=== PATIENT | female | born 1980 | race Caucasian/White ===

== ENCOUNTER → 2020-01-27 11:22 | Outpatient (BNVA) | payer OTHER, SELFPAY | PROVIDERS: PCP Internal Medicine; Visit Provider Physician Assistant | DX: Z98.84 Bariatric surgery status (principal); Z68.26 Body mass index [BMI] 26.0-26.9, adult; Z71.3 Dietary counseling and surveillance | CPT/HCPCS: 99214 ==

== ENCOUNTER 2020-03-07 07:58 | Emergency (ER) | payer OTHER, SELFPAY ==
[2020-03-07 08:08] VITALS: BP 120/71; PULSE 63; RESP 16; TEMP 36.9; O2SAT 99; BMI 30.2
--- NOTE | 2020-03-07 08:12 | ED.ASTHMA ---
HPI - Asthma General Chief Complaint: Asthma Stated Complaint: Asthma Time Seen by Provider: 03/07/20 08:12 Source: patient Mode of arrival: ambulatory Limitations: no limitations History of Present Illness HPI Narrative: 4 days of slight wheezing and cough complaint: asthma attack Onset (ago): day(s) Severity: mild Context: ran out of meds and medication non-compliance Associated symptoms: dry cough Asthma History: history of prior ED visit Related Data Current Asthma Therapy: none Home Medications Medication Instructions Recorded Confirmed albuterol (refill) 90 mcg INHALATION 01/27/20 01/27/20 mcg/actuation aerosol inhaler albuterol sulfate 2.5 mg INHALATION Q4-6H PRN 01/27/20 01/27/20 dicyclomine 20 mg tablet 20 mg PO BID 01/27/20 01/27/20 docusate sodium 100 mg capsule 100 mg PO DAILY 01/27/20 01/27/20 fluticasone propionate 110 1 puff INHALATION BID 01/27/20 01/27/20 mcg/actuation HFA aerosol inhaler loratadine 10 mg tablet 10 mg PO DAILY 01/27/20 01/27/20 quetiapine 25 mg tablet 25 mg PO DAILY 01/27/20 01/27/20 tramadol 50 mg tablet 50 mg PO BID PRN 01/27/20 01/27/20 zolpidem 10 mg tablet 10 mg PO BEDTIME PRN 01/27/20 01/27/20 Previous Rx's Medication Instructions Recorded docusate sodium 100 mg capsule 100 mg PO DAILY #30 cap 01/27/20 docusate sodium 100 mg capsule 100 mg PO DAILY #30 cap 01/27/20 albuterol sulfate 2 puff INHALATION QID #18 g 03/07/20 prednisone 60 mg PO DAILY #12 tab 03/07/20 Allergies Allergy/AdvReac Type Severity Reaction Status Date / Time iodine [Iodine] Allergy Severe ANAPHYLAXIS Verified 01/26/20 14:28 norethandrolone Allergy Severe TRIGGERS Verified 01/26/20 14:28 [NORETHANDROLONE] MIGRAINES Penicillins [PENICILLINS] Allergy Severe SWELLING/RA Verified 01/26/20 14:28 SH cyclobenzaprine Allergy Intermediate H/A,PALPITA Verified 01/26/20 14:28 [CYCLOBENZAPRINE] TIONS latex [LATEX] Allergy Intermediate HIVES,ITCHI Verified 01/26/20 14:28 NG Pt state s no known food Allergy Unknown Unknown Uncoded 01/26/20 14:27 Aller Review of Systems Constitutional: Constitutional: Reports no additional constitutional complaints Eyes: Eyes: Reports no additional eye complaints ENT: Denies dizziness Cardiovascular: Cardiovascular: Reports no additional cardiovascular complaints Respiratory: Respiratory: Reports as per HPI Gastrointestinal: Gastrointestinal: Reports no additional gastrointestinal complaints Genitourinary: Genitourinary: Reports no additional female genitourinary complaints Musculoskeletal: Musculoskeletal: Reports no additional musculoskeletal complaints Integumentary/Breasts: Skin/Breast: Denies rash Neurologic: Reports system reviewed and no additional complaints, except as documented, Denies dizziness and Denies Sensory deficit (Neuro) Psychiatric: Psychiatric: Denies anxiety PMFSH Past Medical History Medical History Acute depression Asthma Dysfunctional uterine bleeding GERD (gastroesophageal reflux disease) Hx of migraines Seizures Spina bifida Surgical History History of Lizzy-en-Y gastric bypass History of surgery on arm Family History Family History Father DM (diabetes mellitus) Asthma CVD (cardiovascular disease) Mother HTN (hypertension) DM (diabetes mellitus) Asthma CVD (cardiovascular disease) Brother No problems noted. Brother No problems noted. Sister No problems noted. Sister No problems noted. Social History Social History Alcohol intake: never Smoking Status: Never smoker Advance Directives: No Advance Directives Information Provided: No Physical Exam Vital Signs: Vital Signs: Last Vital Signs Temp 98.4 F 03/07/20 08:08 Pulse 63 03/07/20 08:08 Resp 16 03/07/20 08:08 BP 120/71 03/07/20 08:08 Pulse Ox 99 03/07/20 08:08 Body Mass Index 30.2 Const: General: healthy appearing Nutritional Appearance: average body habitus Orientation/consciousness: oriented to person and patient oriented x3 Limitations: no limitations HENMT: Head: Yes normal to inspection Ears: external ears normal General nose exam: Normal external nose present Mouth: Normal oral and palatal mucosa present and oropharynx normal Throat: Yes posterior oropharynx normal Eyes: General: appearance normal, both eyes and all related structures Neck: Other: supple Neck: Yes normal visual inspection Chest: Chest palpation & inspection: normal inspection of the chest Resp: Other: slight wheeze Cardio: Jugular venous distension: no JVD Rate: regular rate Rhythm: regular rhythm Heart sounds: S1 normal heart sound present and S2 normal heart sound present GI: Inspection: Yes normal to inspection Palpation (GI): Soft to palpation, nontender and No hepatosplenomegaly present Auscultation: normal bowel sounds : General: Yes no CVA tenderness Back/Spine/Pelvis: Back: no CVA tenderness Skin: General skin exam: no rashes or lesions noted Neuro: General: oriented to person and patient oriented x3 Cranial nerves: Yes CN's II-XII intact bilaterally Motor exam (neuro): 5/5 motor strength present throughout Sensory Exam: No Sensory deficit (Neuro) Extrem: General: Yes normal to inspection Psych: Appearance: grossly normal Course Course Course Narrative: Patient with slight asthma will give MDI and dc home MDM - Asthma MDM Narrative Medical decision making narrative: straight forward asthma will dc home Differential Diagnosis Differential diagnosis: Likely Acute exacerbation Discharge Plan Discharge Clinical Impression: Asthma Patient Disposition: Home, Self-Care Prescriptions: New albuterol sulfate 90 mcg/actuation HFA aerosol inhaler 2 puff inhalation QID Qty: 18 RF: 0 prednisone 20 mg tablet 60 mg PO DAILY Qty: 12 RF: 0 No Action Flovent HFA 110 mcg/actuation HFA aerosol inhaler 1 puff inhalation BID RF: 0 albuterol sulfate 2.5 mg /3 mL (0.083 %) solution for nebulization 2.5 mg inhalation Q4-6H PRNRF: 0 albuterol (refill) 90 mcg/actuation aerosol inhalation RF: 0 quetiapine [Seroquel] 25 mg tablet 25 mg PO DAILY RF: 0 loratadine [Allergy Relief (loratadine)] 10 mg tablet 10 mg PO DAILY RF: 0 zolpidem [Ambien] 10 mg tablet 10 mg PO BEDTIME PRNRF: 0 dicyclomine 20 mg tablet 20 mg PO BID RF: 0 tramadol 50 mg tablet 50 mg PO BID PRNRF: 0 docusate sodium [Colace] 100 mg capsule 100 mg PO DAILY RF: 0 docusate sodium [Colace] 100 mg capsule 100 mg PO DAILY Qty: 30 RF: 1 docusate sodium [Colace] 100 mg capsule 100 mg PO DAILY Qty: 30 RF: 1 Referrals: Physician,Unknown [Primary Care Provider] - 2 days
[2020-03-07] MEDS: Albuterol Sulfate 90 MCG 8 GM INHALER 2 PUFF INHALE (08:41)
[2020-03-07] MEDS: predniSONE 20 MG TABLET 60 MG PO (08:41)
== END 2020-03-07 08:44 | disposition home or self-care (01) ==
PROVIDERS: Emergency Provider Emergency Medicine
DX: J45.909 Unspecified asthma, uncomplicated (principal); Z98.84 Bariatric surgery status; Z79.899 Other long term (current) drug therapy
CPT/HCPCS: 99283

== ENCOUNTER → 2020-08-10 08:41 | Outpatient (BNVA) | payer OTHER, SELFPAY | PROVIDERS: Visit Provider Physician Assistant | DX: Z98.84 Bariatric surgery status (principal) | CPT/HCPCS: Q3014 ==

== ENCOUNTER 2020-08-13 09:38 | Outpatient (REF) | payer OTHER, SELFPAY ==
[2020-08-13 10:24] LABS: MANUAL DIFF FLAG NO
[2020-08-13 10:28] LABS: Basophils Absolute Auto 0.1 X10*3/uL (0.0-0.2); Basophils Percent Auto 1.6 % (0-2); Eosinophils Absolute Auto 0.1 X10*3/uL (0.0-0.4); Eosinophils Percent Auto 1.9 % (0-4); Hematocrit 32.7 % (37-47); Hemoglobin 10.1 g/dl (12.0-16.0); Lymphocytes Absolute Auto 1.5 X10*3/uL (1.2-4.9); Lymphocytes Percent Auto 40.7 % (20-40); Mean Corpuscular HGB Conc 30.9 g/dl (31.0-35.0); Mean Corpuscular Hemoglobin 24.3 pg (27.0-33.0); Mean Corpuscular Volume 78.6 fL (80-98); Mean Platelet Volume 10.8 fL (9.4-12.3); Monocytes Absolute Auto 0.5 X10*3/uL (0.1-1.2); Monocytes Percent Auto 13.2 % (2-11); Neutrophils Absolute Auto 1.6 X10*3/uL (2.0-8.3); Neutrophils Percent Auto 42.6 % (45-73); Platelet Count 326 X10*3/uL (160-400); Red Blood Count 4.16 X10*6/uL (4.20-5.50); Red Cell Distribution Width 16.9 % (11.0-16.0); White Blood Count 3.7 X10*3/uL (4.8-10.8)
[2020-08-13 10:49] LABS: Estimated Average Glucose 103 mg/dL; Hemoglobin A1c % 5.2 %
[2020-08-13 10:59] LABS: Alanine Aminotransferase 10 U/L (0-31); Alkaline Phosphatase 64 U/L (39-117); Anion Gap 11 (12-20); Aspartate Amino Transferase 12 U/L (5-31); Bilirubin Total 0.5 mg/dL (0.0-1.0); Blood Urea Nitrogen 13 mg/dL (9-16); C Reactive Protein 0.25 mg/dL (< or = 0.50); Calcium 8.8 mg/dL (8.4-10.2); Carbon Dioxide 25 mmol/L (22-29); Chloride 107 mmol/L (96-108); Cholesterol 177 mg/dL; Estimated Glomerular Filt Rate > 60; Glucose Random 90 mg/dL (60-115); HDL Cholesterol 54 mg/dL; Iron 31 mcg/dL (30-160); LDL Cholesterol Calculated 115 mg/dl; Percent Iron Saturation 8 % (15-50); Sodium 139 mmol/L (135-145); Total Iron Binding Capacity 407 mcg/dL (228-428); Total Protein 6.7 g/dL (6.5-8.0); Triglycerides 40 mg/dL; Unsaturated Iron Binding 376 ug/dL
[2020-08-13 11:32] LABS: Folate 18.7 ng/mL (> or = 4.0); Vitamin B12 415 pg/mL (200-900)
[2020-08-13 11:41] LABS: Ferritin < 1 ng/mL (10-122); TSH reflex Free T4 0.95 uIU/mL (0.32-4.0); Vitamin D 25-OH Total 29.8 ng/mL (>30)
[2020-08-14 08:51] LABS: Insulin Level Total 5.7 uIU/mL
[2020-08-14 19:47] LABS: Calcium (PTHI) 8.8 mg/dL (8.6-10.2); PTHI 92 pg/mL (14-64)
[2020-08-16 02:52] LABS: Zinc 84 mcg/dL (60-130)
[2020-08-16 23:03] LABS: Vitamin A 31 mcg/dL (38-98)
[2020-08-17 11:32] LABS: Vitamin B1 <6 nmol/L (8-30)
== END 2020-08-13 09:39 | disposition home or self-care (01) ==
LOC: HO.LAB 09:38
PROVIDERS: PCP Internal Medicine Geriatric Medicine; Visit Provider Physician Assistant
DX: Z98.84 Bariatric surgery status (principal)
CPT/HCPCS: 36415; 80053; 80061; 82306; 82607; 82728; 82746; 83036; 83525; 83540; 83970; 84425; 84443; 84590; 84630; 85025; 86140

== ENCOUNTER 2020-09-11 09:14 | Outpatient (REF) | payer OTHER, SELFPAY | END 2020-09-11 09:15 | disposition home or self-care (01) | LOC: HO.LAB 09:14 | PROVIDERS: PCP Internal Medicine Geriatric Medicine; Visit Provider Internal Medicine | DX: Z20.822 Contact with and (suspected) exposure to COVID-19 (principal) | CPT/HCPCS: C9803; U0003; U0005 ==

== ENCOUNTER 2021-02-07 07:39 | Outpatient (REF) | payer OTHER, SELFPAY ==
[2021-02-07 15:23] LABS: CT PCR NOT DETECTED (Not Detect.); NG PCR NOT DETECTED (Not Detect.)
[2021-02-08 09:42] LABS: BV Int Neg Control Negative (Negative); BV Int Pos Control Positive (Positive)
[2021-02-12 18:30] LABS: Vitamin A 33 mcg/dL (38-98)
== END 2021-02-07 07:40 | disposition home or self-care (01) ==
LOC: HO.LAB 07:39
PROVIDERS: Advanced Practice Midwife; PCP Internal Medicine Geriatric Medicine; Visit Provider Physician Assistant
DX: Z11.3 Encounter for screening for infections with a predominantly sexual mode of transmission (principal); R10.2 Pelvic and perineal pain; N92.6 Irregular menstruation, unspecified
CPT/HCPCS: 36415; 84590; 87086; 87088; 87186; 87480; 87491; 87510; 87591; 87660; 99212

== ENCOUNTER 2021-02-25 10:17 | Outpatient (REF) | payer OTHER, SELFPAY ==
--- NOTE | ~2021-02-25 | US_ITS ---
EXAMINATION: US PELVIS CLINICAL INFORMATION: N92.6 - Irregular menstruation, unspecified. LMP 02/02/2021. Age 40. Left ovarian origin removed. COMPARISON: Pelvic ultrasound 02/18/2018, CT abdomen and pelvis 09/07/2017. TECHNIQUE: Ultrasound of the pelvis is performed using both transabdominal and transvaginal transducers along with Doppler. Transvaginal imaging is performed due to inadequate visualization transabdominally. FINDINGS: Uterus: The uterus is anteverted and measures 6.7 x 2.8 x 5.4 cm. Volume 53 mL. The double wall endometrial thickness is normal for reproductive age group,13 mm. The uterus is smooth in contour and has normal myometrial echogenicity. No visible fibroid. Adnexa: The right ovary measures 3.6 x 1.6 x 2.3 cm, volume 6.9 mL. There is no right adnexal mass or pelvic ascites. There is normal color flow to the right ovary. No torsion. There has been prior left salpingo-oophorectomy. No recurrent solid mass. There is a circumscribed cystic lesion left pelvis measuring 3.4 x 0.9 x 1.6 cm. There is no internal septation or solid component. There is increased through-transmission of sound. No associated color flow. US/US pelvic and transvaginal IMPRESSION: 1. Uterus: Double wall endometrial thickness 1.3 cm. No fibroid. 2. Normal right ovary. No pelvic ascites. 3. Prior left salpingo-oophorectomy. Benign avascular cystic lesion left pelvis 3.4 x 0.9 x 1.6 cm possibly peritoneal inclusion cyst or paraovarian cyst.
[2021-02-25 11:42] LABS: HCG Quantitative < 2 mIU/mL; Thyroid Stimulating Hormone 0.92 uIU/mL (0.32-4.0)
[2021-02-26 18:07] LABS: DHEA Sulfate 200 mcg/dL (23-266)
[2021-02-26 21:56] LABS: Prolactin 17.8 ng/mL
[2021-03-02 16:22] LABS: Testosterone, Free 3.1 pg/mL (0.1-6.4); Testosterone, Total 37 ng/dL (2-45)
== END 2021-02-25 10:18 | disposition home or self-care (01) ==
LOC: HO.US 10:17
PROVIDERS: PCP Internal Medicine Geriatric Medicine; Visit Provider Advanced Practice Midwife
DX: N92.6 Irregular menstruation, unspecified (principal); R10.2 Pelvic and perineal pain
CPT/HCPCS: 36415; 76830; 76856; 82627; 83498; 84146; 84402; 84403; 84443; 84702

== ENCOUNTER 2021-03-11 12:04 | Outpatient (REF) | payer OTHER, SELFPAY ==
--- NOTE | ~2021-03-11 | XR_ITS ---
EXAMINATION: XR LUMBOSACRAL SPINE CLINICAL INFORMATION: Spondylosis COMPARISON: 12/21/2012 TECHNIQUE: Three views of the lumbosacral spine. FINDINGS: No fracture or subluxation. Vertebral body height and alignment maintained. Disc space narrowing with fusion at L1-L2, this is unchanged. There is also narrowing at the L3-L4 disc space which is similar to prior. Mild facet arthropathy at the lower lumbar spine. The sacroiliac joints are symmetric. The visualized sacrum is intact. XR/XR lumbar spine 2-3V IMPRESSION: Similar appearance to prior with multilevel degenerative changes above.
== END 2021-03-11 12:05 | disposition home or self-care (01) ==
LOC: HO.XRAY 12:04
PROVIDERS: Absent Provider Nurse Practitioner Family; PCP Internal Medicine Geriatric Medicine; Visit Provider Advanced Practice Midwife
DX: R93.89 Abnormal findings on diagnostic imaging of other specified body structures (principal); R10.2 Pelvic and perineal pain; K66.8 Other specified disorders of peritoneum; N92.6 Irregular menstruation, unspecified; Z90.79 Acquired absence of other genital organ(s); M47.816 Spondylosis without myelopathy or radiculopathy, lumbar region; T21.31XA Burn of third degree of chest wall, initial encounter; X10.1XXA Contact with hot food, initial encounter; Y93.9 Activity, unspecified; Y92.9 Unspecified place or not applicable; Y99.8 Other external cause status; Z90.721 Acquired absence of ovaries, unilateral; Z98.84 Bariatric surgery status; Z83.3 Family history of diabetes mellitus; Z82.49 Family history of ischemic heart disease and other diseases of the circulatory system; Z82.5 Family history of asthma and other chronic lower respiratory diseases; Z88.0 Allergy status to penicillin; Z88.8 Allergy status to other drugs, medicaments and biological substances; Z91.040 Latex allergy status; Z71.2 Person consulting for explanation of examination or test findings; Z79.899 Other long term (current) drug therapy
CPT/HCPCS: 72100; 99212; Q3014

== ENCOUNTER 2021-03-18 08:25 | Outpatient (REF) | payer OTHER, SELFPAY | END 2021-03-18 08:26 | disposition home or self-care (01) | LOC: HO.MAMMO 08:25 | PROVIDERS: PCP Internal Medicine Geriatric Medicine; Visit Provider Advanced Practice Midwife | DX: Z13.89 Encounter for screening for other disorder (principal) ==

== ENCOUNTER 2021-06-17 10:30 | Outpatient (REF) | payer OTHER, SELFPAY ==
[2021-06-17 14:41] LABS: CT PCR NOT DETECTED (Not Detect.); NG PCR NOT DETECTED (Not Detect.)
[2021-06-18 14:11] LABS: BV Int Neg Control Negative (Negative); BV Int Pos Control Positive (Positive)
[2021-06-22 09:06] LABS: HPV 16 RNA NOT DETECTED (NOT DETECTED); HPV mRNA E6/E7 rflx Detected (Not Detected)
== END 2021-06-17 10:31 | disposition home or self-care (01) ==
LOC: HO.LAB 10:30
PROVIDERS: PCP Internal Medicine Geriatric Medicine; Visit Provider Obstetrics & Gynecology
DX: Z01.411 Encounter for gynecological examination (general) (routine) with abnormal findings (principal); Z11.51 Encounter for screening for human papillomavirus (HPV); R10.2 Pelvic and perineal pain
CPT/HCPCS: 87480; 87491; 87510; 87591; 87624; 87625; 87660; 88142; 99212

== ENCOUNTER 2021-06-25 07:21 | Outpatient (REF) | payer OTHER, SELFPAY ==
--- NOTE | ~2021-06-25 | MM_ITS ---
EXAMINATION: MM SCREENING DIGITAL BREAST TOMOSYNTHESIS, BILATERAL CLINICAL INFORMATION: Screening. Asymptomatic. The lifetime risk of breast cancer based on the Tyrer-Cuzick Model is 10%. COMPARISON: Mammography: None TECHNIQUE: Digital breast tomosynthesis is performed in both the craniocaudal and mediolateral oblique views along with computer-aided detection (CAD). Synthesized 2D images are generated from the tomosynthesis. FINDINGS: There are scattered areas of fibroglandular density (ACR BI-RADS breast composition Category b). There are no significant masses, abnormal calcifications, or other abnormalities. MM/MM tomosynthesis screening BI IMPRESSION: No mammographic evidence of malignancy. ASSESSMENT: BI-RADS 1: Negative RECOMMENDATION: Routine annual mammography screening. This patient's information was entered into a reminder system with a target due date for their next mammogram.
== END 2021-06-25 07:22 | disposition home or self-care (01) ==
LOC: HO.MAMMO 07:21
PROVIDERS: PCP Internal Medicine Geriatric Medicine; Visit Provider Advanced Practice Midwife
DX: Z12.31 Encounter for screening mammogram for malignant neoplasm of breast (principal)
CPT/HCPCS: 77063; 77067

== ENCOUNTER → 2021-07-01 21:28 | Outpatient (REF) | payer OTHER, SELFPAY | LOC: HO.SL 21:28 | PROVIDERS: Visit Provider Internal Medicine Geriatric Medicine | DX: G47.33 Obstructive sleep apnea (adult) (pediatric) (principal) | CPT/HCPCS: 95810 ==

== ENCOUNTER 2021-07-11 10:28 | Outpatient (REF) | payer OTHER, SELFPAY ==
--- NOTE | ~2021-07-11 | US_ITS ---
EXAMINATION: US PELVIS CLINICAL INFORMATION: Pelvic and perineal pain COMPARISON: 02.25.2021 TECHNIQUE: Ultrasound of the pelvis is performed using both transabdominal and transvaginal transducers along with Doppler. Transvaginal imaging is performed due to inadequate visualization transabdominally. FINDINGS: Uterus: The uterus is anteverted and measures 7.5 x 2.9 x 6.3 cm. Uterus is arcuate in configuration. The double wall endometrial thickness is 10 mm. The uterus is smooth in contour and has normal myometrial echogenicity. No visible fibroid. Adnexa: Left salpingo-oophorectomy. Within the left adnexa, there is a similar-appearing anechoic fluid collection measuring 4.1 x 1.2 x 1.8 cm, previously 3.4 x 0.9 x 1.6 cm. No solid components. Right ovary normal in size and appearance measuring 3.8 x 1.5 x 2.2 cm containing a corpus obtained measuring 1.4 cm Small pelvic free fluid is normal in a female of reproductive age. US/US pelvic and transvaginal IMPRESSION: * Left salpingo-oophorectomy. * Increased size of a benign-appearing simple fluid collection within the left adnexa, possibly peritoneal inclusion cyst or paraovarian cyst.
== END 2021-07-11 10:29 | disposition home or self-care (01) ==
LOC: HO.US 10:28
PROVIDERS: PCP Internal Medicine Geriatric Medicine; Visit Provider Obstetrics & Gynecology
DX: R10.2 Pelvic and perineal pain (principal)
CPT/HCPCS: 76830; 76856

== ENCOUNTER → 2021-07-25 11:28 | Outpatient (BNVA) | payer OTHER, SELFPAY | PROVIDERS: PCP Internal Medicine Geriatric Medicine; Visit Provider Obstetrics & Gynecology | DX: R10.2 Pelvic and perineal pain (principal) | CPT/HCPCS: Q3014 ==

== ENCOUNTER → 2021-08-09 08:34 | Outpatient (BNVA) | payer OTHER, SELFPAY | PROVIDERS: Referring Provider Internal Medicine Geriatric Medicine; Visit Provider Physician Assistant | DX: E66.9 Obesity, unspecified (principal); Z68.32 Body mass index [BMI] 32.0-32.9, adult; Z98.84 Bariatric surgery status | CPT/HCPCS: 99212 ==

== ENCOUNTER 2021-08-19 08:32 | Outpatient (REF) | payer OTHER, SELFPAY ==
--- NOTE | ~2021-08-19 | MR_ITS ---
EXAMINATION: MRI PELVIS WITH AND WITHOUT CONTRAST CLINICAL INFORMATION: Reason for Exam R10.2 - Pelvic and perineal pain COMPARISON: Pelvic ultrasound 07/11/2021, CT abdomen pelvis 09/07/2017 TECHNIQUE: Multiple routine MRI sequences through the pelvis were obtained before and after the uneventful administration of 8 mL of Gadavist gadolinium-based IV contrast. FINDINGS: UTERUS: Anteverted uterus is remarkable for arcuate morphology bordering on possibly partially septate and measures 6.4 x 5.2 x 3.4 cm ([id number] x anterior-posterior x transverse). Endometrium is uniform and measures 1.0 cm in thickness. There is focal thickening of the junctional zone along the posterior uterine fundus to 1.3 cm in thickness, which could be seen in the setting of adenomyosis.. No focal uterine mass seen. CERVIX: Unremarkable. VAGINA: Unremarkable. OVARIES: The right ovary measures 2.8 x 2.3 x 1.4 cm. Right ovary is unremarkable in appearance. The left ovary surgically absent. No adnexal mass. KIDNEYS: Two normally positioned kidneys are seen. No hydronephrosis. BLADDER: Unremarkable. PELVIC FREE FLUID: No free fluid or ascites. LYMPH NODES: No pathologically enlarged lymph nodes. OSSEOUS STRUCTURES: No acute or suspicious osseous abnormalities. MR/MR pelvis wo/w con IMPRESSION: Arcuate bordering on possibly partially septate morphology of the uterus, with focal thickening of the junctional zone to 1.3 cm, which can be seen in the setting of adenomyosis. Status post left oophorectomy. No adnexal mass.
[2021-08-19 09:00] LABS: MANUAL DIFF FLAG NO
[2021-08-19 09:07] LABS: Basophils Percent Auto 0.9 % (0-2); Eosinophils Absolute Auto 0.1 X10*3/uL (0.0-0.4); Eosinophils Percent Auto 1.1 % (0-4); Hematocrit 37.4 % (37.0-47.0); Hemoglobin 12.6 g/dl (12.0-16.0); Imm Gran Abs Auto 0.01 X10*3/uL (0.00-0.03); Imm Gran Pct Auto 0.2 % (0.0-0.4); Lymphocytes Absolute Auto 1.5 X10*3/uL (1.2-4.9); Lymphocytes Percent Auto 35.1 % (20-40); Mean Corpuscular HGB Conc 33.7 g/dl (31.0-35.0); Mean Corpuscular Hemoglobin 29.9 pg (27.0-33.0); Mean Corpuscular Volume 88.8 fL (80.0-98.0); Mean Platelet Volume 10.8 fL (9.4-12.3); Monocytes Absolute Auto 0.5 X10*3/uL (0.1-1.2); Neutrophils Absolute Auto 2.3 x10*3/uL (2.0-8.3); Neutrophils Percent Auto 51.7 % (45-73); Platelet Count 259 X10*3/uL (160-400); Red Blood Count 4.21 X10*6/uL (4.20-5.50); Red Cell Distribution Width 14.2 % (11.0-16.0); White Blood Count 4.4 X10*3/uL (4.8-10.8)
[2021-08-19 09:19] LABS: Estimated Average Glucose 100 mg/dL; Hemoglobin A1c % 5.1 %
[2021-08-19 09:43] LABS: Alanine Aminotransferase 16 U/L (0-31); Albumin Level 3.9 g/dL (3.5-5.0); Alkaline Phosphatase 63 U/L (39-117); Anion Gap 9 (12-20); Aspartate Amino Transferase 17 U/L (5-31); Bilirubin Total 0.4 mg/dL (0.0-1.0); Blood Urea Nitrogen 13 mg/dL (9-16); C Reactive Protein 0.16 mg/dL (< or = 0.50); Calcium 9.1 mg/dL (8.4-10.2); Carbon Dioxide 26 mmol/L (22-29); Chloride 107 mmol/L (96-108); Cholesterol 190 mg/dL; Estimated Glomerular Filt Rate > 60; Glucose Random 94 mg/dL (60-115); HDL Cholesterol 61 mg/dL; Iron 115 mcg/dL (30-160); LDL Cholesterol Calculated 119 mg/dl; Percent Iron Saturation 32 % (15-50); Sodium 138 mmol/L (135-145); Total Iron Binding Capacity 356 mcg/dL (228-428); Total Protein 6.8 g/dL (6.5-8.0); Triglycerides 54 mg/dL; Unsaturated Iron Binding 241 ug/dL
[2021-08-19 09:55] LABS: Ferritin 5 ng/mL (10-250); TSH reflex Free T4 1.08 uIU/mL (0.32-4.0); Vitamin D 25-OH Total 26.7 ng/mL (>30)
[2021-08-19 10:18] LABS: Folate > 20.0 ng/mL (> or = 4.0); Vitamin B12 368 pg/mL (200-900)
[2021-08-19 10:25] LABS: Insulin 6 uU/mL (2-29)
[2021-08-20 18:01] LABS: Calcium (PTHI) 8.8 mg/dL (8.6-10.2); PTHI 88 pg/mL (16-77)
[2021-08-22 14:15] LABS: Zinc 68 mcg/dL (60-130)
[2021-08-24 00:12] LABS: Vitamin A 33 mcg/dL (38-98)
[2021-08-24 13:26] LABS: Vitamin B1 12 nmol/L (8-30)
== END 2021-08-19 08:33 | disposition home or self-care (01) ==
LOC: HO.MRI 08:32
PROVIDERS: Referring Provider Physician Assistant; Visit Provider Obstetrics & Gynecology
DX: R10.2 Pelvic and perineal pain (principal); E66.9 Obesity, unspecified; Z98.84 Bariatric surgery status; Z90.721 Acquired absence of ovaries, unilateral
CPT/HCPCS: 36415; 72197; 80053; 80061; 82306; 82607; 82728; 82746; 83036; 83525; 83540; 83970; 84425; 84443; 84590; 84630; 85025; 86140; A9585

== ENCOUNTER → 2021-08-22 14:56 | Outpatient (BNVA) | payer OTHER, SELFPAY | PROVIDERS: Visit Provider Obstetrics & Gynecology | DX: Q51.810 Arcuate uterus (principal) | CPT/HCPCS: 99212 ==

== ENCOUNTER → 2022-02-12 10:29 | Outpatient (BNVA) | payer OTHER, SELFPAY | PROVIDERS: PCP Internal Medicine Geriatric Medicine; Visit Provider Physician Assistant Surgical | DX: E66.9 Obesity, unspecified (principal); Z68.32 Body mass index [BMI] 32.0-32.9, adult; Z98.84 Bariatric surgery status | CPT/HCPCS: 99212 ==

== ENCOUNTER 2022-03-14 08:56 | Outpatient (REF) | payer OTHER, SELFPAY ==
--- NOTE | ~2022-03-14 | XR_ITS ---
EXAMINATION: XR FOOT, LEFT CLINICAL INFORMATION: Pain. COMPARISON: Radiographs dated 01/08/2012. TECHNIQUE: AP, lateral, and oblique views of the left foot. FINDINGS: Bony alignment and mineralization are normal. No fracture, dislocation or left ankle joint effusion is seen. Boehler's angle is normal. There are small posterior and moderate plantar calcaneal spurs. No abnormal bone erosion or periosteal thickening is seen. A sclerotic bone island is redemonstrated within the first proximal phalanx, unchanged from prior. No soft tissue gas or swelling is seen. Small radiopaque linear foreign bodies are redemonstrated in the medial soft tissues, unchanged from remote prior. XR/XR foot LT 2V IMPRESSION: 1. No fracture, dislocation or left ankle joint effusion is seen. 2. There are left calcaneal spurs.
[2022-03-14 10:12] LABS: Erythrocyte Sedimentation Rate 8 MM/HR (0-20)
[2022-03-14 11:38] LABS: Alanine Aminotransferase 12 U/L (0-31); Aspartate Amino Transferase 12 U/L (5-31); Blood Urea Nitrogen 22 mg/dL (9-16); C Reactive Protein 0.11 mg/dL (< or = 0.50); Estimated Glomerular Filt Rate > 60
== END 2022-03-14 08:57 | disposition home or self-care (01) ==
LOC: HO.LAB 08:56
PROVIDERS: PCP Internal Medicine Geriatric Medicine; Visit Provider Nurse Practitioner Family
DX: M79.672 Pain in left foot (principal); R20.0 Anesthesia of skin; R20.2 Paresthesia of skin; M47.816 Spondylosis without myelopathy or radiculopathy, lumbar region; T30.0 Burn of unspecified body region, unspecified degree
CPT/HCPCS: 36415; 73620; 82565; 84450; 84460; 84520; 85652; 86140; 99212

== ENCOUNTER 2022-07-21 09:58 | Outpatient (REF) | payer OTHER, SELFPAY ==
[2022-07-21 12:29] LABS: Amphetamine Screen Urine Not Detected (Not Detect); Barbiturates, Urine Not Detected (Not Detect); Benzodiazepines Screen Urine Not Detected (Not Detect); Cannabinoid Screen Urine Not Detected (Not Detect); Cocaine Screen Urine Not Detected (Not Detect); Fentanyl, urine Not Detected (Not Detect); Opiate Screen Urine Not Detected (Not Detect); Phencyclidine Screen Urine Not Detected (Not Detect)
== END 2022-07-21 09:59 | disposition home or self-care (01) ==
LOC: HO.LAB 09:58
PROVIDERS: PCP Internal Medicine Geriatric Medicine; Visit Provider Nurse Practitioner Family
DX: Z51.81 Encounter for therapeutic drug level monitoring (principal); Z79.899 Other long term (current) drug therapy
CPT/HCPCS: 80307; 80373

== ENCOUNTER 2022-07-29 11:45 | Emergency (ER) | payer OTHER, SELFPAY ==
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
--- NOTE | ~2022-07-29 | XR_ITS ---
EXAMINATION: XR RIBS, LEFT CLINICAL INFORMATION: Rib pain COMPARISON: None available. TECHNIQUE: 4 views of the left ribs were obtained. FINDINGS: Lungs are clear. No consolidation, pneumothorax, or pleural effusion. The cardiomediastinal silhouette and pulmonary vasculature are normal. There is surgical clips in the left upper abdomen. Skin marker positioned along the lateral aspect of the inferior rib cage. No acute displaced rib fractures seen. No suspicious bony lesion identified. XR/XR ribs LT min 3V w CXR1V IMPRESSION: No acute pulmonary process. No acute displaced rib fractures seen. Etiology of patient's symptoms has not been determined by x-ray.
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
--- NOTE | 2022-07-29 12:15 | ECG_ITS ---
Test Reason : dizzy Blood Pressure : / mmHG Vent. Rate : 058 BPM Atrial Rate : 058 BPM P-R Int : 152 ms QRS Dur : 084 ms QT Int : 400 ms P-R-T Axes : 034 021 023 degrees QTc Int : 392 ms Sinus bradycardia Otherwise normal ECG When compared to the previous EKG of No significant changes seen Referred By: Suad Gudino Electronically Signed By:Vj Castillo
[2022-07-29 12:20] VITALS: BP 121/70; PULSE 64; RESP 16; TEMP 36.2; O2SAT 98; BMI 31.9
[2022-07-29 12:27] LABS: MANUAL DIFF FLAG NO
[2022-07-29 12:28] LABS: Basophils Absolute Auto 0.1 X10*3/uL (0.0-0.2); Basophils Percent Auto 1.5 % (0-2); Eosinophils Absolute Auto 0.1 X10*3/uL (0.0-0.4); Eosinophils Percent Auto 2.5 % (0-4); Hematocrit 40.9 % (37.0-47.0); Hemoglobin 13.3 g/dl (12.0-16.0); Imm Gran Abs Auto 0.01 X10*3/uL (0.00-0.03); Imm Gran Pct Auto 0.3 % (0.0-0.4); Lymphocytes Absolute Auto 1.6 X10*3/uL (1.2-4.9); Lymphocytes Percent Auto 40.9 % (20-40); Mean Corpuscular HGB Conc 32.5 g/dl (31.0-35.0); Mean Corpuscular Hemoglobin 29.8 pg (27.0-33.0); Mean Corpuscular Volume 91.5 fL (80.0-98.0); Mean Platelet Volume 11.3 fL (9.4-12.3); Monocytes Absolute Auto 0.6 X10*3/uL (0.1-1.2); Monocytes Percent Auto 16.2 % (2-11); Neutrophils Absolute Auto 1.5 x10*3/uL (2.0-8.3); Neutrophils Percent Auto 38.6 % (45-73); Platelet Count 284 X10*3/uL (160-400); Red Blood Count 4.47 X10*6/uL (4.20-5.50); Red Cell Distribution Width 14.4 % (11.0-16.0); White Blood Count 3.9 X10*3/uL (4.8-10.8)
[2022-07-29 12:41] LABS: Prothrombin Time 11.4 SEC (10.0-13.1)
[2022-07-29 12:48] LABS: Alanine Aminotransferase 11 U/L (0-31); Albumin Level 4.3 g/dL (3.5-5.0); Alkaline Phosphatase 77 U/L (39-117); Anion Gap 12 (12-20); Aspartate Amino Transferase 14 U/L (5-31); Bilirubin Direct 0.1 mg/dL (0.0-0.5); Bilirubin Total 0.4 mg/dL (0.0-1.0); Blood Urea Nitrogen 12 mg/dL (9-16); Calcium 9.2 mg/dL (8.4-10.2); Carbon Dioxide 27 mmol/L (22-29); Chloride 106 mmol/L (96-108); Creatinine Clr Calc Pharmacy 103.4; Estimated Glomerular Filt Rate > 60; Glucose Random 71 mg/dL (60-115); Lipase 29 U/L (8-78); Potassium 4.6 mmol/L (3.3-5.1); Sodium 140 mmol/L (135-145)
== END 2022-07-29 17:09 | disposition home or self-care (01) ==
PROVIDERS: Physician Assistant; Emergency Provider Student in an Organized Health Care Education/Training Program; PCP Internal Medicine Geriatric Medicine
DX: S06.0X0A Concussion without loss of consciousness, initial encounter (principal); S20.212A Contusion of left front wall of thorax, initial encounter; S39.012A Strain of muscle, fascia and tendon of lower back, initial encounter; V43.52XA Car driver injured in collision with other type car in traffic accident, initial encounter; Y93.89 Activity, other specified; Y92.414 Local residential or business street as the place of occurrence of the external cause; Y99.9 Unspecified external cause status
CPT/HCPCS: 36415; 70450; 71101; 72125; 80048; 80076; 83690; 85025; 85610; 93005; 99284

== ENCOUNTER 2022-10-27 07:43 | Outpatient (AMB) | payer OTHER, SELFPAY ==
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
[2022-10-27 07:59] VITALS: BP 124/78; PULSE 59; TEMP 36.4; O2SAT 95; BMI 34.2
== END 2022-10-27 08:24 | disposition home or self-care (01) ==
PROVIDERS: PCP Internal Medicine Geriatric Medicine; Visit Provider Internal Medicine Rheumatology
DX: M47.812 Spondylosis without myelopathy or radiculopathy, cervical region (principal); Z51.81 Encounter for therapeutic drug level monitoring; M47.816 Spondylosis without myelopathy or radiculopathy, lumbar region
CPT/HCPCS: 99213

== ENCOUNTER → 2022-10-27 07:43 | Outpatient (BNVA) | payer OTHER, SELFPAY | PROVIDERS: PCP Internal Medicine Geriatric Medicine; Visit Provider Internal Medicine Rheumatology ==

== ENCOUNTER 2022-12-18 09:04 | Outpatient (REF) | payer OTHER, SELFPAY ==
[2022-12-24 06:34] LABS: HPV mRNA E6/E7 rflx Detected (Not Detected)
[2022-12-24 06:38] LABS: HPV 16 RNA NOT DETECTED (NOT DETECTED)
== END 2022-12-18 09:05 | disposition home or self-care (01) ==
LOC: HO.LNP 09:04
PROVIDERS: PCP Internal Medicine Geriatric Medicine; Visit Provider Obstetrics & Gynecology
DX: Z01.419 Encounter for gynecological examination (general) (routine) without abnormal findings (principal)
CPT/HCPCS: 87624; 87625; 88142

== ENCOUNTER 2022-12-18 09:04 | Outpatient (AMB) | payer OTHER, SELFPAY ==
--- NOTE | 2022-12-18 09:19 | A.OFFVIS_ITS ---
Intake Vital Signs 12/18/22 09:20 Height 5 ft 1 in Weight 179 lb BMI 33.8 BP 110/62 Intake Visit Reasons: annual Edger Feeder Required: No Information Interpreted: non-clinical & clinical Supervisor Accounts Receivable: Supervisor Accounts Receivable Present (Emma) Allergies iodine [Iodine] Allergy (Severe, Verified 12/18/22 09:24) ANAPHYLAXIS norethandrolone [NORETHANDROLONE] Allergy (Severe, Verified 12/18/22 09:24) TRIGGERS MIGRAINES Penicillins [PENICILLINS] Allergy (Severe, Verified 12/18/22 09:24) SWELLING/RASH cyclobenzaprine [CYCLOBENZAPRINE] Allergy (Intermediate, Verified 12/18/22 09:24) H/A,PALPITATIONS latex [LATEX] Allergy (Intermediate, Verified 12/18/22 09:24) HIVES,ITCHING red dye Allergy (Verified 12/18/22 09:24) rash lactose Adverse Reaction (Verified 12/18/22 09:24) Unknown Pt state s no known food Aller Allergy (Unknown, Uncoded 12/18/22 09:24) Unknown blue dye Allergy (Uncoded 12/18/22 09:24) Rash Is last menstrual period known: Yes Last menstrual period: 12/04/22 Post menopausal: No HPI HPI Comments History of Present Illness Details Presenting for annual exam. No complaints. Last Pap/HPV was negative/HPV E6 [id number] on 06/25 Last Mammogram was BI-RADS 1 on 06/25 [facility] Medical History Dysfunctional uterine bleeding Seizures Spina bifida GERD (gastroesophageal reflux disease) Acute depression Hx of migraines Asthma Surgical History (Updated 12/18/22 @ 09:26 by KYAW Crespo) Hx of unilateral oophorectomy History of Lizzy-en-Y gastric bypass History of surgery on arm Family History (Updated 12/18/22 @ 09:26 by KYAW Crespo) Father DM (diabetes mellitus) Asthma CVD (cardiovascular disease) Mother HTN (hypertension) DM (diabetes mellitus) Asthma CVD (cardiovascular disease) Brother No problems noted. Brother No problems noted. Sister Uterine cancer Sister No problems noted. Social History Alcohol intake: never Patient Tobacco Use Status: Never used Tobacco Sexual orientation: Straight/Heterosexual Gender identity: Female Female Reproductive History Menstrual Age of Menarche: 9 Duration of menses: 6-7 days Date of last menstrual period: 12/04/22 control method: none Total pregnancies: 0 Date of last pap smear: 06/18/21 (+HPV) History of abnormal pap smear: Yes Date of Mammogram: 06/25/21 Review of Systems Const All systems reviewed & are unremarkable except as noted in HPI and below Card Reports as per HPI Resp Reports as per HPI GI Reports as per HPI and Reports no additional complaints Reports as per HPI Physical Exam Vital Signs: Last Vital Signs BP 110/62 12/18/22 09:20 BMI result Body Mass Index 33.8 Const General: cooperative, healthy appearing and comfortable Chest Chest palpation & inspection: normal inspection of the chest and normal palpation of entire chest wall Breast/axilla inspection: normal inspection of the breasts and normal inspection of the axillae Breast/axilla palpation: normal palpation of the breasts, normal palpation of the axillae and no axillary lymphadenopathy Resp Effort & Inspection: normal respiratory effort Auscultation: clear to auscultation bilaterally Percussion: percussion normal Cardio Palpation: normal PMI Rate: regular rate Rhythm: regular rhythm Heart sounds: no murmurs and no rubs Peripheral pulses: Peripheral pulses 2+ throughout GI Inspection: Yes normal to inspection Palpation (GI): Soft to palpation, nontender, no guarding, not rigid and No hepatosplenomegaly present Percussion: Yes normal to percussion Auscultation: normal bowel sounds Rectal Exam - Female: deferred General: Yes bladder normal to palpation External Female Exam: No lesion Speculum Exam - Vagina: normal appearance of the vagina, normal palpation, normal vaginal discharge and not erythematous Speculum Exam - Cervix: normal appearance of the cervix and normal palpation Bimanual exam- vagina & uterus: normal bimanual exam, normal palpation, uterine size normal, bladder normal to palpation, consistency normal and normal palpation Bimanual Exam- Adnexa, other: normal adnexae, no masses and no tenderness Assessment & Plan Assessment & Plan (1) Well woman exam: Code(s): Z01.419 - Encounter for gynecological examination (general) (routine) without abnormal findings Plan: Cotesting done. Per ASCCP guidelines if negative co testing repeat in 3 years, if abnormal Pap or HPV positive will proceed to colposcopy. Mammogram ordered. Counseled the patient about the recommended dietary allowance of 1000 mg of Calcium & 600 IU of vitamin D. The patient was instructed to perform monthly self-breast exams and to schedule an annual exam in a year; All questions answered and the patient verbalized understanding. Instructed the patient to schedule annual exam in a year Orders: Orders MM screening mammo BI Today Z12.31 - Encounter for screening mammogram for malignant neoplasm of breast Pap Smear Today Z01.419 - Encounter for gynecological examination (general) (routine) without abnormal findings Coding Level of Care Code Est Pt Prev Care 40-64y(41992) Diagnoses Well woman exam Z01.419
[2022-12-18 09:20] VITALS: BP 110/62; BMI 33.8
== END 2022-12-18 09:57 | disposition home or self-care (01) ==
PROVIDERS: PCP Internal Medicine Geriatric Medicine; Visit Provider Obstetrics & Gynecology
DX: Z01.419 Encounter for gynecological examination (general) (routine) without abnormal findings (principal)
CPT/HCPCS: 99396

== ENCOUNTER 2023-01-19 11:38 | Outpatient (REF) | payer OTHER, SELFPAY | END 2023-01-19 11:39 | disposition home or self-care (01) | LOC: HO.LNP 11:38 | PROVIDERS: PCP Internal Medicine Geriatric Medicine; Visit Provider Obstetrics & Gynecology | DX: Z32.02 Encounter for pregnancy test, result negative (principal); A63.0 Anogenital (venereal) warts; B97.7 Papillomavirus as the cause of diseases classified elsewhere | CPT/HCPCS: 57454; 81025; 88305 ==

== ENCOUNTER 2023-01-19 11:38 | Outpatient (AMB) | payer OTHER, SELFPAY ==
--- NOTE | 2023-01-19 11:46 | A.OFFVIS_ITS ---
Intake Vital Signs 01/19/23 11:57 Height 5 ft 1 in BP 100/62 Intake Visit Reasons: Colposcopy Elevator Constructor: Elevator Constructor Present (Emma) Allergies iodine [Iodine] Allergy (Severe, Verified 12/18/22 09:24) ANAPHYLAXIS norethandrolone [NORETHANDROLONE] Allergy (Severe, Verified 12/18/22 09:24) TRIGGERS MIGRAINES Penicillins [PENICILLINS] Allergy (Severe, Verified 12/18/22 09:24) SWELLING/RASH cyclobenzaprine [CYCLOBENZAPRINE] Allergy (Intermediate, Verified 12/18/22 09:24) H/A,PALPITATIONS latex [LATEX] Allergy (Intermediate, Verified 12/18/22 09:24) HIVES,ITCHING red dye Allergy (Verified 12/18/22 09:24) rash lactose Adverse Reaction (Verified 12/18/22 09:24) Unknown Pt state s no known food Aller Allergy (Unknown, Uncoded 12/18/22 09:24) Unknown blue dye Allergy (Uncoded 12/18/22 09:24) Rash PFSH Medical History (Updated 01/19/23 @ 12:14 by Aram Hogan MD) Dysfunctional uterine bleeding Seizures Spina bifida GERD (gastroesophageal reflux disease) Acute depression Hx of migraines Asthma Surgical History (Updated 12/18/22 @ 09:26 by KYAW Crespo) Hx of unilateral oophorectomy History of Lizzy-en-Y gastric bypass History of surgery on arm Family History (Updated 12/18/22 @ 09:26 by KYAW Crespo) Father DM (diabetes mellitus) Asthma CVD (cardiovascular disease) Mother HTN (hypertension) DM (diabetes mellitus) Asthma CVD (cardiovascular disease) Brother No problems noted. Brother No problems noted. Sister Uterine cancer Sister No problems noted. Social History Alcohol intake: never Patient Tobacco Use Status: Never used Tobacco Sexual orientation: Straight/Heterosexual Gender identity: Female Female Reproductive History Menstrual Age of Menarche: 9 Physical Exam Vital Signs: Last Vital Signs BP 100/62 01/19/23 11:57 Office Procedures Colposcopy Before the procedure was started discussed with the patient the procedure, alternatives & all the risks associated with the procedure (bleeding, infection, injury to vagina, bladder, vessels, possible need for transfusion with all its risks) then patient signed the consent Pap smear = Pap negative/HPV pause Urine test done in the office was negative Speculum inserted, acetic acid used Colposcopy done Transformation zone seen, acetowhite lesions identified at 4+8+9+11+12+1+3 o?clock, cervical biopsies taken from 4+8+9+11+12+1+3 o?clock, ECC done afterwards. Vaginoscopy of the upper vagina showed no evidence of any aceto-white lesions Monsel solution used for hemostasis. The patient tolerated well . At the end the patient was instructed to call if temp>100.4, abdominal pain, n/v, bleeding; The patient was given the following instructions: nothing per vagina, no intercourse or bath tub use. All questions answered the patient verbalized understanding. Instructed the patient to make an appointment in 2 weeks for follow-up This note was generated with a voice recognition program. Some errors may have been overlooked during the review of this note. Sometimes these errors may affect the content or meaning of a given sentence. [id number] of cervix including upper vagina with biopsy and ECC Procedure code (CPT) selection complete Results AMB Test Urine AMB Test Urine Negative Last Edit by KYAW Sparks on 01/19/23 11:58 Results Reviewed Results Reviewed: Laboratory Last Values [facility]st Clinic Negative 01/19/23 11:57 Assessment & Plan Assessment & Plan Orders: Orders AMB HCG Urine Test Today Z32.02 - Encounter for test, result negative AMB Colposcopy Today B97.7 - Papillomavirus as the cause of diseases classified elsewhere Coding Level of Care Code Procedure Only CPT Codes Colposcopy - CPT: 70649-Hxlcfsyjg of cervix including upper vagina with biopsy and ECC ([id number])
[2023-01-19 11:57] VITALS: BP 100/62
== END 2023-01-19 12:20 | disposition home or self-care (01) ==
LOC: HO.HWS 11:38
PROVIDERS: PCP Internal Medicine Geriatric Medicine; Visit Provider Obstetrics & Gynecology
DX: R87.810 Cervical high risk human papillomavirus (HPV) DNA test positive (principal); Z32.02 Encounter for pregnancy test, result negative
CPT/HCPCS: 57454

== ENCOUNTER 2023-01-27 08:25 | Outpatient (REF) | payer OTHER, SELFPAY | END 2023-01-27 08:26 | disposition home or self-care (01) | LOC: HO.MAMMO 08:25 | PROVIDERS: PCP Internal Medicine Geriatric Medicine; Visit Provider Obstetrics & Gynecology | DX: Z12.31 Encounter for screening mammogram for malignant neoplasm of breast (principal) | CPT/HCPCS: 77063; 77067 ==

== ENCOUNTER → 2023-01-27 08:45 | Outpatient (BNV) | payer OTHER, SELFPAY | PROVIDERS: PCP Internal Medicine Geriatric Medicine; Visit Provider Radiology Diagnostic Radiology | DX: Z12.31 Encounter for screening mammogram for malignant neoplasm of breast (principal) | CPT/HCPCS: 77063; 77067 ==

== ENCOUNTER 2023-02-16 12:24 | Outpatient (AMB) | payer OTHER, SELFPAY ==
--- NOTE | 2023-02-16 12:26 | A.OFFVIS_ITS ---
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 Information Interpreted: non-clinical & clinical Accompanied by: Self / Same As Patient Allergies iodine [Iodine] Allergy (Severe, Verified 02/16/23 12:28) ANAPHYLAXIS norethandrolone [NORETHANDROLONE] Allergy (Severe, Verified 02/16/23 12:28) TRIGGERS MIGRAINES Penicillins [PENICILLINS] Allergy (Severe, Verified 02/16/23 12:28) SWELLING/RASH cyclobenzaprine [CYCLOBENZAPRINE] Allergy (Intermediate, Verified 02/16/23 12:28) H/A,PALPITATIONS latex [LATEX] Allergy (Intermediate, Verified 02/16/23 12:28) HIVES,ITCHING red dye Allergy (Verified 02/16/23 12:28) rash lactose Adverse Reaction (Verified 02/16/23 12:) Unknown Pt state s no known food Aller Allergy (Unknown, Uncoded 02/16/23 12:28) Unknown blue dye Allergy (Uncoded 02/16/23 12:28) Rash Is last menstrual period known: Yes Last menstrual period: 01/23/23 HPI HPI Comments History of Present Illness Details Presenting post colpo for follow-up. The patient is doing well with no complaints. The pathology showed the following: A. Cervix, 1:00 o'clock, biopsy: Acute and chronic cervicitis with reactive epithelial changes; negative for squamous intraepithelial lesion. B. Cervix, 3:00 o'clock, biopsy: Benign endocervical mucosa; no squamous mucosa seen; negative for squamous intraepithelial lesion. C. Cervix, 4:00 o'clock, biopsy: Chronic cervicitis; negative for squamous intraepithelial lesion. D. Cervix, 8:00 o'clock, biopsy: Chronic cervicitis; negative for squamous intraepithelial lesion. E. Cervix, 9:00 o'clock, biopsy: Chronic cervicitis; negative for squamous intraepithelial lesion. F. Cervix, 11 o'clock, biopsy: Acute and chronic cervicitis; negative for squamous intraepithelial lesion. G. Cervix, 12:00 o'clock, biopsy: Chronic cervicitis with moderate chronic inflammation; negative for squamous intraepithelial lesion. H. Endocervix, curettage: Fragments of benign endocervical glands; negative for squamous PFSH Medical History Dysfunctional uterine bleeding Seizures Spina bifida GERD (gastroesophageal reflux disease) Acute depression Hx of migraines Asthma Surgical History Hx of unilateral oophorectomy History of Lizzy-en-Y gastric bypass History of surgery on arm Family History Father DM (diabetes mellitus) Asthma CVD (cardiovascular disease) Mother HTN (hypertension) DM (diabetes mellitus) Asthma CVD (cardiovascular disease) Brother No problems noted. Brother No problems noted. Sister Uterine cancer Sister No problems noted. Social History Alcohol intake: never Patient Tobacco Use Status: Never used Tobacco Sexual orientation: Straight/Heterosexual Gender identity: Female Female Reproductive History Menstrual Age of Menarche: 9 Date of last menstrual period: 01/23/23 Review of Systems Const All systems reviewed & are unremarkable except as noted in HPI and below Reports as per HPI and Reports no additional complaints GI Reports no additional complaints Reports no additional complaints Physical Exam Vital Signs: Last Vital Signs BP 110/66 02/16/23 12:27 BMI result Body Mass Index 33.7 Assessment & Plan Assessment & Plan (1) HPV (human papilloma virus) infection: Code(s): B97.7 - Papillomavirus as the cause of diseases classified elsewhere Plan: Discussed with the patient the pathology results of the colposcopy biopsies & endocervical curettage ( negative). Discussed with the patient the sensitivity specificity, positive and negative predictive value in detecting cervical cancer in addition discussed the regression, persistence and progression rates. Recommended co-testing in 12 months, if cytology and or HPV are abnormal will proceed was colposcopy biopsy and endocervical curettage. Instructions given to the patient to schedule a co test appointment in 1 year. All questions answered the patient verbalized understanding. Coding Level of Care Code Est Pt Level 3 (79998) Diagnoses HPV (human papilloma virus) infection B97.7
[2023-02-16 12:27] VITALS: BP 110/66; BMI 33.7
== END 2023-02-16 12:39 | disposition home or self-care (01) ==
LOC: HO.HWS 12:24
PROVIDERS: PCP Internal Medicine Geriatric Medicine; Visit Provider Obstetrics & Gynecology
DX: R87.810 Cervical high risk human papillomavirus (HPV) DNA test positive (principal)
CPT/HCPCS: 99213

== ENCOUNTER → 2023-02-16 12:24 | Outpatient (BNVA) | payer OTHER, SELFPAY | PROVIDERS: PCP Internal Medicine Geriatric Medicine; Visit Provider Obstetrics & Gynecology | DX: N93.9 Abnormal uterine and vaginal bleeding, unspecified (principal); B97.7 Papillomavirus as the cause of diseases classified elsewhere; Z90.721 Acquired absence of ovaries, unilateral; Z80.49 Family history of malignant neoplasm of other genital organs | CPT/HCPCS: 99212 ==

== ENCOUNTER 2023-02-17 09:04 | Outpatient (REF) | payer OTHER, SELFPAY ==
[2023-02-17 11:50] LABS: Cholesterol 188 mg/dL (<200); HDL Cholesterol 55 mg/dL (>40); LDL Cholesterol Calculated 122 mg/dL (<100); Triglycerides 56 mg/dL (<150)
== END 2023-02-17 09:05 | disposition home or self-care (01) ==
LOC: HO.HHCL 09:04
PROVIDERS: Visit Provider Internal Medicine Geriatric Medicine
DX: Z13.220 Encounter for screening for lipoid disorders (principal)
CPT/HCPCS: 36415; 80061

== ENCOUNTER 2023-07-13 10:36 | Outpatient (AMB) | payer OTHER, SELFPAY ==
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
[2023-07-13 10:45] VITALS: BP 124/62; PULSE 60; O2SAT 99; BMI 36.3
== END 2023-07-13 11:13 | disposition home or self-care (01) ==
PROVIDERS: PCP Internal Medicine Geriatric Medicine; Visit Provider Student in an Organized Health Care Education/Training Program
DX: M47.812 Spondylosis without myelopathy or radiculopathy, cervical region (principal); Z51.81 Encounter for therapeutic drug level monitoring; M47.816 Spondylosis without myelopathy or radiculopathy, lumbar region
CPT/HCPCS: 99213

== ENCOUNTER → 2023-07-13 10:36 | Outpatient (BNVA) | payer OTHER, SELFPAY | PROVIDERS: PCP Internal Medicine Geriatric Medicine; Visit Provider Student in an Organized Health Care Education/Training Program | DX: M47.812 Spondylosis without myelopathy or radiculopathy, cervical region (principal); M47.816 Spondylosis without myelopathy or radiculopathy, lumbar region; Z51.81 Encounter for therapeutic drug level monitoring | CPT/HCPCS: 99212 ==

== ENCOUNTER 2024-02-15 08:43 | Outpatient (AMB) | payer OTHER, SELFPAY ==
--- NOTE | 2024-02-15 08:56 | A.OFFVIS_ITS ---
Vital Signs 02/15/24 08:59 Height 5 ft 1 in Weight 187 lb BMI 35.3 BP 90/60 Intake Visit Reasons: annual/do not reschedule Intake Note: Patient states on day 3 severe cramps and heavy bleeding. Allergies iodine [Iodine] Allergy (Severe, Verified 02/15/24 08:58) ANAPHYLAXIS norethandrolone [NORETHANDROLONE] Allergy (Severe, Verified 02/15/24 08:58) TRIGGERS MIGRAINES Penicillins [PENICILLINS] Allergy (Severe, Verified 02/15/24 08:58) SWELLING/RASH cyclobenzaprine [CYCLOBENZAPRINE] Allergy (Intermediate, Verified 02/15/24 08:58) H/A,PALPITATIONS latex [LATEX] Allergy (Intermediate, Verified 02/15/24 08:58) HIVES,ITCHING red dye Allergy (Verified 02/15/24 08:58) rash lactose Adverse Reaction (Verified 02/15/24 08:58) Unknown Pt state s no known food Aller Allergy (Unknown, Uncoded 07/13/23 10:46) Unknown blue dye Allergy (Uncoded 07/13/23 10:46) Rash Is last menstrual period known: Yes (Currently on day 1 of menstrual) Last menstrual period: 02/15/24 HPI Comments Details: Presenting for annual exam. Complaining of heavy menstrual cycles associated with passage of blood clots and pelvic cramping Last Pap/HPV was negative/HPV E6 E7 positive, colpo/biopsy/ECC was negative Last Mammogram was BI-RADS 1 in 01/26 [facility] Medical History HPV (human papilloma virus) infection Dysfunctional uterine bleeding Seizures Spina bifida GERD (gastroesophageal reflux disease) Acute depression Hx of migraines Asthma Surgical History Hx of unilateral oophorectomy History of Lizzy-en-Y gastric bypass History of surgery on arm Family History Father DM (diabetes mellitus) Asthma CVD (cardiovascular disease) Mother HTN (hypertension) DM (diabetes mellitus) Asthma CVD (cardiovascular disease) Brother No problems noted. Brother No problems noted. Sister Uterine cancer Sister No problems noted. Social History Alcohol intake: never Patient Tobacco Use Status: Never used Tobacco Sexual orientation: Straight/Heterosexual Gender identity: Female Female Reproductive History Menstrual Age of Menarche: 9 Date of last menstrual period: 02/15/24 Review of Systems Const All systems reviewed & are unremarkable except as noted in HPI and below Card Reports as per HPI Resp Reports as per HPI GI Reports as per HPI and Reports no additional complaints Reports as per HPI Physical Exam Const General: cooperative, healthy appearing and comfortable Chest Chest palpation & inspection: normal inspection of the chest and normal palpation of entire chest wall Breast/axilla inspection: normal inspection of the breasts and normal inspection of the axillae Breast/axilla palpation: normal palpation of the breasts, normal palpation of the axillae and no axillary lymphadenopathy Resp Effort & Inspection: normal respiratory effort Auscultation: clear to auscultation bilaterally Percussion: percussion normal Cardio Palpation: normal PMI Rate: regular rate Rhythm: regular rhythm Heart sounds: no murmurs and no rubs Peripheral pulses: Peripheral pulses 2+ throughout GI Inspection: Yes normal to inspection Palpation (GI): Soft to palpation, nontender, no guarding, not rigid and No hepatosplenomegaly present Percussion: Yes normal to percussion Auscultation: normal bowel sounds Rectal Exam - Female: deferred General: Yes bladder normal to palpation External Female Exam: No lesion Speculum Exam - Vagina: normal appearance of the vagina, normal palpation, normal vaginal discharge and not erythematous Speculum Exam - Cervix: normal appearance of the cervix and normal palpation Bimanual exam- vagina & uterus: normal bimanual exam, normal palpation, uterine size normal, bladder normal to palpation, consistency normal and normal palpation Bimanual Exam- Adnexa, other: normal adnexae, no masses and no tenderness Assessment & Plan Assessment & Plan (1) Well woman exam: Code(s): Z01.419 - Encounter for gynecological examination (general) (routine) without abnormal findings Category: Medical Plan: Cotesting done. Screening mammogram ordered Counseled the patient about the recommended dietary allowance of 1000 mg of Calcium & 600 IU of vitamin D. The patient was instructed to perform monthly self-breast exams and to schedule an annual exam in a year; All questions answered and the patient verbalized understanding. Instructed the patient to schedule annual exam in a year (2) Abnormal uterine bleeding (AUB): Code(s): N93.9 - Abnormal uterine and vaginal bleeding, unspecified Category: Medical Plan: Screening mammogram, Co testing done, GC and chlamydia taken CBC, TSH, prolactin, HCG, and pelvic ultrasound ordered. Discussed with the patient the different causes of abnormal bleeding including thyroid disorders, uterine and ovarian pathology, endometrial hyperplasia, carcinoma and other potential causes. Discussed with the patient the work up including CBC (to r/o anemia), TSH, prolactin, pelvic Ultrasound, endometrial biopsy to r/o endometrial pathology. All questions answered and the patient verbalized understanding. Instructed the patient to schedule an appointment for an endometrial biopsy in 2 weeks. Orders: Orders MM tomosynthesis screening BI Today Z12.31 - Encounter for screening mammogram for malignant neoplasm of breast Complete Blood Count no Diff Today N93.9 - Abnormal uterine and vaginal bleeding, unspecified US pelvic and transvaginal Today N93.9 - Abnormal uterine and vaginal bleeding, unspecified HCG Quantitative Today N93.9 - Abnormal uterine and vaginal bleeding, unspecified Prolactin Today N93.9 - Abnormal uterine and vaginal bleeding, unspecified TSH reflex Free T4 Today N93.9 - Abnormal uterine and vaginal bleeding, unspecified Coding Level of Care Code Est Pt Prev Care 40-64y(93109) Diagnoses Well woman exam Z01.419 Abnormal uterine bleeding (AUB) N93.9
[2024-02-15 08:59] VITALS: BP 90/60; BMI 35.3
== END 2024-02-15 09:28 | disposition home or self-care (01) ==
PROVIDERS: PCP Internal Medicine Geriatric Medicine; Visit Provider Obstetrics & Gynecology
DX: Z01.419 Encounter for gynecological examination (general) (routine) without abnormal findings (principal); N93.9 Abnormal uterine and vaginal bleeding, unspecified
CPT/HCPCS: 99396

== ENCOUNTER 2024-02-15 08:43 | Outpatient (REF) | payer OTHER, SELFPAY ==
[2024-02-15 10:58] LABS: Hematocrit 34.5 % (37.0-47.0); Hemoglobin 10.8 g/dl (12.0-16.0); Mean Corpuscular HGB Conc 31.3 g/dl (31.0-35.0); Mean Corpuscular Hemoglobin 26.7 pg (27.0-33.0); Mean Corpuscular Volume 85.2 fL (80.0-98.0); Platelet Count 307 X10*3/uL (160-400); Red Blood Count 4.05 X10*6/uL (4.20-5.50); Red Cell Distribution Width 15.9 % (11.0-16.0); White Blood Count 3.7 X10*3/uL (4.8-10.8)
[2024-02-15 11:08] LABS: HPV 16,18/45 See PAP report
[2024-02-15 12:04] LABS: HCG Quantitative < 2 mIU/mL; TSH reflex Free T4 1.28 uIU/mL (0.32-4.0)
[2024-02-15 17:54] LABS: CT PCR NOT DETECTED (Not Detect.); NG PCR NOT DETECTED (Not Detect.)
[2024-02-16 07:34] LABS: Prolactin 10.7 ng/mL
== END 2024-02-15 08:44 | disposition home or self-care (01) ==
LOC: HO.LNP 08:43
PROVIDERS: PCP Internal Medicine Geriatric Medicine; Visit Provider Obstetrics & Gynecology
DX: Z01.419 Encounter for gynecological examination (general) (routine) without abnormal findings (principal); Z12.31 Encounter for screening mammogram for malignant neoplasm of breast; N93.9 Abnormal uterine and vaginal bleeding, unspecified; B97.7 Papillomavirus as the cause of diseases classified elsewhere
CPT/HCPCS: 84146; 84443; 84702; 85027; 87491; 87591; 87624; 88175; 99396

== ENCOUNTER 2024-02-15 09:33 | Outpatient (REF) | payer OTHER, SELFPAY | END 2024-02-15 09:34 | disposition home or self-care (01) | LOC: HO.LAB 09:33 | PROVIDERS: PCP Internal Medicine Geriatric Medicine; Visit Provider Obstetrics & Gynecology | DX: Z13.89 Encounter for screening for other disorder (principal) ==

== ENCOUNTER 2024-02-22 12:00 | Outpatient (REF) | payer OTHER, SELFPAY | END 2024-02-22 12:01 | disposition home or self-care (01) | LOC: HO.US 12:00 | PROVIDERS: PCP Internal Medicine Geriatric Medicine; Visit Provider Obstetrics & Gynecology | DX: N93.9 Abnormal uterine and vaginal bleeding, unspecified (principal) | CPT/HCPCS: 76830; 76856 ==

== ENCOUNTER 2024-03-07 14:38 | Outpatient (RCR) | payer OTHER, SELFPAY | END 2024-04-07 09:38 | disposition home or self-care (01) | LOC: HO.PT 14:38 | PROVIDERS: PCP Internal Medicine Geriatric Medicine; Visit Provider Internal Medicine Geriatric Medicine | DX: Q05.9 Spina bifida, unspecified (principal); R25.2 Cramp and spasm; Z91.81 History of falling | CPT/HCPCS: 97110; 97162 ==

== ENCOUNTER 2024-04-11 10:43 | Outpatient (REF) | payer OTHER, SELFPAY ==
--- NOTE | ~2024-04-11 | MM_ITS ---
EXAMINATION: MM SCREENING DIGITAL BREAST TOMOSYNTHESIS, BILATERAL CLINICAL INFORMATION: Screening. Asymptomatic. COMPARISON: Mammography: Comparison is made with available priors TECHNIQUE: Digital breast mammography with tomosynthesis is performed in both the craniocaudal and mediolateral oblique views along with computer-aided detection (CAD). FINDINGS: There are scattered areas of fibroglandular density (ACR BI-RADS breast composition Category b). There are no significant masses, abnormal calcifications, or other abnormalities. MM/MM tomosynthesis screening BI IMPRESSION: No mammographic evidence of malignancy. ASSESSMENT: BI-RADS BI-RADS 1 - Negative RECOMMENDATION: Routine annual mammography screening. 1 year F/U This examination should not preclude the clinical evaluation of a suspicious palpable abnormality. This patient's information was entered into a reminder system with a target due date for their next mammogram. Electronically signed by: Haleigh Jacob DO 04/17/2024 05:57 PM PRANAY
--- OUTSIDE RECORDS SUMMARY | 2024-04-11 12:01 | XMS_ITS ---
Author Organization [facility] Address [address] [place] [id number] Care Team Providers Care Cafeteria Supervisor Name Role Phone Name Hayder NOVAK Primary Care Provider Joan Torrez [phone] Curtis Encounters Encounter Location Date Provider Diagnosis [address] [address] 12/02/2022 Joan Grimaldo Plan Of Treatment Next Appt Details Provider Name:Joan grajeda, 12/20/2024 09:00:00 AM, [address] [place], [address], Progress Notes * Cindi VAIL TDOB:[birth year] (43 yo F)Acc No.[id number]:12/02/2022 Progress Note Patient:?Cindi VAIL Provider:?Joan Grimaldo DPM :1980???Age:42 Y???Sex:Female D ate:12/02/2022 Address:[address] [place] [address] [place] [phone] Pcp:Hayder Alvarez MD Subjective: * Chief Complaints: * ???1. Dr Curtis. * Medical History:? Objective: * Vitals:? Assessment: Plan: * Treatment: * Images: * The named appointment provid er may or may not be the originator of this progress note, and it is not deemed complete until electronically signed by the appointment provider. Sign off status: Pending * Provider:?Joan Grimaldo DPM Date:? Generated for Mindy yip/Christiano/Martin on:?04/11/2024 12:01 PM EST
--- OUTSIDE RECORDS SUMMARY | 2024-04-11 12:01 | XMS_ITS ---
Author Organization [facility] Address [address] [place] [address] Care Team Providers Care Anaesthesiologist Name Role Phone Name Hayder NOVAK Primary Care Provider Joan Torrez Unavailable [phone] Allergies Allergen (clinical drug ingredient) Drug/Non Drug Allergy documented on EMR Reaction Allergy Type Onset Date Status cyclobenzaprine Cyclobenzaprine Unknown Drug Allergy Active Iodine Unknown Drug Allergy Active Latex Latex Unknown Allergy Active norethindrone Norethindrone Unknown Drug Allergy Active Penicillin Unknown Drug Allergy Active REASON FOR VISIT PCP - 07/2022, Pt states last pcp visit 07/2021, Painful Toe(s) Medications Medication SIG (Take, Route, Frequency, Duration) Notes Start Date End Date Status Multi Max Unknown Docusate Sodium 100 MG 1 capsule as need ed Orally Once a day for 30 day(s) Unknown Flovent HFA 110 MCG/ACT 2 puffs Inhalati on Twice a day Unknown Iron Combinations - as directed Orally Unknown Loratadine 10 MG 1 tablet Orally Once a day for 30 day(s) Unknown Vitamin D3 25 MCG (1000 UT) 1 capsule Or ally Once a day for 30 day(s) Active Vitron-C Active Zolpidem Tartrate 10 MG 1 tablet at bedt joey as needed Orally Once a day Active AFO-fixed . 1 . Wear daily to le ft foot 08/12/2022 Active Dicyclomine HCl 20 MG 1 tablet Orally Th ree times a day for 30 day(s) Unknown Ventolin HFA Active Vitamin A Active Albuterol Active QUEtiapine Fumarate 25 MG 1 tablet at be dtime Orally Once a day for 30 day(s) Active traMADol HCl 50 MG 1 tablet as needed Orally Once a day Active Social History Tobacco Use: Social History Observation Description Date Details (start date - stop date) Never Smoker NA - NA Tobacco Use/Smoking Question Answer Notes Are you a: nonsmoker Additional Findings: Tobacco Non-User Current no n-smoker Alcohol Screen Question Answer Notes Did you have a drink containing alcohol in the p ast year? No Points 0 Interpretation Negative Tobacco use other than smoking: Question Answer Notes Are you an other tobacco user? No Vital Signs Height 5ft 1in in 12/16/2022 Weight 170 lbs 12/16/2022 BMI 32.12 kg/m2 12/16/2022 Encounters Encounter Location Date Provider Diagnosis [facility] [address] [place] [address] 12/16/2022 Joan Grimaldo Spina bifida, unspecified hydrocephalus presence, unspecified spinal region Q05.9 ; Equinus contracture of left ankle M24.572 ; Hammer toe of left foot M20.42 ; Gait abnormality R26.9 and Contracture, left foot M24.575 Assessments Encounter Date Diagnosis (ICD Code) Assessment Notes Treatment Notes Treatment Clinical Notes Section Notes 12/16/2022 Spina bifida, unspecified hydrocephalus presence, unspecified spinal region (ICD-10 - Q05.9) 12/16/2022 Equinus contracture of left ankle (ICD-10 - M24.572) 12/16/2022 Hammer toe of left foot (ICD-10 - M20.42) 12/16/2022 Gait abnormality (ICD-10 - R26.9) 12/16/2022 Contracture, left foot (ICD-10 - M24.575) Plan Of Treatment Next Appt Details Follow Up: 1 Year, Reason: Provider Name:Joan grajeda, 12/20/2024 09:00:00 AM, [address] [place], [address], Progress Notes * Cindi VAIL TDOB:[birth year] (42 yo F)Acc No.[id number]:12/16/2022 Progress Note Patient:?Cindi Vail T Provider:?Joan Grimaldo DPM :1980???Age:42 Y???Sex:Female D ate:12/16/2022 Address:[address] [place] [address] [address], [id number] Pcp:Hayder Alvarez MD Subjective: * Chief Complaints: * ???PCP - t states la st pcp visit ainful Toe(s) * HPI: ???Toe pain:?Nature:?tenderness, contracture, difficulty walking.?Location:?2-5 Left foot.?Duration:?since .?Onset/Cause:?spina bifida.?Course:?improved , at 50? percent.?Aggrevated by:?shoes, any pressure , standing/walking.?Treatments:?change in shoes, braces as a kid, physical therapy, new AFO.? * ROS:?General/Constitutional:?Nausea?denies, denies.?Vomiting?denies, denies.?Hunger Thirst?denies, denies.?Loss appetite?denies, denies.?Chills?denies, denies.?Fatigue?denies, denies.?Fever?denies, denies.?Night Sweats denies, denies.?Unexplained weight loss?denies, denies.?Unexplained weight gain?denies, denies.?HEENTM:?Dentures?denies, denies.?Dizziness?denies, denies.?Glasses/contacts?admits, admits.?Retinopathy?denies, denies.?Blurred/double vision?denies, denies.?TMJ?denies, denies.?Discharge/drainage?denies, denies.?Implants?denies, denies.?Sore throat?denies, denies.?Dental implants?denies, denies.?Hard of hearing ?denies, denies.?Difficulty chewing/swallowing/speaking?denies, denies.?Nose bleeds?denies, denies.?Sore mouth?denies, denies.?Respiratory:?On Oxygen?denies, denies.?Pneumonia/pleurisy?denies, denies.?Bronchitis?denies, denies.?Emphysema?denies, denies.?Coughing?denies, denies.?Cough blood?denies, denies.?Shortness of breath?admits, admits.?Wheezing?admits, admits.?Cardiovascular:?Pacemaker?denies, denies.?MVP?denies, denies.?WPW?denies, denies.?CHF?denies, denies.?Heart attack?denies, denies.?Septal defect?denies, denies.?Rapid beat?denies, denies.?Chest pain ?denies, denies.?Atrial Fib.?denies, denies.?Murmur/Palpitations?denies, denies.?Gastrointestinal:?Hemorrhoids?denies, denies.?Stomach/Abdominal pain?denies, denies.?Dark blood stool?denies, denies.?Irritable bowel ?denies, denies.?Constipation?denies, denies.?Diarrhea?denies, denies.?Hematology:?Swelling?denies, denies.?Clots?denies, denies.?Varicose Veins?denies, denies.?Bruising?denies, denies.?Bleeding problem?denies, denies.?Genitourinary:?Blood urine?denies, denies.?Frequent/Painfu/urination/bladder control?denies, denies.?Kidney stones?denies, denies.?Infection (UTI)?denies, denies.?Nephropathy?denies, denies.?sex trans dis (STD)?denies, denies.?Prostate?denies, denies.?Musculoskeletal:?Hammertoes?denies, denies.?Bunions?denies, denies.?Back Pain?admits, admits.?Muscle Cramps/ Resting?admits, admits.?Muscle cramps / walking?admits, admits.?Generalized aches and pains?denies, denies.?Weakness?denies, denies.?Integ.:?Florentino?denies, denies.?Scars?denies, denies.?Corns/calluses?denies, denies.?Ingrown nails?denies, denies.?Painful nails?denies, denies.?Open Sores?denies, denies.?Rashes?denies, denies.?Neurologic:?Difficulty sleeping?admits, admits.?Brain disorder?denies, denies.?Numbness?admits, admits.?Balance trouble?admits, admits.?Confusion?denies, denies.?Fainting/blackouts?admits, admits.?Tingling?denies, denies.?Tremors?denies, denies.? * Medical History:? * Surgical History:?gastric by pass arm * Hospitalization/Major Diagno stic Procedure:?Denies Past Hospitalization * Family History:?Mother: aliv e, asthma, hypertension, cardiovascular, foot problems, diagnosed with Unspecified essential hypertension, Other specified conditions influencing health status, Family history of arthritis, Diabetic - NIDDM.?Father: alive, cardiovascular, asthma, foot problems, diagnosed with Family history of arthritis, Diabetic - NIDDM, Unspecified essential hypertension, Other specified conditions influencing health status.? * Social History:?Tobacco Use:?Tobacco Use/Smoking?Are you a:?nonsmoker ?Additional Findings: Tobacco Non-User?Current non-smoker ?Tobacco use other than smoking?Are you an other tobacco user??No ???Drugs/Alcohol:?Drugs?Have you used drugs other than those for medical reasons in the past 12 months??No ?Alcohol Screen?Did you have a drink containing alcohol in the past year??No ?Points?0 ?Interpretation?Negative ???Miscellaneous:?Caffeine: yes, frequency:, 1-2 cups per day. ?no Children. ?Exercise: yes, walking. ?Marital status: . ?Occupation: disabled. * Medications:?TakingAlbuterol QUEtiapine Fumarate 25 MG Tablet 1 tablet at bedtime Orally Once a daytraMADol HCl 50 MG Tablet 1 tablet as needed Orally Once a dayVentolin HFA Vitamin A Vitamin D3 25 MCG (1000 UT) Capsule 1 capsule Orally Once a dayVitron-C Zolpidem Tartrate 10 MG Tablet 1 tablet at bedtime as needed Orally Once a dayAFO-fixed . Ankle-Foot Orthotic 1 . Wear daily to left footTaking Albuterol Taking QUEtiapine Fumarate 25 MG Tablet 1 tablet at bedtime Orally Once a dayTaking traMADol HCl 50 MG Tablet 1 tablet as needed Orally Once a dayTaking Ventolin HFA Taking Vitamin A Taking Vitamin D3 25 MCG (1000 UT) Capsule 1 capsule Orally Once a dayTaking Vitron-C Taking Zolpidem Tartrate 10 MG Tablet 1 tablet at bedtime as needed Orally Once a dayTaking AFO-fixed . Ankle-Foot Orthotic 1 . Wear daily to left footUnknownDicyclomine HCl 20 MG Tablet 1 tablet Orally Three times a dayDocusate Sodium 100 MG Capsule 1 capsule as needed Orally Once a dayFlovent HFA 110 MCG/ACT Aerosol 2 puffs Inhalation Twice a dayIron Combinations - Tablet as directed Orally Loratadine 10 MG Tablet 1 tablet Orally Once a dayMulti Max Medication List reviewed and reconciled with the patientUnknown Dicyclomine HCl 20 MG Tablet 1 tablet Orally Three times a dayUnknown Docusate Sodium 100 MG Capsule 1 capsule as needed Orally Once a dayUnknown Flovent HFA 110 MCG/ACT Aerosol 2 puffs Inhalation Twice a dayUnknown Iron Combinations - Tablet as directed Orally Unknown Loratadine 10 MG Tablet 1 tablet Orally Once a dayUnknown Multi Max Medication List reviewed and reconciled with the patient * Allergies:?CyclobenzaprineIo dineLatexNorethindronePenicillinyes[Allergies Verified] Objective: * Vitals:?Ht: 5ft 1in, Wt:170, BMI:32.12, Shoe size: 7.75, Ht-cm: 154.94 cm, Wt- k.11 kg. * Examination: ???General Examination: ?GENERAL APPEARANCE:?Reveals a pleasant, alert, well-nourished, well- developed, well hydrated individual, who demonstrates proper attention to hygiene/body habitus, and is in no acute distress, Pt serves as own?historian for office visit today.?ORIENTED:?person, place, and time.?Neurological: ?SENSORY:?Neurological exam reveals intact sensorium, pain sensation normal, vibration sensation intact, pinprick sensation is normal in the lower extremities, Pt denies, anesthesia, burning, paresthesia, tingling, B/L.?Vascular: ?DP PULSES:?3/4, B/L.?PT PULSES:?3/4, B/L.?CAPILLARY FILL TIME:?immediate, all digits, B/L.?SKIN TEMPERTURE GRADIENT OF THE LOWER EXTERMITIES:?warm to cool, proximal to distal, B/L.?HAIR GROWTH/TEXTURE/ELASTICITY/TURGOR:?normal, B/L.?PIGMENTATION:?normal, B/L.?EDEMA:?absent, B/L.?Dermatologic: ?SKIN FINDINGS:?Skin exam reveals normal texture, elasticity, and turgor. There are no masses. The interspaces are clear.?Orthopedic: ?MUSCLE STRENGTH:?Decreased with DF , Left.?GAIT ABNORMALITY:?antalgic , unstable.?FOOT MORPHOLOGY:?Decreased Ankle joint dorsiflexion ROM, knee flexed , Decreased Ankle joint dorsiflexion ROM, knee extended , LEFT.?DIGITAL DEFORMITIES:?Digital contracture, PIPJ, 2-5 Left , incompl- reducible with WB, or to push-up test, no over, nor underlapping , MPJ Contracture/Dorsal subluxation , 2-5 Left.?FOOTWEAR:?good condition, exhibit proper fit and accommodation for pedal deformities. AFO was??inspected and noted to be worn, but in good condition giving proper support at the present time.? Assessment: * Assessment: 1.?Equinus contracture of le ft ankle - M24.572 (Primary), Chronic problem, Stable (1=3,2=4)?2.?Spina bifida, unspecified hydrocephalus presence, unspecified spinal region - Q05.9?3.?Hammer toe of left foot - M20.42, Chronic problem, Stable (1=3,2=4)?4.?Gait abnormality - R26.9?5.?Contracture, left foot - M24.575? Plan: * Treatment: * Procedure Codes:? * Preventive Medicine:? ??Counseling:?Discussion:?-14: Office or other outpatient visit for the evaluation and management of an established patient, which required a medically appropriate history and/or examination and MODERATE level of DECISION MAKING for: 1 OR MORE CHRONIC PROBLEM(S) THATS WORSENING, 2 STABLE CHRONIC PROBLEMS, A NEWLY DIAGNOSED PROBLEM WITH UNCERTAIN PROGNOSIS, AN ACUTE COMPLICATED INJURY WITH MULTIPLE TREATMENT OPTIONS, OR AN ACUTE PROBLEM WITH ACCOMPANYING SYSTEMIC SYMPTOMS, THAT POSE(S) A MODERATE RISK OF MORBIDITY. THIS CONDITION MAY ALSO INCLUDE RX DRUG MANAGEMENT, OR A DECISON FOR MINOR SURGERY. The visit on the day of the encounter encompassed interpreting the data and educating the patient as to the nature of their condition, treatment options available according to their individual PMH, meds, allergies, and overall health/living conditions, as well as any potential risks or complications that may occur from a failure to adhere to, and participate in, the recommended course of therapy. The discussion included a complete verbal, and/or written explanation of the examination results, any x-rays taken, the proposed diagnosis, and outline of the treatment plan. A schedule for future care needs was also explained. The patient verbalized an understanding of the instructions at this time and agreed to be an active participant in their treatment. If the patient should think of any questions or concerns after the visit, I have encouraged the patient to call the office.?BioMech.:?I discussed the Pts foot biomechanics with them and how it relates to their problem, recommend AFO brace left foot/leg to help with gait and decrease fall.?Digital Treatment:?I explained to the patient the possible etiologies of Hammertoes, including genetics/foot type/shoegear/activity level/exercise routine and the risks/benefits of all the different treatment options for pain including: No treatment at all, Rest, Ice, New/supportive/wider/deeper Shoegear, Digital Padding/Strapping/Taping/Bracing/Gel protective sleeves, Foot/Ankle AFO Bracing, Stretching exercises, Deep Tissue Massage, Arch support/shoe inserts with splay metatarsal padding, and Custom orthoses. I insisted that any digital devices be removed daily and not worn overnight for safety. The patient is to carefully examine the toes daily for any skin irritation while using any splinting or padding device. The advantages and disadvantages of each option were discussed and the patients questions re: shoegear, padding, custom vs prefabricated inserts, activity level, and consistency in home treatment regimens for optimal success were answered to their verbally confirmed satisfaction.?Podiatric Counseling:?I explained the etiology of the patient's podiatric pathology and the usual treatment plan. The patient was made aware of the adverse risks and sequelae associated with their medical condition(s) and the treatment necessary to avoid those complications..? * Follow Up:?1 Year * Images: * Sign off status: Completed true * Provider:?Joan Grimaldo DPM Date:?03/2023 Generated for Mindy yip/Christiano/Martin on:?04/11/2024 12:00 PM EST History and Physical Notes * HPI (History of Present Illness) Category Sub-Category Detail Notes Category Not es Toe pain Nature: tenderness, contracture, dif ficulty walking Location: 2-5 Left foot Duration: since Onset/Cause: spina bifida Course: improved , at 50 per cent Aggravated by: shoes, any pressure , standing/walking Treatments: change in shoes, bra lopez as a kid, physical therapy, new AFO Examination Category Sub-Category Detail Notes Category Not es Neurological SENSORY: Neurological exa m reveals intact sensorium, pain sensation normal, vibration sensation intact, pinprick sensation is normal in the lower extremities, Pt denies, anesthesia, burning, paresthesia, tingling, B/L Dermatologic SKIN FINDINGS: Skin exam reveal s normal texture, elasticity, and turgor. There are no masses. The interspaces are clear Orthopedic GAIT ABNORMALITY: antalgic , unstable FOOT MORPHOLOGY: Decreased Ankle join t dorsiflexion ROM, knee flexed , Decreased Ankle joint dorsiflexion ROM, knee extended , LEFT FOOTWEAR: good condition, exhi bit proper fit and accommodation for pedal deformities. AFO was inspected and noted to be worn, but in good condition giving proper support at the present time DIGITAL DEFORMITIES: Digital contracture , PIPJ, 2-5 Left , incompl-reducible with WB, or to push-up test, no over, nor underlapping , MPJ Contracture/Dorsal subluxation , 2-5 Left MUSCLE STRENGTH: Decreased with DF , Left General Examination GENERAL APPEARANCE: Reveals a pleasant, alert, well- nourished, well-developed, well hydrated individual, who demonstrates proper attention to hygiene/body habitus, and is in no acute distress, Pt serves as own historian for office visit today ORIENTED: person, place, and t joey Vascular DP PULSES (B): 3/4, B/L PT PULSES (B): 3/4, B/L CAPILLARY FILL TIME: immediate, all digi ts, B/L TEMPERTURE GRADIENT (C): warm to cool, p roximal to distal, B/L TROPHIC CONDITION-TEXTURE/ELASTICITY/TURGOR/HAIR GROWTH (B): normal, B/L EDEMA (C): absent, B/L PIGMENTATION: normal, B/L
--- OUTSIDE RECORDS SUMMARY | 2024-04-11 12:01 | XMS_ITS | Patient Health Record ---
[facility] Address [address] [place] [address] Care Team Providers Care Supply Assistant Name Role Phone Name Hayder NOVAK Primary Care Provider Joan Torrez Unavailable [phone] Allergies Allergen (clinical drug ingredient) Drug/Non Drug Allergy documented on EMR Reaction Allergy Type Onset Date Status cyclobenzaprine Cyclobenzaprine Unknown Drug Allergy Active Iodine Unknown Drug Allergy Active Latex Latex Unknown Allergy Active norethindrone Norethindrone Unknown Drug Allergy Active Penicillin Unknown Drug Allergy Active Reason For Referral No Information Medications Medication SIG (Take, Route, Frequency, Duration) Notes Start Date End Date Status Albuterol Active QUEtiapine Fumarate 25 MG 1 tablet at be dtime Orally Once a day for 30 day(s) Active traMADol HCl 50 MG 1 tablet as needed Orally Once a day Active Ventolin HFA Active Vitamin A Active Vitamin D3 25 MCG (1000 UT) 1 capsule Orally Once a day for 30 day(s) Active Vitron-C Active Zolpidem Tartrate 10 MG 1 tablet at bedt joey as needed Orally Once a day Active AFO-fixed . 1 . Wear daily to le ft foot 08/12/2022 Active Dicyclomine HCl 20 MG 1 tablet Orally Th ree times a day for 30 day(s) Not-Taking Docusate Sodium 100 MG 1 capsule as need ed Orally Once a day for 30 day(s) Not-Taking Flovent HFA 110 MCG/ACT 2 puffs Inhalati on Twice a day Unknown Iron Combinations - as directed Orally Not-Taking Loratadine 10 MG 1 tablet Orally Once a day for 30 day(s) Unknown Multi Max Unknown Social History Tobacco Use: Social History Observation [...] Are you an other tobacco user? No Problems Problem Type SNOMED Code ICD Code Onset Dates Problem Status W/U Status Risk Notes Problem [id number] Contracture, lef t foot (M24.575) Active confirmed Problem 944080988 Hammer toe of right foot (M20.41) Active confirmed Problem 382705334 Hammer toe of left foot (M20.42) Active confirmed Problem 45920429 Gait abnormality (R26.9) Active confirmed Problem 635690429 Equinus contracture of left ankle (M24.572) Active confirmed Problem 80385023 Spina bifida, unspecified hydrocephalus presence, unspecified spinal region (Q05.9) Active confirmed Vital Signs Height 5ft1in in 12/15/2023 Weight 175 lbs 12/15/2023 BMI 33.06 kg/m2 12/15/2023 Encounters Encounter Location Date Provider Diagnosis [facility] [address] [place] [address] 12/15/2023 Joan Grimaldo Equinus contracture of left ankle M24.572 ; Contracture, left foot M24.575 ; Spina bifida, unspecified hydrocephalus presence, unspecified spinal region Q05.9 ; Hammer toe of left foot M20.42 and Gait abnormality R26.9 Assessments Encounter Date Diagnosis (ICD Code) Assessment Notes Treatment Notes Treatment Clinical Notes Section Notes 12/15/2023 Contracture, left foot (ICD-10 - M24.575) 12/15/2023 Equinus contracture of left ankle (ICD-10 - M24.572) 12/15/2023 Spina bifida, unspecified hydrocephalus presence, unspecified spinal region (ICD-10 - Q05.9) 12/15/2023 Hammer toe of left foot (ICD-10 - M20.42) 12/15/2023 Gait abnormality (ICD-10 - R26.9) Plan Of Treatment Pending Test Test Name Order Date X ray : Foot, left 3V 08/12/2022 X ray : Foot, right 3V 08/12/2022 Next Appt Details Provider Name:Joan Johann grajeda, 12/20/2024 09:00:00 AM, [address] [place], [address], Insurance Providers Payer Name Payer Address Payer Phone Subscriber Number Group Number Insured Name Patient Relationship to Insured Coverage Start Date Coverage End Date [facility] [employer] Claims [address] [place] [id number] Cindi Murdock Self - patient is the insured Medical (General) History Medical History History ICD Code Anxiety Arthritis asthma Back,Hip,and Knee pain Broken bones covid-19 Macular degeneration Migraines Reflux ( GERD) Seizures Spina bifida uterine bleeding Surgical History Surgery Date(Month/Year) gastric bypass arm
== END 2024-04-11 10:44 | disposition home or self-care (01) ==
LOC: HO.MAMMO 10:43
PROVIDERS: PCP Internal Medicine Geriatric Medicine; Visit Provider Obstetrics & Gynecology
DX: Z12.31 Encounter for screening mammogram for malignant neoplasm of breast (principal)
CPT/HCPCS: 77063; 77067

== ENCOUNTER → 2024-04-11 11:15 | Outpatient (BNV) | payer OTHER, SELFPAY | PROVIDERS: PCP Internal Medicine Geriatric Medicine; Visit Provider Internal Medicine | DX: Z12.31 Encounter for screening mammogram for malignant neoplasm of breast (principal) | CPT/HCPCS: 77063; 77067 ==

== ENCOUNTER 2024-04-18 13:31 | Outpatient (AMB) | payer OTHER, SELFPAY ==
[2024-04-18 13:35] VITALS: BP 112/68; PULSE 62; O2SAT 100; BMI 36.2
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
== END 2024-04-18 13:52 | disposition home or self-care (01) ==
PROVIDERS: PCP Internal Medicine Geriatric Medicine; Visit Provider Student in an Organized Health Care Education/Training Program
DX: M47.812 Spondylosis without myelopathy or radiculopathy, cervical region (principal); M47.816 Spondylosis without myelopathy or radiculopathy, lumbar region
CPT/HCPCS: 99213

== ENCOUNTER → 2024-04-18 13:31 | Outpatient (BNVA) | payer OTHER, SELFPAY | PROVIDERS: PCP Internal Medicine Geriatric Medicine; Visit Provider Student in an Organized Health Care Education/Training Program | DX: M47.812 Spondylosis without myelopathy or radiculopathy, cervical region (principal); M47.816 Spondylosis without myelopathy or radiculopathy, lumbar region | CPT/HCPCS: 99212 ==

== ENCOUNTER 2024-05-27 14:04 | Outpatient (REF) | payer OTHER, SELFPAY ==
--- NOTE | ~2024-05-27 | XR_ITS ---
EXAMINATION: XR THORACIC SPINE CLINICAL INFORMATION: mid back pain on left side COMPARISON: No prior x-ray. Correlated to MRI report dated September 03, 2010. TECHNIQUE: 3 views of the thoracic spine were obtained. FINDINGS: No acute cortical disruption. No gross malalignment. No lytic or blastic lesions. Endplate sclerosis and marginal osteophyte formation in the lower thoracic spine. Vascular clips in the left upper quadrant abdomen. Mild multilevel cervical spondylosis. XR/XR thoracic spine 2V IMPRESSION: Mild multilevel lower thoracic spondylosis. No acute fracture or listhesis. Electronically signed by: Eleazar Deluna MD 05/31/2024 10:00 AM [facility]
--- OUTSIDE RECORDS SUMMARY | 2024-05-27 14:31 | XMS_ITS | Encounter Summary ---
Author Organization [employer] [facility] Address [address] [place] [address] [address] [place] [address] Care Team Providers Care Die Operator Name Role Phone Name, Hayder NOVAK Primary Care Provider [phone] Encounter Details Date Type Department Care Team ([facility] Contact Info) Description 04/29/2022 Orders Only [facility] MED[facility]INE [address] [place] [address] [phone] Rosio Morales LPN Social History Tobacco Use Types Packs/Day Years Used Date Smoking Tobacco: Never Assessed Comments Unknown Sex and Gender Information Value Date Recorded Sex Assigned at Female 02/03/2022 10:18 AM EDT Legal Sex Female 10:18 AM EDT Gender Identity Female 02/03/2022 10:18 AM EDT Sexual Orientation Choose not to disclose 2021 10:18 AM EDT COVID-19 Exposure Response Date Recorded In the last 10 days, have yo u been in contact with someone who was confirmed or suspected to have Coronavirus/COVID-19? No / Unsure 04/11/2022 12:00 PM EST documented as of this encounter Plan of Treatment Upcoming Encounters Date Type Department Care Team (Late st Contact Info) Description 07/19/2024 9:00 AM EDT Office Visit [facility] [address] [place] [address] [phone] Hayder Alvarez MD [address] [place] [address] documented as of this encounter Visit Diagnoses Not on filedocumented in this encounter Care Teams Die Operator Relationship Specialty Start Date End Date Hayder Alvarez MD [address] [place] [address] PCP - General Family Medicine 09/23/19 documented as of this encounter
--- OUTSIDE RECORDS SUMMARY | 2024-05-27 14:31 | XMS_ITS | Encounter Summary ---
Author Organization [employer] Address [address] [facility] 7t [place] [address] Care Team Providers Care Printing Engineer Name Role Phone Name, Hayder NOVAK Primary Care Provider [phone] Reason for Visit * Reason Comments Med Refill Encounter Details Date Type Department Care Team ([facility] st Contact Info) Description 04/03/2023 Refill [facility] [address] [place], [place] [phone] Name, MD Hayder [address] [place] [address] Asthma, unspecified asthma severity, unspecified whether complicated, unspecified whether persistent Social History Tobacco Use Types Packs/Day Years Used Date Smoking Tobacco: Never Smokeless Tobacco: Never Alcohol Use Standard Drinks/Week Comments Never 0 (1 standard drink = 0.6 oz pur e alcohol) Depression Answer Date Recorded Patient Health Questionnaire-9 Score 0 08/26/2022 Housing Stability Answer Date Recorded What is your housing situation today? I have heather dickey 01/19/[address] you li ve. Do you have problems with any of the following? None of the above 01/19/2023 Food Insecurity Answer Date Recorded Within the past 12 months, y ou worried that your food would run out before you got money to buy more: Never True 01/19/2023 Within the past 12 months,th e food you bought just didn't last and you didn't have enough money to get more: Never True Transportation Answer Date Recorded In the past 12 months, has l ack of transportation kept you from medical appts, meetings, work or from getting things needed for daily living? No 01/19/2023 Utilities Answer Date Recorded In the past 12 months, has t he electric, gas, oil or water company threatened to shut off services in your home? No 01/19/2023 Depression Answer Date Recorded Patient Health Questionnaire-2 Score 0 08/26/2022 Comments Unknown Sex and Gender Information Value Date Recorded Sex Assigned at Female 02/03/2022 10:18 AM EDT Legal Sex Female 10:18 AM EDT Gender Identity Female 02/03/2022 10:18 AM EDT Sexual Orientation Choose not to disclose 2021 10:18 AM EDT documented as of this encounter Plan of Treatment Upcoming Encounters Date Type Department Care Team (Late st Contact Info) Description 07/19/2024 9:00 AM EDT Office Visit [facility] [address] [place] [phone] Name, MD Hayder [address] [place] [address] documented as of this encounter Visit Diagnoses Diagnosis Asthma, unspecified asthma severity, unspecified whether complicated, unspecified whether persistent documented in this encounter Additional Health Concerns Assessment Noted Time PHQ-9 Depression Total Score: 0 08/27/19 23 9:25 AM EDT documented as of this encounter Care Teams Printing Engineer Relationship Specialty Start Date End Date NameHayder MD [address] [place] [address] PCP - General Family Medicine 09/23/19 documented as of this encounter
--- OUTSIDE RECORDS SUMMARY | 2024-05-27 14:31 | XMS_ITS | Encounter Summary ---
Author Organization [employer] Address [address] [place] [address] 7[address] [place] [address] Care Team Providers Care Pump Assembler Name Role Phone NameHayder MD Primary Care Provider [phone] Reason for Visit * Reason Onset Date Comments Med Refill Too soon for Ambien Refill 04/29/2022 Refil l Due 05/07/22 Encounter Details Date Type Department Care Team ([facility] Contact Info) Description 04/29/2022 Refill [facility] MEDICINE [address] [place] [id number] Hayder Alvarez MD [address] [place] [address] [phone] Social History Tobacco Use Types Packs/Day Years [...] Encounters Date Type Department Care Team (Late Contact Info) Description 07/19/2024 9:00 AM EDT Office Visit [facility]INE [address] [place] [phone] NameHayder MD [address] [place] [address] documented as of this encounter Visit Diagnoses Not on filedocumented in this encounter Care Teams Pump Assembler Relationship Specialty Start Date End Date Name, MD Hayder [address] [place] [address] PCP - General Family Medicine 09/23/19 documented as of this encounter
--- OUTSIDE RECORDS SUMMARY | 2024-05-27 14:31 | XMS_ITS | Encounter Summary ---
Author Organization [employer] Address [address] [facility] [address]t [place] [address] Care Team Providers Care Obstetrical Anesthesiologist Name Role Phone Name, Hayder NOVAK Primary Care Provider [phone] Reason for Visit * Reason Comments Follow-up Encounter Details Date Type Department Care Team ([facility] st Contact Info) Description 05/04/2024 10:30 AM EST Office Visit [facility]INE [address] [place], [place] [phone] Name, MD Hayder [address] [place] [address] Migraine without aura and without status migrainosus, not intractable (Primary Dx); Chronic neck pain Social History Tobacco Use Types Packs/Day Years Used Date Smoking Tobacco: Never Smokeless Tobacco: Never Tobacco Cessation:Counseling Given: Not Answered Alcohol Use Standard Drinks/Week Comments Never 0 (1 standard drink = 0.6 oz pur e alcohol) Depression Answer Date Recorded Patient Health Questionnaire-9 Score 0 09/22/2023 Patient Health Questionnaire-9 Score 0 09/22/2023 Last PHQ-9: Questionnaire Data Not on file 0 09/22/2023 Housing Stability Answer Date Recorded What is your housing situation today? I have heather dickey 09/22/[address] you li ve. Do you have problems with any of the following? None of the above 09/22/2023 Food Insecurity Answer Date Recorded Within the past 12 months, y ou worried that your food would run out before you got money to buy more: Never True 09/22/2023 Within the past 12 months,th e food you bought just didn't last and you didn't have enough money to get more: Never True Transportation Answer Date Recorded In the past 12 months, has l ack of transportation kept you from medical appts, meetings, work or from getting things needed for daily living? No 09/22/2023 Utilities Answer Date Recorded In the past 12 months, has t he electric, gas, oil or water company threatened to shut off services in your home? No 09/22/2023 Depression Answer Date Recorded Patient Health Questionnaire-2 Score 0 09/22/2023 Internet Access Answer Date Recorded Internet Access Q1 No 12/07/2023 Internet Access Q2 I do not want or need it 05/2023 Comments Unknown Sex and Gender Information Value Date Recorded Sex Assigned at Female 02/03/2022 10:18 AM EDT Legal Sex Female 10:18 AM EDT Gender Identity Female 02/03/2022 10:18 AM EDT Sexual Orientation Choose not to disclose 2021 10:18 AM EDT documented as of this encounter Last Filed Vital Signs Vital Sign Reading Time Taken Comments Blood Pressure 114/77 05/04/2024 10:21 AM EST Pulse 67 05/04/2024 10:21 AM EST Temperature 35.7 ??C (96.3 ??F) 05/04/2024 1 0:21 AM EST Respiratory Rate 21 05/04/2024 10:2 1 AM EST Oxygen Saturation 98% 05/04/2024 10: 21 AM EST Inhaled Oxygen Concentration - - Weight 86.1 kg (189 lb 12.8 oz) 025 10:21 AM EST Height 154.9 cm (5' 1 ) 05/04/2024 10:2 1 AM EST Body Mass Index 35.86 05/04/2024 10:21 AM EST documented in this encounter Progress Notes * Hayder Alvarez MD - 05/04/2024 10:30 AM EST Subjective Patient ID: Cindi Murdock is a 43 y.o. female who presents for Follow-up. Patient comes for a follow-up visit. She complains of migraine headaches. She has recurrent migraines for many years. She has headaches daily. She describes sometimes pressure on the occipital area and sometimes paresthesias of 1 side of the head or the other. She has associated nausea, photophobia, phonophobia and visual scotomas. She uses Tylenol with very little improvement. Currently she is not on any medication for migraine prevention. She does not have a headache during her visit. Review of Systems Constitutional: Negative for chills and fever. HENT: Negative for sore throat. Respiratory: Negative for cough, shortness of breath and wheezing. Cardiovascular: Negative for chest pain, palpitations and leg swelling. Gastrointestinal: Negative for abdominal pain. Musculoskeletal: Positive for back pain and neck pain. Neurological: See HPI Visit Vitals BP 114/77 (BP Location: Left arm, Patient Position: Sitting, BP Cuff Size: Large adult) Pulse 67 Temp 96.3 ??F (35.7 ??C) (Temporal) Resp 21 Ht 5' 1 (1.549 m) Wt 189 lb 12.8 oz (86.1 kg) SpO2 98% BMI 35.86 kg/m?? Smoking Status Never BSA 1.92 m?? Objective Physical Exam Constitutional: Appearance: Normal appearance. Cardiovascular: Rate and Rhythm: Normal rate and regular rhythm. Heart sounds: No murmur heard. No gallop. Pulmonary: Effort: Pulmonary effort is normal. No respiratory distress. Breath sounds: Normal breath sounds. No wheezing. Musculoskeletal: Right lower leg: No edema. Left lower leg: No edema. Neurological: Mental Status: She is alert and oriented to person, place, and time. Mental status is at baseline. Cranial Nerves: No cranial nerve deficit. Assessment/Plan Diagnoses and all orders for this visit: Migraine without aura and without status migrainosus, not intractable Comments: I recommended trial of Topamax for migraine prevention. Imitrex at the onset of the headaches. Follow-up in 2 months. Chronic neck pain Comments: I recommended the patient a trial of acupuncture. I will have my [place] provide her with the information for acupuncture at [facility] Other orders - topiramate (Topamax) 25 MG tablet; Take 1 tablet (25 mg) by mouth 2 times daily. - SUMAtriptan (Imitrex) 25 MG tablet; Take 1 tablet (25 mg) by mouth 1 (one) time if needed for migraine for up to 27 doses. May repeat dose once in 2 hours if no relief. Do not exceed 2 doses in 24 hours. documented in this encounter Plan of Treatment Upcoming Encounters Date Type Department Care Team (Late st Contact Info) Description 07/19/2024 9:00 AM EDT Office Visit [facility] [address] [place] [address] Hayder Alvarez MD [address] [place] [address] documented as of this encounter Visit Diagnoses Diagnosis Migraine without aura and without status migrainosus, not intractable- Primary Chronic neck pain Cervicalgia documented in this encounter Additional Health Concerns Assessment Noted Time PHQ-9 Depression Total Score: 0 09/22/19 24 11:47 AM EDT documented as of this encounter Care Teams Obstetrical Anesthesiologist Relationship Specialty Start Date End Date Hayder Alvarez MD [address] [place] [phone] PCP - General Family Medicine 09/23/19 documented as of this encounter
--- OUTSIDE RECORDS SUMMARY | 2024-05-27 14:31 | XMS_ITS | Encounter Summary ---
Author Organization [employer] Address [address] [facility] [address]t [place] [address] Care Team Providers Care Calender Inspector Name Role Phone Name, Hayder NOVAK Primary Care Provider [phone] Reason for Visit * Reason Onset Date Comments Durable Medical Equipment 05/09/2024 Incont pad Encounter Details Date Type Department Care Team (Late st Contact Info) Description 05/09/2024 Telephone [facility] MEDICINE [address] [place] [address] Name, MD Hayder [address] [place] [address] Durable Medical Equipment (Incont pad) Social History Tobacco Use Types Packs/Day Years [...] AM EDT documented as of this encounter Miscellaneous Notes * Telephone Encounter - Maribell Hutson - 05/11/2024 10:35 AM EST Confirmation of order for inserts/liners signed and faxed to [facility] . Confirmation received and sent to scan. If patient calls to check status on above, please advise them to contact [employer] at [phone]. * Telephone Encounter - Maribell Hutson - 05/09/2024 3:27 PM EST Confirmation of order for Disposable underpads/bedpads from [facility] documented in this encounter Plan of Treatment Upcoming Encounters Date Type Department Care Team (Late st Contact Info) Description 07/19/2024 9:00 AM EDT Office Visit [facility] MEDICINE [address] [place] [address] Name, MD Hayder [address] [place] [address] documented as of this encounter Visit Diagnoses Not on filedocumented in this encounter Additional Health Concerns Assessment Noted Time PHQ-9 Depression Total Score: 0 09/22/19 24 11:47 AM EDT documented as of this encounter Care Teams Calender Inspector Relationship Specialty Start Date End Date Name, MD Hayder [address] [place] [address] PCP - General Family Medicine 09/23/19 documented as of this encounter
--- OUTSIDE RECORDS SUMMARY | 2024-05-27 14:31 | XMS_ITS | Encounter Summary ---
Author Organization [employer] Address [address] [place] [address] [address]t [place] [address] Care Team Providers Care Retail Client Solutions Analyst Name Role Phone Name, Hayder NOVAK Primary Care Provider [phone] Encounter Details Date Type Department Care Team (Latest Contact Info) Description 01/23/2021 Abstract [facility] CONVERSIONS Dental, Provider, DDS Social History Tobacco Use Types Packs/Day Years [...] Description 07/19/2024 9:00 AM EDT Office Visit [facility] MEDICINE [address] [place] [address] NameHayder MD [address] [place] [address] documented as of this encounter Visit Diagnoses Not on filedocumented in this encounter Care Teams Retail Client Solutions Analyst Relationship Specialty Start Date End Date Hayder Alvarez MD [address] [place] [address] PCP - General Family Medicine 09/23/19 documented as of this encounter
--- OUTSIDE RECORDS SUMMARY | 2024-05-27 14:31 | XMS_ITS | Encounter Summary ---
Author Organization [employer] Address [address] [place] [address] [address] [place] [address] Care Team Providers Care Keel Press Operator Name Role Phone Name, Hayder NOVAK Primary Care Provider [phone] Encounter Details Date Type Department Care Team (Late st Contact Info) Description 08/22/2022 Abstract [facility] MEDICINE [address] [place] [phone] NameHayder MD [address] [place] [address] Social History Tobacco Use Types Packs/Day Years Used Date Smoking Tobacco: Never Smokeless Tobacco: Never Alcohol Use Standard Drinks/Week Comments Never 0 (1 standard drink = 0.6 oz pur e alcohol) Depression Answer Date Recorded Patient Health Questionnaire-9 Score 0 08/26/2022 Depression Answer Date Recorded Patient Health Questionnaire-2 [...] Description 07/19/2024 9:00 AM EDT Office Visit [facility] MED[facility]INE [address] [place] [phone] NameHayder MD [address] [place] [address] [phone] documented as of this encounter Visit Diagnoses Not on filedocumented in this encounter Care Teams Keel Press Operator Relationship Specialty Start Date End Date Name, MD Hayder [address] [place] [id number] PCP - General Family Medicine 09/23/19 documented as of this encounter
--- OUTSIDE RECORDS SUMMARY | 2024-05-27 14:31 | XMS_ITS | Encounter Summary ---
Author Organization [employer] Address [address] [facility] 7t [place] [address] Care Team Providers Care Ocean Transportation Intermediary Name Role Phone Name, Hayder NOVAK Primary Care Provider [phone] Reason for Visit * Reason Comments Med Refill Encounter Details Date Type Department Care Team ([facility] st Contact Info) Description 08/11/2022 Refill [facility] [address] [place] [address] Name, MD Hayder [address] [place] [address] Anxiety; Insomnia, unspecified type Social History Tobacco Use Types Packs/Day Years Used Date Smoking Tobacco: Never Smokeless Tobacco: Never Alcohol Use Standard Drinks/Week Comments Never 0 (1 standard drink = 0.6 oz pur e alcohol) Comments Unknown Sex and Gender Information Value Date Recorded Sex Assigned at Female 02/03/2022 10:18 AM EDT Legal Sex Female 10:18 AM EDT Gender Identity Female 02/03/2022 10:18 AM EDT Sexual Orientation Choose not to disclose 2021 10:18 AM EDT documented as of this encounter Miscellaneous Notes * Telephone Encounter - Amaya Abebe - 08/22/2022 11:58 AM EDT This pt had a pap done 06/17/21 by Aram Hogan and I am trying to update her care cap but I do not see when Dr. Hogan is requesting to see pt again. Are you able to find that out for me? documented in this encounter Plan of Treatment Upcoming Encounters Date Type Department Care Team (Late st Contact Info) Description 07/19/2024 9:00 AM EDT Office Visit [facility] [address] [place] [address] Name, MD Hayder [address] [place] [address] documented as of this encounter Visit Diagnoses Diagnosis Anxiety Anxiety state, unspecified Insomnia, unspecified type documented in this encounter Care Teams Ocean [employer] Intermediary Relationship Specialty Start Date End Date Name, MD Hayder [address] [place] [address] PCP - General Family Medicine 09/23/19 documented as of this encounter
--- OUTSIDE RECORDS SUMMARY | 2024-05-27 14:31 | XMS_ITS | Encounter Summary ---
Author Organization [employer] Address [address] [place] [address] 7t [place] [address] Care Team Providers Care Medical Radiation Dosimetrist Name Role Phone Name, Hayder NOVAK Primary Care Provider [phone] Encounter Details Date Type Department Care Team (Latest Contact Info) Description 09/10/2018 Abstract [facility] CON[facility] Dental, Provider, DDS Social History [...] Description 07/19/2024 9:00 AM EDT Office Visit [facility] [address] [place] [address] NameHayder MD [address] [place] [address] documented as of this encounter Visit Diagnoses Not on filedocumented in this encounter Care Teams Medical Radiation Dosimetrist Relationship Specialty Start Date End Date Hayder Alvarez MD [address] [place] [address] PCP - General Family Medicine 09/23/19 documented as of this encounter
--- OUTSIDE RECORDS SUMMARY | 2024-05-27 14:31 | XMS_ITS | Encounter Summary ---
Author Organization [employer] Address [address] [facility] 7t [place] [address] Care Team Providers Care Maintenance Shop Welder Name Role Phone Name, Hayder NOVAK Primary Care Provider [phone] Encounter Details Date Type Department Care Team ([facility] Contact Info) Description 08/25/2022 Abstract [facility] [address] [place], [place] [phone] Name, MD Hayder [address] [place] [address] Social History Tobacco Use Types Packs/Day Years [...] suspected to have Coronavirus/COVID-19? No / Unsure 08/26/2022 9:17 AM EDT documented as of this encounter Plan of Treatment Upcoming Encounters Date Type Department Care Team ([facility] Contact Info) Description 07/19/2024 9:00 AM EDT Office Visit [facility] [address] [facility] [place] [address] Name, MD Hayder Sergei [facility] [place] [address] documented as of this encounter Procedures Procedure Name Priority Date/Time Associated Diagnosis Comments PAP/HPV Routine 06/17/2021 12:00 AM EDT documented in this encounter Results * Pap Smear (06/17/2021 12:00 AM EDT) Historical Provider HEALTH MAINTENANCE Final Result documented in this encounter Visit Diagnoses Not on filedocumented in this encounter Care Teams Maintenance Shop Welder Relationship Specialty Start Date End Date Name, MD Hayder Sergei [facility] [place] [address] PCP - General Family Medicine 09/23/19 documented as of this encounter
--- OUTSIDE RECORDS SUMMARY | 2024-05-27 14:31 | XMS_ITS | Clinical Summary ---
Author Organization [employer] Address [address] [place] [address] 7 [place] [address] Care Team Providers Care Health Consultant Name Role Phone Name, Hayder NOVAK Primary Care Provider [phone] Allergies Active Allergy Reactions Criticality Noted Date Comments Blue Dyes (Parenteral) Rash Low 07/29/2022 Cyclobenzaprine High 05/02/2010 Other reaction(s): edema Other reaction(s): H/A,PALPITATIONS, Unknown Iodine Anaphylaxis High 05/02/2010 Other reaction(s): unspecified Other reaction(s): Unknown Lactose 07/29/2022 Other reaction(s): Unknown Latex Rash High 03/14/2022 Other reaction(s): HIVES,ITCHING Other reaction(s): Unknown Norethandrolone Headache High 03/14/2022 Penicillins Unknown High 05/02/2010 Other reaction(s): unspecified Other reaction(s): SWELLING/RASH Red Dye #40 (Allura Red) Rash Low 07/29/2022 Medications calcium carbonate (Os-Kamaljit) 1250 (500 Ca) MG tablet use once a day Activ e fluticasone (Flonase) 50 MCG/ACT nasal spray spray 1 spray by intranasal route every day in each nostril 2 Active Vitron-C 65-125 MG tablet Take 1 tablet by mouth at bedtime. 3 Active traMADol (Ultram) 50 MG tablet Take 50 mg by mouth 2 times daily. 3 Active zolpidem (Ambien) 10 MG tablet Take 1 tablet by mouth at bed time. 2 Active zolpidem (Ambien) 10 MG tablet Take 10 mg by mouth at bedtime. 3 Active zolpidem (Ambien) 10 MG tabletIndication s:Insomnia, unspecified type TAKE 1 TABLET BY MOUTH DAILY AT BEDTIME 30 tablet 2 3 Active QUEtiapine (SEROquel) 25 MG tabletIndication s:Anxiety TAKE 1 TABLET BY MOUTH DAILY AT BEDTIME 30 tablet 2 3 Active baclofen (Lioresal) 10 MG tablet Take 1 tablet (10 mg) by mouth 2 times daily. 60 tablet 11 4 Active albuterol (2.5 MG/3ML) 0.083% nebulizer solution INHALE 1 AMPULE USING A NEBULIZER BY MOUTH EVERY 6 HOURS 90 mL 11 4 Active loratadine (Claritin) 10 MG tablet TAKE 1 TABLET BY MOUTH EVERY DAY 30 tablet 3 4 Active Ventolin HFA 108 (90 Base) MCG/ACT inhalerIndicatio ns:Asthma, unspecified asthma severity, unspecified whether complicated, unspecified whether persistent INHALE 2 PUFFS BY MOUTH EVERY 4 TO 6 HOURS NEEDED 18 g 4 4 Active D3-1000 25 MCG (1000 UT) capsuleIndicatio ns:Vitamin D deficiency TAKE 1 CAPSULE BY MOUTH EVERY MORNING 90 capsule 4 Active topiramate (Topamax) 25 MG tablet Take 1 tablet (25 mg) by mouth 2 times daily. 60 tablet 11 5 05/04/19 26 Active SUMAtriptan (Imitrex) 25 MG tablet Take 1 tablet (25 mg) by mouth 1 (one) time if needed for migraine for up to 27 doses. May repeat dose once in 2 hours if no relief. Do not exceed 2 doses in 24 hours. 9 tablet 2 5 Active Diclofenac Sodium 1 % gel Apply 1 inch topically if needed in the morning and at bedtime (pain). 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 Advised to use heat to affected area Use diclofenac gel twice daily as needed pain + Tylenol and baclofen 20 mg twice daily x 3 days then as needed. If symptoms do not improve, she will return for x-ray and I will follow-up results. Advised to sleep on the right side and put a pillow on the left side so she can turn over that side while sleeping Anemia 08/22/2022 Arcuate uterus 08/22/2022 Concussion 08/22/2022 Chest wall contusion 08/22/2022 Contracture, left foot 08/22/2022 Equinus contracture of left ankle 08/22/2022 Gait abnormality 08/22/2022 Hammer toe 08/22/2022 History of Lizzy-en-Y gastric bypass 08/22/2022 Hx of migraines 08/22/2022 Irregular menses 08/22/2022 Lumbar spondylosis 08/22/2022 Lumbar strain 08/22/2022 Obstructive sleep apnea syndrome 08/22/2022 Pelvic pain in female 08/22/2022 Spina bifida 08/22/2022 Vitamin D deficiency 08/22/2022 Well woman exam 08/22/2022 Dental calculus 07/11/2022 Gingival bleeding 07/11/2022 Malocclusion 07/11/2022 Low back pain 02/09/2012 Migraine 12/12/2011 Asthma 10/29/2011 Obesity 10/29/2011 Depressive disorder 04/06/1959 DUB (dysfunctional uterine bleeding) 04/06/1959 Impaired fasting glucose 04/06/1959 Encounters Date Type Department Care Team Description 05/24/2024 5:20 PM EST Office Visit [facility] [address] [place] [address] Rosemary Tran MD Mid back pain on left side (Primary Dx); Viral upper respiratory tract infection 05/09/2024 Telephone [facility] [address] [place] [address] Hayder Alvarez MD Durable Medical Equipment (Incont pad) 05/04/2024 10:30 AM EST Office Visit [facility] [address] [place] [address] Hayder Alvarez MD Migraine without aura and without status migrainosus, not intractable (Primary Dx); Chronic neck pain 04/21/2024 Telephone [facility] [address] [place] [address] Kaela Sood, JOHNY 04/20/2024 Telephone [facility] [address] [place] [address] Hayder Alvarez MD Med Refill 04/11/2024 Orders Only [facility] External Provider, [facility] 03/10/2024 Telephone [facility] [address] [place] [address] Bailey Pizano [place] [employer] [facility] 03/07/2024 Refill [facility] [address] [place] [address] Celina Vazquez MD Vitamin D deficiency 03/07/2024 Telephone [facility] [address] [place] [address] Bailey Pizano [place] DME wipes from [facility] 02/25/2024 Refill [facility] [address] [place] [address] Hayder Alvarez MD Asthma, unspecified asthma severity, unspecified whether complicated, unspecified whether persistent from Last 3 Months Immunizations Name Administration Dates Next Due Influenza injectable quadriv alent IIV4 with preservative 01/03/2015 Influenza, IIV3, injectable 12/26/2013, 1 Influenza, Split (incl. purified surface antigen ) 02/03/2013,12/12/2011 Pfizer Covid-19 Vaccine 12+ Bivalent 04/11/2022 TD (adult), 2 Lf tetanus tox oid, preservative free, adsorbed 03/11/2021 Tdap 09/13/2009 Social History Tobacco Use Types Packs/Day Years Used Date Smoking Tobacco: Never Passive Smoke Exposure: Never Smokeless Tobacco: Never Tobacco Cessation:Counseling Given: [...] your housing situation today? I have heather sing 09/22/[address] you li [...] not to disclose 2021 10:18 AM EDT Last Filed Vital Signs Vital Sign Reading Time Taken Comments Blood Pressure 120/76 05/24/2024 4:51 PM EST Pulse 63 05/24/2024 4:51 PM EST Temperature 37.1 ??C (98.8 ??F) 05/24/2024 4:51 PM ES T Respiratory Rate 19 05/24/2024 4:51 PM EST Oxygen Saturation 98% 05/24/2024 4:51 PM EST Inhaled Oxygen Concentration - - Weight 86 kg (189 lb 8 oz) 05/24/2024 4:51 PM ES T Height 154.9 cm (5' 1 ) 05/24/2024 4:51 PM EST Body Mass Index 35.81 05/24/2024 4:51 PM EST Plan of Treatment Upcoming Encounters Date Type Department Care Team (Late st Contact Info) Description 07/19/2024 9:00 AM EDT Office Visit [facility] [address] [place] [address] Name, MD Hayder [address] [place] [address] Health Maintenance Due Date Last Done Comments Dental X-Ray: Full Mouth 1980 HIV Screening 1980 Family Planning (PISQ) 11/22/1995 Hepatitis C Screening 1998 Hepatitis B Vaccines (1 of 3 - 19+ 3-dose series) 11/22/1999 Pneumococcal Vaccine: Pediatrics (0 to 5 Years) and At-Risk Patients (6 to 49) Years) (1 of 2 - PCV) 11/22/1999 Dental Oral Exam 01/11/2023 07/11/2022 Dental Prophylaxis 01/11/2023 07/11/2022 Dental X-Ray: Bitewings 07/13/2023 07/11/2022 COVID-19 Vaccine ( season) 2023 04/11/2022, 11/14/2021, 05/24/2021, Additional history exists Influenza Vaccine (#1) 2023 5, 12/26/2013, 02/03/2013, Additional history exists Alcohol/Substance Use Screening 09/21/2024 09/22/2023 Depression Screening 09/21/2024 09/22/2023, 09/22/19 24 SDOH Screening 09/21/2024 09/22/2023 Mammogram 04/11/2025 04/11/2024, 01/05, 01/27/2023 Tobacco Screening 05/24/2025 05/24/2024 Cervical Cancer Screening 02/14/2027 HPV/Cotest 02/14/2027 06/17/2021, 06/04, 06/17/2021 Pap Smear 02/14/2027 02/15/2024, 12/05, 08/22/2022, Additional history exists Lipid Panel 02/18/2028 02/17/2023 Zoster Vaccines (1 of 2) 2030 DTaP/Tdap/Td Vaccines (3 - Td or Tdap) 03/11/2031 03/11/2021, 09/13/2009 RSV Patients and Patients Aged 60 years or older (1 - 1-dose 75+ series) 11/22/2055 HIB Vaccines Aged Out No longer eligi ble based on patient's age to complete this topic HPV Vaccines Aged Out No longer eligi ble based on patient's age to complete this topic Hepatitis A Vaccines Aged Out No long er eligible based on patient's age to complete this topic IPV Vaccines Aged Out No longer eligi ble based on patient's age to complete this topic Meningococcal Vaccine Aged Out No michaelle ana laura eligible based on patient's age to complete this topic RSV under 20 months Aged Out No longe r eligible based on patient's age to complete this topic Rotavirus Vaccines Aged Out No longer eligible based on patient's age to complete this topic Procedures Procedure Name Priority Date/Time Associated Diagnosis Comments BI MAMMOGRAM SCREENING TOMOSYNTHESIS BILATERAL Routine 04/11/2024 10:45 AM EST PAP SMEAR Routine 02/15/2024 9:23 AM EST LIPID PANEL, STANDARD Routine 02/17/2023 9:08 AM EST Screening for cholesterol level PERIODIC ORAL EVALUATION - ESTABLISHED PATIENT Routine 07/11/2022 10:00 AM EDT PROPHYLAXIS - ADULT Routine 07/11/2022 8 :00 AM EDT Dental calculus Gingival bleeding BITEWINGS - 4 RADIOGRAPHIC IMAGES Routine 07/11/2022 8:00 AM EDT Dental calculus Gingival bleeding HM PAP/HPV Routine 06/17/2021 from Last 3 Months or Most Recently Relevant to Health Maintenance Results * BI Mammogram Screening Tomosynthesis Bilateral (04/11/2024 10:45 AM EST) Anatomical Region Laterality Modality Breast Bilateral Mammography 04/11/2024 10:4 5 AM EST Narrative 04/17/2024 6:00 PM EST ? [facility] ? [address] ?[place] [address] ? Mammography Report ? Signed ? Patient: Rajbally,Cindi ?MR#: [id number] ?? [id number] ? : 1980 ?Acct:[id number] ? Age/Sex: 43 / F ?ADM Date: 01/06/25 ? Loc: HO.MAMMO ? Attending Dr: Aram Hogan MD ? Ordering Physician: Aram Hogan MD ?Results: 1Negativ ?? e ? Date of Service: 04/11/24 ?Follow Up: 1 Year From Orig ?? inal Mammogram ? Procedure(s): MM tomosynthesis screening BI ?? Accession Number(s): [id number] ? cc: Hayder Alvarez MD; Aram Hogan MD ? EXAMINATION: ?? MM SCREENING DIGITAL BREAST TOMOSYNTHESIS, BILATERAL ? CLINICAL INFORMATION: ? Screening. Asymptomatic. ? COMPARISON: ?? Mammography: Comparison is made with available priors ? TECHNIQUE: ?? Digital breast mammography with tomosynthesis is performed in both the ?? craniocaudal and mediolateral oblique views along with computer-aided ?? detection (CAD). ? FINDINGS: ?? There are scattered areas of fibroglandular density (ACR BI-RADS breast ?? composition Category b). ? There are no significant masses, abnormal calcifications, or other ?? abnormalities. ? MM/MM tomosynthesis screening BI ?? IMPRESSION: ?? No mammographic evidence of malignancy. ? ASSESSMENT: ? BI-RADS BI-RADS 1 - Negative ? RECOMMENDATION: ?? Routine annual mammography screening. ? 1 year F/U ? This examination should not preclude the clinical evaluation of a ?? suspicious palpable abnormality. ? This patient's information was entered into a reminder system with a ?? target due date for their next mammogram. ? Electronically signed by: ??Haleigh Jacob DO ??04/17/2024 05:57 PM EST ?? RP ? Dictated By: ?Haleigh Jacob DO ? Signed By: ?<Electronically signed by Haleigh Jacob, DO in OV> ? 04/17/241756 ? DD/ 1045 ? TD/TT: 04/11/24 1108 ? Compliance Attorney: ? Procedure Note Donedwardter, Image - 04/17/2024 [facility] [address] [place], [place] [address] Mammography Report Signed Patient: Carleen Murdock#: [id number] : 1980Acct:[id number] Age/Sex: 43 / FADM Date: 04/11/24 Loc: HO.MAMMO Attending Dr: Aram Hogan MD Ordering Physician: Aram Hogan MDResults: 1Negativ e Date of Service: 04/11/24Follow Up: 1 Year From Orig inal Mammogram Procedure(s): MM tomosynthesis screening BI Accession Number(s): [id number] cc: Hayder Alvarez MD; Aram Hogan MD EXAMINATION: MM SCREENING DIGITAL BREAST TOMOSYNTHESIS, BILATERAL CLINICAL INFORMATION: Screening. Asymptomatic. COMPARISON: Mammography: Comparison is made with available priors TECHNIQUE: Digital breast mammography with tomosynthesis is performed in both the craniocaudal and mediolateral oblique views along with computer-aided detection (CAD). FINDINGS: There are scattered areas of fibroglandular density (ACR BI-RADS breast composition Category b). There are no significant masses, abnormal calcifications, or other abnormalities. MM/MM tomosynthesis screening BI IMPRESSION: No mammographic evidence of malignancy. ASSESSMENT: BI-RADS BI-RADS 1 - Negative RECOMMENDATION: Routine annual mammography screening. 1 year F/U This examination should not preclude the clinical evaluation of a suspicious palpable abnormality. This patient's information was entered into a reminder system with a target due date for their next mammogram. Electronically signed by: Haleigh Jacob DO 04/17/2024 05:57 PM EST Dictated By: Haleigh Jacob DO Signed By: <Electronically signed by Haleigh Jacob DO in OV> 04/17/24 1127 DD/ 1045 TD/TT: 04/11/24 1108 Compliance Attorney: [facility] External Provider IMG BI PROCEDURES Edited Result - Final * Pap Smear (02/15/2024 9:23 AM EST) 02/15/2024 9:23 AM EST 02/15/2024 11:00 AM EST [facility] - 02/18/2024 9:42 AM EST ----- ------- Name: Cindi Murdock ?Age/Sex: 43/F ? : 1980 Unit#: [id number] ?? Attend Dr: Aram Hogan MD ?Re02/15/24 ?Status: DEP REF ? Location: HO.LNP ?Disch: ? ----- ------- SPEC : [id number] ?RECD: 02/15/24-1099 ? STATUS: ??SOUT ? REQ NUM: [id number] ? JOHN: 02/15/24 ? SUBM DR: Aram Hogan MD ? ENTERED: ??02/15/24 ?SP TYPE: Pap Smr ?OTHR DR: Hayder Alvarez MD ? ORDERED: ??Pap Smear ? Interpretation ?? Satisfactory for evaluation. ?? Negative for intraepithelial lesion or malignancy. ?? Scant cellularity. ? HPV High Risk: ??Negative ? HPV Genotyping 16: ??Negative ?? HPV Genotyping 18: ??Negative ?Clinical Information LMP: 02/15/2024 Previous PAP test: 12/19/2022, HPV + ? Material Received ?? ThinPrep-Cervical Copies To: ?? NameHayder MD ?? [address] ?? [place] [address] ?? [phone] ?? Aram Hogan MD ?? [facility] ?? [address] [facility] [address] ?? [place] [address] ?? [phone] ----- ------- Signed (signature on file) RICHARD Zelaya (ASCP) 02/18/24 0942 ? ----- ------- ? END OF REPORT ? us Generic External Data Provider LAB CYTOLOGY LALY DAWKINS Final Result [facility] [address] [place] [phone] * (ABNORMAL) Lipid Panel, Standard (02/17/2023 9:08 AM EST) Triglycerides 56 <150 mg/dL [facility] Comment:Desirable Triglyceri de: less than 150 mg/dLBorderline High Triglyceride 150-199 mg/dLHigh Triglyceride: 200-499 mg/dLVery High Triglyceride: greater than or equal to 5OO mg/dL Cholesterol 188 <200 mg/dL [facility] Comment:Desirable Cholestero l: less than 200 mg/dLBorderline High Cholesterol: 200-239 mg/dLHigh Cholesterol: greater than 239 mg/dL LDL Cholesterol Calculated 122(H) <100 mg/dL [facility] Comment:Desirable LDL: less than 100 mg/dLNear Optimal/Above Optimal LDL: 110- 129 mg/dLBorderline High LDL: 130-159 mg/dLHigh LDL: 160-189 mg/dLVery High LDL: greater than or equal to 190 mg/dL HDL Cholesterol 55 >40 mg/dL [facility] Comment:Desirable HDL: great er than 40 mg/dL Note: This HDL assay may give artificially low results in patients with liver disease. Blood Venous blood specimen / Unknown 02/17/2023 9:08 AM EST 02/17/2023 11:32 AM EST Hayder Alvarez MD LAB BLOOD ORDERABLES Final Resul t [facility] [address] [place] [phone] * (ABNORMAL) Pap Smear (06/17/2021) Pap Negative for intraephithelial lesion or malignancy Negative for intraephithelial lesion or malignancy, Other HPV Detected Comment:HPV mRNA E6/E7 rflx 06/17/2021 Aram Hogan MD HEALTH MAINTENANCE Final Result from Last 3 Months or Most Recently Relevant to Health Maintenance Insurance [address] [place] [id number] [facility] Care Teams Health Consultant Relationship Specialty Start Date End Date Name, MD Hayder [address] [place] [address] PCP - General Family Medicine 09/23/19
--- OUTSIDE RECORDS SUMMARY | 2024-05-27 14:31 | XMS_ITS ---
Author Organization [facility] Address [address] [place] [phone] Care Team Providers Care Exercise Physiologist Name Role Phone Name Hayder NOVAK Primary Care Provider Joan Torrez [phone] Curtis Encounters Encounter Location Date Provider Diagnosis [address] [address] 12/02/2022 Joan Grimaldo Plan Of Treatment Next Appt Details Provider Name:Joan grajeda, 12/20/2024 09:00:00 AM, [address] [place], [address], Progress Notes * Cindi VAIL TDOB:[birth year] (43 yo F)Acc No.[id number]:12/02/2022 Progress Note Patient:?Cindi VAIL Provider:?Joan Grimaldo DPM :1980???Age:42 Y???Sex:Female D ate:12/02/2022 Address:[address] [place] [address] [place] [phone] Pcp:Hayder Alvarez MD Subjective: * Chief Complaints: [...] Grimaldo DPM Date:? Generated for Mindy yip/Christiano/Martin on:?05/27/2024 02:30 PM EST
--- OUTSIDE RECORDS SUMMARY | 2024-05-27 14:31 | XMS_ITS | Encounter Summary ---
Author Organization [employer] Address [address] [place] [address] [address] [place] [address] Care Team Providers Care Oracle Obiee Developer Name Role Phone Name, Hayder NOVAK Primary Care Provider [phone] Encounter Details Date Type Department Care Team (Late st Contact Info) Description 01/07/2023 Abstract [facility] [address] [place], [place] [phone] Pauline Walton Social History Tobacco Use Types Packs/Day Years [...] Description 07/19/2024 9:00 AM EDT Office Visit [facility] [address] [place], [place] [phone] Name, MD Hayder [address] [place] [address] documented as of this encounter Visit Diagnoses Not on filedocumented in this encounter Additional Health Concerns Assessment Noted Time PHQ-9 Depression Total Score: 0 08/27/19 23 9:25 AM EDT documented as of this encounter Care Teams Oracle Obiee Developer Relationship Specialty Start Date End Date Name, MD Hayder [address] [place] [address] PCP - General Family Medicine 09/23/19 documented as of this encounter
--- OUTSIDE RECORDS SUMMARY | 2024-05-27 14:31 | XMS_ITS ---
Author Organization [facility] Address [address] [facility] [place] [address] Care Team Providers Care Quoter Name Role Phone Name Hayder NOVAK Primary Care Provider Joan Torrez Unavailable [phone] Allergies Allergen (clinical drug ingredient) Drug/Non Drug Allergy documented on EMR Reaction Allergy Type Onset Date Status cyclobenzaprine Cyclobenzaprine Unknown Drug Allergy Active Iodine Unknown Drug Allergy Active Latex Latex Unknown Allergy Active norethindrone Norethindrone Unknown Drug Allergy Active Penicillin Unknown Drug Allergy Active REASON FOR VISIT Pcp-09/22/23, Painful Toe(s) Medications Medication SIG (Take, Route, Frequency, Duration) Notes Start Date End Date Status Dicyclomine HCl 20 MG 1 tablet Orally [...] a day for 30 day(s) Unknown Vitamin A Active Vitamin D3 25 MCG (1000 UT) 1 capsule Orally Once a day for 30 day(s) Active Vitron-C Active Zolpidem Tartrate 10 MG 1 tablet at bedt joey as needed Orally Once a day Active AFO-fixed . 1 . Wear daily to le ft foot 08/12/2022 Active Albuterol Active QUEtiapine Fumarate 25 MG 1 tablet at be dtime Orally Once a day for 30 day(s) Active traMADol HCl 50 MG 1 tablet as needed Orally Once a day Active Ventolin HFA Active Multi Max Unknown Social History Tobacco Use: Social History Observation Description Date Details (start date - stop date) Never Smoker NA - NA Tobacco Use/Smoking Question Answer Notes Are you a: nonsmoker Additional Findings: Tobacco Non-User Current no n-smoker Tobacco use other than smoking: Question Answer Notes Are you an other tobacco user? No Vital Signs Height 5ft1in in 12/15/2023 Weight 175 lbs 12/15/2023 BMI 33.06 kg/m2 12/15/2023 Encounters Encounter Location Date Provider Diagnosis [facility] [place] [address] [place] [address] 12/15/2023 Joan Grimaldo Equinus contracture of left ankle M24.572 ; Contracture, left foot M24.575 ; Spina bifida, unspecified hydrocephalus presence, unspecified spinal region Q05.9 ; Hammer toe of left foot M20.42 and Gait abnormality R26.9 Assessments Encounter Date Diagnosis (ICD Code) Assessment Notes Treatment Notes Treatment Clinical Notes Section Notes 12/15/2023 Equinus contracture of left ankle (ICD-10 - M24.572) 12/15/2023 Contracture, left foot (ICD-10 - M24.575) 12/15/2023 Spina bifida, unspecified hydrocephalus presence, unspecified spinal region (ICD-10 - Q05.9) 12/15/2023 Hammer toe of left foot (ICD-10 - M20.42) 12/15/2023 Gait abnormality (ICD-10 - R26.9) Plan Of Treatment Next Appt Details Follow Up: 1 Year, Reason: Provider Name:Joan grajeda, 12/20/2024 09:00:00 AM, [address] [place] [address], [phone], Progress Notes * Cindi VAIL TDOB:[birth year] (43 yo F)Acc No.[id number]:12/15/2023 Progress Note Patient:?Cindi Vail T Provider:?Joan Grimaldo DPM :1980???Age:43 Y???Sex:Female D ate:12/15/2023 Address:[address] [place] [address] t [id number] Pcp:Hayder Alvarez MD Subjective: * Chief Complaints: * ???Pcp-09/22/23Painful Toe(s ) * HPI: ???Toe pain:?Nature:?tenderness, contracture, difficulty walking.?Location:?2-5 Left foot.?Duration:?since .?Onset/Cause:?spina bifida.?Course:?progressive.?Aggravated by:?shoes, any pressure , standing/walking.?Treatments:?change in shoes, braces as a kid, physical therapy, AFO.? * ROS:?General/Constitutional:?Nausea?denies, denies, denies.?Vomiting?denies, denies, denies.?Hunger Thirst?denies, denies, denies.?Loss appetite?denies, denies, denies.?Chills?denies, denies, denies.?Fatigue?denies, denies, denies.?Fever?denies, denies, denies.?Night Sweats?denies, denies, denies.?Unexplained weight loss?denies, denies, denies.?Unexplained weight gain?denies, denies, denies.?HEENTM:?Dentures?denies, denies, denies.?Dizziness?denies, denies, denies.?Glasses/contacts?admits, admits, admits.?Retinopathy?denies, denies, denies.?Blurred/double vision?denies, denies, denies.?TMJ?denies, denies, denies.?Discharge/drainage?denies, denies, denies.?Implants?denies, denies, denies.?Sore throat?denies, denies, denies.?Dental implants?denies, denies, denies.?Hard of hearing ?denies, denies, denies.?Difficulty chewing/swallowing/speaking denies, denies, denies.?Nose bleeds?denies, denies, denies.?Sore mouth?denies, denies, denies.?Respiratory:?On Oxygen?denies, denies, denies.?Pneumonia/pleurisy?denies, denies, denies.?Bronchitis?denies, denies, denies.?Emphysema?denies, denies, denies.?Coughing?denies, denies, denies.?Cough blood?denies, denies, denies.?Shortness of breath?admits, admits, admits.?Wheezing?admits, admits, admits.?Cardiovascular:?Pacemaker?denies, denies, denies.?MVP?denies, denies, denies.?WPW?denies, denies, denies.?CHF?denies, denies, denies.?Heart attack?denies, denies, denies.?Septal defect?denies, denies, denies.?Rapid beat denies, denies, denies.?Chest pain ?denies, denies, denies.?Atrial Fib.?denies, denies, denies.?Murmur/Palpitations?denies, denies, denies.?Gastrointestinal:?Hemorrhoids?denies, denies, denies.?Stomach/Abdominal pain?denies, denies, denies.?Dark blood stool?denies, denies, denies.?Irritable bowel ?denies, denies, denies.?Constipation?denies, denies, denies.?Diarrhea?denies, denies, denies.?Hematology:?Swelling?denies, denies, denies.?Clots?denies, denies, denies.?Varicose Veins?denies, denies, denies.?Bruising?denies, denies, denies.?Bleeding problem?denies, denies, denies.?Genitourinary:?Blood urine?denies, denies, denies.?Frequent/Painfu/urination/bladder control?denies, denies, denies.?Kidney stones?denies, denies, denies.?Infection (UTI)?denies, denies, denies.?Nephropathy?denies, denies, denies. sex trans dis (STD)?denies, denies, denies.?Prostate?denies, denies, denies.?Musculoskeletal:?Hammertoes?denies, denies, denies.?Bunions?denies, denies, denies.?Back Pain?admits, admits, admits.?Muscle Cramps/ Resting?admits, admits, admits.?Muscle cramps / walking?admits, admits, admits.?Generalized aches and pains?denies, denies, denies.?Weakness?denies, denies, denies.?Integ.:?Florentino?denies, denies, denies.?Scars?denies, denies, denies.?Corns/calluses?denies, denies, denies.?Ingrown nails?denies, denies, denies.?Painful nails?denies, denies, denies.?Open Sores?denies, denies, denies.?Rashes?denies, denies, denies.?Neurologic:?Difficulty sleeping?admits, admits, admits.?Brain disorder?denies, denies, denies.?Numbness?admits, admits, admits.?Balance trouble?admits, admits, admits.?Confusion?denies, denies, denies.?Fainting/blackouts?admits, admits, admits.?Tingling?denies, denies, denies.?Tremors?denies, denies, denies.? * Medical History:? * Surgical History:?gastric by pass arm * Hospitalization/Major Diagno stic Procedure:?Denies Past Hospitalization * Family History:?Mother: aliv e, asthma, hypertension, cardiovascular, foot problems, diagnosed with Family history of arthritis, Diabetic - NIDDM, Unspecified essential hypertension, Other specified conditions influencing health status.?Father: alive, cardiovascular, asthma, foot problems, diagnosed with Family history of arthritis, Diabetic - NIDDM, Unspecified essential hypertension, Other specified conditions influencing health status.? * Social History:?Tobacco Use:?Tobacco Use/Smoking?Are you a:?nonsmoker ?Additional Findings: Tobacco Non-User?Current non-smoker ?Tobacco use other than smoking?Are you an other tobacco user??No ???Miscellaneous:?Caffeine: yes, frequency:, 1-2 cups per day. [...] Orthotic 1 . Wear daily to left footNot-Taking/PRNDicyclomine HCl 20 MG Tablet 1 tablet Orally Three times a dayDocusate Sodium 100 MG Capsule 1 capsule as needed Orally Once a dayIron Combinations - Tablet as directed Orally Not-Taking/PRN Dicyclomine HCl 20 MG Tablet 1 tablet Orally Three times a dayNot-Taking/PRN Docusate Sodium 100 MG Capsule 1 capsule as needed Orally Once a dayNot-Taking/PRN Iron Combinations - Tablet as directed Orally UnknownFlovent HFA 110 MCG/ACT Aerosol 2 puffs Inhalation Twice a dayLoratadine 10 MG Tablet 1 tablet Orally Once a dayMulti Max Medication List reviewed and reconciled with the patientUnknown Flovent HFA 110 MCG/ACT Aerosol 2 puffs Inhalation Twice a dayUnknown Loratadine 10 MG Tablet 1 tablet Orally Once a dayUnknown Multi Max Medication List reviewed and reconciled with the patient * Allergies:?CyclobenzaprineIo dineLatexNorethindronePenicillinyes[Allergies Verified] Objective: * Vitals:?Ht: 5ft1in, Wt:175, BMI:33.06, Shoe size: 7-7.5, Ht-cm: 154.94 cm, Wt- k.38 kg. * Examination: ???General Examination: ?GENERAL APPEARANCE:?Reveals [...] at the present time.? Assessment: * Assessment: 1.?Contracture, left foot - M24.575 (Primary)?2.?Equinus contracture of left ankle - M24.572, Chronic problem, Stable (1=3,2=4)?3.?Spina bifida, unspecified hydrocephalus presence, unspecified spinal region - Q05.9?4.?Hammer toe of left foot - M20.42, Chronic problem, Stable (1=3,2=4)?5.?Gait abnormality - R26.9? Plan: * Treatment: * Procedure Codes:? * Preventive Medicine:? ??Counseling:?Discussion:?-13: Office or other outpatient visit for the evaluation and management of an established patient, which required a medically appropriate history and/or examination and LOW level of DECISION MAKING for: 1 STABLE ACUTE UNCOMPLICATED PROBLEM, 2 OR MORE MINOR PROBLEMS, OR 1 STABLE CHRONIC PROBLEM, THAT POSE(S) A LOW RISK FOR MORBIDITY/MORTALITY. The visit on the day of the [...] have encouraged the patient to call the office.?Consult:?The patient was counseled on the diagnosis, treatment options, and the need for a, PCP Consult for botox injections to help with contracture left foot.?BioMech.:?I discussed the Pts foot biomechanics with them and how it relates to their problem, Continue AFO brace left foot/leg to help with [...] Sign off status: Completed true * Provider:?Joan Grimaldo, MARGARITAM Date:?01/2024 Generated for Miladyi theodora/Christiano/Martin on:?05/27/2024 02:31 PM EST History and Physical Notes * HPI (History of Present Illness) Category Sub-Category Detail Notes Category Not es Toe pain Nature: tenderness, contracture, dif ficulty walking Location: 2-5 Left foot Duration: since Onset/Cause: spina bifida Course: progressive Aggravated by: shoes, any pressure , standing/walking Treatments: change in shoes, bra lopez as a kid, physical therapy, AFO Examination Category Sub-Category Detail Notes Category [...]
--- OUTSIDE RECORDS SUMMARY | 2024-05-27 14:31 | XMS_ITS | Encounter Summary ---
Author Organization [employer] Address [address] [facility] [address] [place] [address] Care Team Providers Care Packaging Operator Name Role Phone Name, Hayder NOVAK Primary Care Provider [phone] Encounter Details Date Type Department Care Team ([facility] st Contact Info) Description 05/24/2024 5:20 PM EST Office Visit [facility] [address] [place] [address] Rosemary Tran MD [address] [place] [address] Mid back pain on left side (Primary Dx); Viral upper respiratory tract infection Social History Tobacco Use Types Packs/Day Years [...] Mass Index 35.81 05/24/2024 4:51 PM EST documented in this encounter Progress Notes * Rosemary Tran MD - 05/24/2024 5:20 PM EST SUBJECTIVE: Cindi Murdock is a 43 y.o. year old female who presents for Walk In Center/left rib pain . Denies recent illness, injury, or hospitalization. Acute Concerns: Patient complains of left-sided mid back pain for on and off for approximately that increases with patient lays on the left side. She has not had any recent accidents or falls. She has occasional left upper extremity numbness. She has chronic low back pain and numbness for many years reportedly dueto spina bifida Social History Social History Narrative Not on file Patient Active Problem List Diagnosis Dental calculus Gingival bleeding Malocclusion Anemia Arcuate uterus Asthma Concussion Chest wall contusion Contracture, left foot Depressive disorder DUB (dysfunctional uterine bleeding) Equinus contracture of left ankle Gait abnormality Hammer toe History of Lizzy-en-Y gastric bypass Hx of migraines Impaired fasting glucose Irregular menses Low back pain Lumbar spondylosis Lumbar strain Migraine Obesity Obstructive sleep apnea syndrome Pelvic pain in female Spina bifida ([facility]/HCC) Vitamin D deficiency Well woman exam Mid back pain on left side No family history on file. Review of Systems Constitutional: Negative for chills, fatigue and fever. HENT: Negative for congestion, ear pain, nosebleeds, rhinorrhea, sinus pressure, sore throat and trouble swallowing. Eyes: Negative for pain and discharge. Respiratory: Negative for cough, chest tightness and shortness of breath. Cardiovascular: Negative for chest pain, palpitations and leg swelling. Gastrointestinal: Negative for abdominal pain, blood in stool, constipation, diarrhea and nausea. Endocrine: Negative for polydipsia and polyuria. Genitourinary: Negative for dysuria, frequency, genital sores, pelvic pain and vaginal discharge. Musculoskeletal: Positive for back pain. Negative for neck pain. Skin: Negative for rash. Allergic/Immunologic: Negative for environmental allergies. Neurological: Negative for dizziness, seizures, weakness, light-headedness and headaches. Hematological: Negative for adenopathy. Psychiatric/Behavioral: Negative for agitation, behavioral problems, self-injury and suicidal ideas. OBJECTIVE: Vitals: 05/24/24 1651 BP: 120/76 Pulse: 63 Resp: 19 Temp: 98.8 ??F (37.1 ??C) SpO2: 98% Physical Exam HENT: Right Ear: Tympanic membrane and ear canal normal. Left Ear: Tympanic membrane and ear canal normal. Mouth/Throat: Mouth: Mucous membranes are moist. Pharynx: No oropharyngeal exudate or posterior oropharyngeal erythema. Eyes: Pupils: Pupils are equal, round, and reactive to light. Cardiovascular: Rate and Rhythm: Regular rhythm. Pulses: Normal pulses. Heart sounds: Normal heart sounds. No murmur heard. Pulmonary: Breath sounds: Normal breath sounds. Abdominal: General: Bowel sounds are normal. Palpations: Abdomen is soft. Tenderness: There is no abdominal tenderness. Musculoskeletal: Cervical back: Neck supple. Thoracic back: Tenderness present. Decreased range of motion (due to pain). Lumbar back: Tenderness present. Positive right straight leg raise test and positive left straight leg raise test. Skin: General: Skin is warm. Neurological: General: No focal deficit present. Mental Status: She is alert and oriented to person, place, and time. Psychiatric: Mood and Affect: Mood normal. Behavior: Behavior normal. Problem List Items Addressed This Visit Mid back pain on left side - Primary Seems to be related to DJD of [...] side so she can turn over that sidewhile sleeping Relevant Orders XR Thoracic Spine 2 Views Other Visit Diagnoses Viral upper respiratory tract infection Follow Up: Current Outpatient Medications on File Prior to Visit Medication Sig Dispense Refill albuterol (2.5 MG/3ML) 0.083% nebulizer solution INHALE 1 AMPULE USING A NEBULIZER BY MOUTH EVERY 6HOURS 90 mL 11 baclofen (Lioresal) 10 MG tablet Take 1 tablet (10 mg) by mouth 2 times daily. 60 tablet 11 calcium carbonate (Os-Kamaljit) 1250 (500 Ca) MG tablet use once a day D3-1000 25 MCG (1000 UT) capsule TAKE 1 CAPSULE BY MOUTH EVERY MORNING 90 capsule 0 fluticasone (Flonase) 50 MCG/ACT nasal spray spray 1 spray by intranasal route every day in each nostril loratadine (Claritin) 10 MG tablet TAKE 1 TABLET BY MOUTH EVERY DAY 30 tablet 3 QUEtiapine (SEROquel) 25 MG tablet TAKE 1 TABLET BY MOUTH DAILY AT BEDTIME 30 tablet 2 SUMAtriptan (Imitrex) 25 MG tablet Take 1 tablet (25 mg) by mouth 1 (one) time if needed for migraine for up to 27 doses. May repeat dose once in 2 hours if no relief. Do not exceed 2 doses in 24 hours. 9 tablet 2 topiramate (Topamax) 25 MG tablet Take 1 tablet (25 mg) by mouth 2 times daily. 60 tablet 11 traMADol (Ultram) 50 MG tablet Take 50 mg by mouth 2 times daily. Ventolin HFA 108 (90 Base) MCG/ACT inhaler INHALE 2 PUFFS BY MOUTH EVERY 4 TO 6 HOURS NEEDED 18 g 4 Vitron-C 65-125 MG tablet Take 1 tablet by mouth at bedtime. zolpidem (Ambien) 10 MG tablet Take 1 tablet by mouth at bed time. zolpidem (Ambien) 10 MG tablet Take 10 mg by mouth at bedtime. zolpidem (Ambien) 10 MG tablet TAKE 1 TABLET BY MOUTH DAILY AT BEDTIME 30 tablet 2 No current facility-administered medications on file prior to visit. documented in this encounter Miscellaneous Notes * Assessment & Plan Note - Rosemary Tran MD - 05/24/2024 5:48 PM EST Associated Problem(s): Mid back pain on left side Seems to be related to DJD of [...] side so she can turn over that sidewhile sleeping documented in this encounter Plan of Treatment Upcoming Encounters Date Type Department Care Team (Late st Contact Info) Description 07/19/2024 9:00 AM EDT Office Visit [facility] [address] [place] [address] Name, MD Hayder [address] [place] [address] Scheduled Orders Name Type Priority Associated Diagnoses Orde r Schedule XR Thoracic Spine 2 Views Imaging Routine Mid back pain on left side Expected: 05/24/2024, Expires: 05/24/2025 documented as of this encounter Visit Diagnoses Diagnosis Mid back pain on left side- Primary Viral upper respiratory tract infection Acute upper respiratory infections of unspecified site documented in this encounter Additional Health Concerns Assessment Noted Time PHQ-9 Depression Total Score: 0 09/22/19 24 11:47 AM EDT documented as of this encounter Care Teams Packaging Operator Relationship Specialty Start Date End Date Name, MD Hayder [address] [place] [address] PCP - General Family Medicine 09/23/19 documented as of this encounter
--- OUTSIDE RECORDS SUMMARY | 2024-05-27 14:31 | XMS_ITS | Encounter Summary ---
Author Organization [employer] Address [address] [facility] [address] [place] [address] Care Team Providers Care Hardware Trainer Name Role Phone Name, Hayder NOVAK Primary Care Provider [phone] Reason for Visit * Reason Comments Med Refill Encounter Details Date Type Department Care Team ([facility] st Contact Info) Description 03/24/2023 Refill [facility] [address] [place], [place] [id number] Name, MD Hayder [address] [place] [address] Social History Tobacco Use Types Packs/Day Years [...] Office Visit [facility] [address] [place] [address] NameHayder MD [address] [place] [address] documented as of this encounter Visit Diagnoses Not on filedocumented in this encounter Additional Health Concerns Assessment Noted Time PHQ-9 Depression Total Score: 0 08/27/19 23 9:25 AM EDT documented as of this encounter Care Teams Hardware Trainer Relationship Specialty Start Date End Date Name, MD Hayder [address] [place] [id number] PCP - General Family Medicine 09/23/19 documented as of this encounter
--- OUTSIDE RECORDS SUMMARY | 2024-05-27 14:32 | XMS_ITS | Patient Health Record ---
Author Organization [facility] Address [address] [place] [address] Care Team Providers Care Animal Husbandry Worker Name Role Phone Name Hayder NOVAK Primary Care Provider Joan Torrez Unavailable [phone] Allergies Allergen (clinical drug ingredient) Drug/Non Drug [...] Problem Status W/U Status Risk Notes Problem 237954739170362 Contracture, lef t foot (M24.575) Active confirmed Problem 002990712 Hammer toe of right foot (M20.41) Active confirmed Problem 151088971 Hammer toe of left foot (M20.42) Active confirmed Problem 44381963 Gait abnormality (R26.9) Active confirmed Problem 441612843 Equinus contracture of left ankle (M24.572) Active confirmed Problem 54414521 Spina bifida, unspecified hydrocephalus presence, unspecified spinal region (Q05.9) Active confirmed Vital Signs Height 5ft1in in 12/15/2023 Weight 175 lbs 12/15/2023 BMI 33.06 kg/m2 12/15/2023 Encounters Encounter Location Date Provider Diagnosis [facility] [place] [address] [place] [address] 12/15/2023 Joan Grimaldo Equinus contracture of left [...] Name:Joan Johann grajeda, 12/20/2024 09:00:00 AM, [address] [place], [address], Insurance Providers Payer Name Payer Address Payer Phone Subscriber Number Group Number Insured Name Patient Relationship to Insured Coverage Start Date Coverage End Date [facility] [employer] Claims [address] [place] [id number] Cindi Murdock Self - patient is the insured Medical (General) History Medical History History ICD Code Anxiety Arthritis asthma Back,Hip,and Knee pain Broken bones covid-19 Macular degeneration Migraines Reflux ( GERD) Seizures Spina bifida uterine bleeding Surgical History Surgery Date(Month/Year) gastric bypass arm
--- OUTSIDE RECORDS SUMMARY | 2024-05-27 14:32 | XMS_ITS ---
Author Organization [facility] Address [address] [facility] [place] [address] Care Team Providers Care Linux Consultant Name Role Phone Name Hayder NOVAK Primary Care Provider Joan Torrez Unavailable [phone] Allergies Allergen (clinical drug ingredient) Drug/Non Drug [...] 12/16/2022 Encounters Encounter Location Date Provider Diagnosis [facility] [place] [address] [place] [address] 12/16/2022 Joan Grimaldo Spina bifida, unspecified hydrocephalus [...] Provider Name:Joan grajeda, 12/20/2024 09:00:00 AM, [address] [place], [address], Progress Notes * Cindi VAIL TDOB:[birth year] (42 yo F)Acc No.[id number]:12/16/2022 Progress Note Patient:?Cindi Vail T Provider:?Joan Grimaldo DPM :1980???Age:42 Y???Sex:Female D ate:12/16/2022 Address:[address] [place] [address] t [address], [place] [id number] Pcp:Hayder Alvarez MD Subjective: * Chief Complaints: [...] Grimaldo DPM Date:?03/2023 Generated for Mindy yip/Christiano/Martin on:?05/27/2024 02:31 PM EST History and Physical [...]
== END 2024-05-27 14:05 | disposition home or self-care (01) ==
LOC: HO.XRAY 14:04
PROVIDERS: PCP Internal Medicine Geriatric Medicine; Visit Provider Internal Medicine
DX: M54.9 Dorsalgia, unspecified (principal)
CPT/HCPCS: 72070

== ENCOUNTER → 2024-05-27 14:09 | Outpatient (BNV) | payer OTHER, SELFPAY | PROVIDERS: PCP Internal Medicine Geriatric Medicine; Visit Provider Radiology Diagnostic Radiology | DX: M54.9 Dorsalgia, unspecified (principal) | CPT/HCPCS: 72070 ==

== ENCOUNTER 2024-07-06 08:29 | Outpatient (REF) | payer OTHER, SELFPAY ==
--- OUTSIDE RECORDS SUMMARY | 2024-07-06 10:54 | XMS_ITS | Encounter Summary ---
Author Organization [employer] Address [address] [place] [address] 7t [place] [address] Care Team Providers Care Acidizer Water Well Name Role Phone Name, Hayder NOVAK Primary Care Provider [phone] Encounter Details Date Type Department Care Team (Latest Contact Info) Description 09/10/2018 Abstract [facility] CONVERSIONS Dental, Provider, DDS Social History [...] 07/19/2024 9:00 AM EDT Office Visit [facility] MEDICINE 230 [place] [address] NameHayder MD 230 [place] [address] documented as of this encounter Visit Diagnoses Not on filedocumented in this encounter Care Teams Acidizer Water Well Relationship Specialty Start Date End Date Hayder Alvarez MD 230 [place] [address] PCP - General Family Medicine 09/23/19 documented as of this encounter
--- OUTSIDE RECORDS SUMMARY | 2024-07-06 10:54 | XMS_ITS | Encounter Summary ---
Author Organization [employer] Address [address] [facility] 7t [place] [address] Care Team Providers Care Color Straining Bag Washer Name Role Phone Name, Hayder NOVAK Primary Care Provider [phone] Reason for Visit * Reason Comments Med Refill Encounter Details Date Type Department Care Team ([facility] st Contact Info) Description 03/24/[address] [facility] MEDICINE 230 [place], [place] [phone] Name, MD Hayder 230 [place] [address] Social History Tobacco Use Types Packs/Day Years [...] 07/19/2024 9:00 AM EDT Office Visit [facility] MEDICINE [address] [place] [address] NameHayder MD 230 [place] [address] documented as of this encounter Visit Diagnoses Not on filedocumented in this encounter Additional Health Concerns Assessment Noted Time PHQ-9 Depression Total Score: 0 08/27/19 23 9:25 AM EDT documented as of this encounter Care Teams Color Straining Bag Washer Relationship Specialty Start Date End Date Name, MD Hayder [address] [place] [address] PCP - General Family Medicine 09/23/19 documented as of this encounter
--- OUTSIDE RECORDS SUMMARY | 2024-07-06 10:54 | XMS_ITS | Encounter Summary ---
Author Organization [employer] Address [address] [facility] 7t [place] [address] Care Team Providers Care Golf Club Facer Name Role Phone Name, Hayder NOVAK Primary Care Provider [phone] Reason for Visit * Reason Comments Med Refill Encounter Details Date Type Department Care Team ([facility] st Contact Info) Description 08/11/2022 Refill [facility] MEDICINE 230 [place] [address] Name, MD Hayder 230 [place] [address] Anxiety; Insomnia, unspecified type Social History Tobacco [...] 07/19/2024 9:00 AM EDT Office Visit [facility] MEDICINE [address] [place] [address] Name, MD Hayder [address] [place] [address] documented as of this encounter Visit Diagnoses Diagnosis Anxiety Anxiety state, unspecified Insomnia, unspecified type documented in this encounter Care Teams Golf Club Facer Relationship Specialty Start Date End Date Name, MD Hayder [address] [place] [address] PCP - General Family Medicine 09/23/19 documented as of this encounter
--- OUTSIDE RECORDS SUMMARY | 2024-07-06 10:54 | XMS_ITS | Encounter Summary ---
Author Organization [employer] Address [address] [place] [address] 7t [place] [address] Care Team Providers Care Accounts Receivable Manager Name Role Phone Name, Hayder NOVAK Primary Care Provider [phone] Encounter Details Date Type Department Care Team (Latest Contact Info) Description 01/23/2021 Abstract [facility] CONVERSIONS Dental, Provider, DDS Social History [...] Description 07/19/2024 9:00 AM EDT Office Visit [facility] MEDICINE 230 [place] [address] NameHayder MD 230 [place] [address] documented as of this encounter Visit Diagnoses Not on filedocumented in this encounter Care Teams Accounts Receivable Manager Relationship Specialty Start Date End Date Hayder Alvarez MD 230 [place] [address] PCP - General Family Medicine 09/23/19 documented as of this encounter
--- OUTSIDE RECORDS SUMMARY | 2024-07-06 10:54 | XMS_ITS | Encounter Summary ---
Author Organization [facility] Address [address] [place] [address] 7t [place] [address] Care Team Providers Care Dental Scheduling Coordinator Name Role Phone Name, Hayder NOVAK Primary Care Provider [phone] Encounter Details Date Type Department Care Team ([facility] Contact Info) Description 04/29/2022 Orders Only [facility] MEDICINE [address] [place] [phone] Rosio Morales LPN Social History Tobacco Use [...] Description 07/19/2024 9:00 AM EDT Office Visit [facility] MEDICINE [address] [place] [phone] Hayder Alvarez MD 230 [place] [address] documented as of this encounter Visit Diagnoses Not on filedocumented in this encounter Care Teams Dental Scheduling Coordinator Relationship Specialty Start Date End Date Hayder Alvarez MD 230 [place] [address] PCP - General Family Medicine 09/23/19 documented as of this encounter
--- OUTSIDE RECORDS SUMMARY | 2024-07-06 10:54 | XMS_ITS | Encounter Summary ---
Author Organization [employer] Address [address] [facility] 7t [place] [address] Care Team Providers Care Paper And Prints Restorer Name Role Phone Name, Hayder NOVAK Primary Care Provider [phone] Reason for Visit * Reason Comments Med Refill Encounter Details Date Type Department Care Team ([facility] st Contact Info) Description 04/03/2023 Refill [facility] MEDICINE 230 [place], [place] [phone] Name, MD Hayder 230 [place] [address] Asthma, unspecified asthma severity, unspecified whether complicated, [...] Description 07/19/2024 9:00 AM EDT Office Visit [facility] MEDICINE [address] [place] [address] Name, MD Hayder [address] [place] [address] documented as of this encounter Visit Diagnoses Diagnosis Asthma, unspecified asthma severity, unspecified whether complicated, unspecified whether persistent documented in this encounter Additional Health Concerns Assessment Noted Time PHQ-9 Depression Total Score: 0 08/27/19 23 9:25 AM EDT documented as of this encounter Care Teams Paper And Prints Restorer Relationship Specialty Start Date End Date NameHayder MD [address] [place] [address] PCP - General Family Medicine 09/23/19 documented as of this encounter
--- OUTSIDE RECORDS SUMMARY | 2024-07-06 10:54 | XMS_ITS | Encounter Summary ---
Author Organization [employer] Address [address] [place] [address] 7t [place] [address] Care Team Providers Care Commercial Real Estate Assistant Name Role Phone Name, Hayder NOVAK Primary Care Provider [phone] Encounter Details Date Type Department Care Team (Late st Contact Info) Description 01/07/2023 Abstract [facility] MEDICINE 230 [place], [place] [phone] Pauline Walton Social History Tobacco Use Types [...] Office Visit [facility] MEDICINE 230 [place], [place] [phone] Name, MD Hayder 230 [place] [address] documented as of this encounter Visit Diagnoses Not on filedocumented in this encounter Additional Health Concerns Assessment Noted Time PHQ-9 Depression Total Score: 0 08/27/19 23 9:25 AM EDT documented as of this encounter Care Teams Commercial Real Estate Assistant Relationship Specialty Start Date End Date Name, MD Hayder 230 [place] [address] PCP - General Family Medicine 09/23/19 documented as of this encounter
--- OUTSIDE RECORDS SUMMARY | 2024-07-06 10:54 | XMS_ITS | Encounter Summary ---
Author Organization [employer] Address [address] [place] [address] 7t [place] [address] Care Team Providers Care Landscape Foreman Name Role Phone Name, Hayder NOVAK Primary Care Provider [phone] Encounter Details Date Type Department Care Team (Late st Contact Info) Description 08/22/2022 Abstract [facility] MEDICINE [address] [place] [address] NameHayder MD [address] [place] [address] Social History Tobacco Use Types Packs/Day Years [...] Description 07/19/2024 9:00 AM EDT Office Visit [facility] MEDICINE [address] [place] [address] NameHayder MD [address] [place] [phone] documented as of this encounter Visit Diagnoses Not on filedocumented in this encounter Care Teams Landscape Foreman Relationship Specialty Start Date End Date Name, MD Hayder [address] [place] [address] PCP - General Family Medicine 09/23/19 documented as of this encounter
--- OUTSIDE RECORDS SUMMARY | 2024-07-06 10:54 | XMS_ITS | Clinical Summary ---
Author Organization [employer] Address [address] [place] [address] 7 [place] [address] Care Team Providers Care Stippler Name Role Phone Name, Hayder NOVAK Primary Care Provider [phone] Allergies Active Allergy Reactions Criticality Noted Date [...] Type Department Care Team Description 06/30/2024 Refill [facility] MEDICINE 230 [place] [address] Name, MD Hayder 06/07/2024 Telephone [facility] MEDICINE [address] [place] [address] Name, MD Cedrick Singletary and [facility] (Pad, bladder control moderate) 06/02/2024 Telephone [facility] [address] [place] [address] Carolina Layton, JOHNY Results; Plan of care 05/31/2024 Orders Only [facility] MEDICINE [address] [place] [address] Rosemary Tran MD Spina bifida of thoracolumbar region, unspecified hydrocephalus presence (CMS/HCC) (Primary Dx); Mid back pain on left side 05/24/2024 5:20 PM EST Office Visit [facility] [address] [place] [address] Rosemary Tran MD Mid back pain on left side (Primary Dx); Viral upper respiratory tract infection 05/09/2024 Telephone [facility] MEDICINE [address] [place] [address] Hayder Alvarez MD Durable Medical Equipment (Incont pad) 05/04/2024 10:30 AM EST Office Visit [address] [address] Hayder Alvarez MD Migraine without aura and without status migrainosus, not intractable (Primary Dx); Chronic neck pain 04/21/2024 Telephone [facility] MEDICINE [address] [place] [address] Kaela Sood RN 04/20/[address] [address] Hayder Alvarez MD Med Refill 04/11/2024 Orders Only [facility] External Provider, [facility] from Last 3 Months Immunizations Name [...] Description 07/19/2024 9:00 AM EDT Office Visit [facility] MEDICINE [address] [place] [address] Name, MD Hayder 230 [place] [address] Health Maintenance Due Date Last Done Comments [...] EST Narrative 05/31/2024 10:05 AM EST ? [facility] ?[address] ?[place] [address] ?XRay Report ? Signed ? Patient: Cindi Murdock ?MR#: [id number] ?? [id number] ? : 1980 ?Acct:[id number] ? Age/Sex: 43 / F ?ADM Date: 05/27/24 ? Loc: HO.XRAY ? Attending Dr: Rosemary Tran MD ? Ordering Physician: Rosemary Tran MD ?? Date of Service: 05/27/24 ?? Procedure(s): XR thoracic spine 2V ?? Accession Number(s): [id number] ? cc: Rosemary Tran MD; Name,Hayder NOVAK [...] DD/ 1518 ? TD/TT: 05/27/24 1526 ? Technical Sourcing Recruiter: ? Procedure Note Jn, Da - 05/31/[address] [place] [address] XRay Report Signed Patient: Carleen Murdock#: [id number] : 1980Acct:[id number] Age/Sex: 43 / FADM Date: 05/27/24 Loc: HO.XRAY Attending Dr: Rosemary Tran MD Ordering Physician: Rosemary Tran MD Date of Service: 05/27/24 Procedure(s): XR thoracic spine 2V Accession Number(s): [id number] cc: Rosemary Tran MD; Name,Hayder NOVAK EXAMINATION: [...] 05/31/24 1000 DD/ 1518 TD/TT: 05/27/24 1526 Technical Sourcing Recruiter: Rosemary Tran MD IMG XR PROCEDURES Final Result * BI Mammogram Screening Tomosynthesis Bilateral (04/11/2024 10:45 AM EST) Anatomical Region Laterality Modality Breast Bilateral Mammography 04/11/2024 10:4 5 AM EST Narrative 04/17/2024 6:00 PM EST ? [facility] ? [address] ?[place] [address] ? Mammography Report ? Signed ? Patient: Rajbally,Cindi ?MR#: [id number] ?? [id number] ? : 1980 ?Acct:[id number] ? Age/Sex: 43 / F ?ADM Date: 01/06/25 ? Loc: HO.MAMMO ? Attending Dr: Aram Hogan MD ? Ordering Physician: Aram Hogan MD ?Results: 1Negativ ?? e ? Date of Service: 04/11/24 ?Follow Up: 1 Year From Orig ?? inal Mammogram ? Procedure(s): MM tomosynthesis screening BI ?? Accession Number(s): [id number] ? cc: Hayder Alvarez MD; Aram Hogan [...] DD/ 1045 ? TD/TT: 04/11/24 1108 ? Technical Sourcing Recruiter: ? Procedure Note Donotuseinterpreter, Image - [facility]/17/2024 [facility] [address] [place] [address] Mammography Report Signed Patient: Carleen Murdock#: [id number] : 1980Acct:[id number] Age/Sex: 43 / FADM Date: 04/11/24 Loc: HO.MAMMO Attending Dr: Aram Hogan MD Ordering Physician: Aram Hogan MDResults: 1Negativ e Date of Service: 04/11/24Follow Up: 1 Year From Orig inal Mammogram Procedure(s): MM tomosynthesis screening BI Accession Number(s): [id number] cc: Hayder Alvarez MD; Aram Hogan MD [...] by Haleigh Jacob DO in OV> 04/17/24 6857 DD/ 1045 TD/TT: 04/11/24 1108 Technical Sourcing Recruiter: [facility] External Provider IMG BI PROCEDURES Edited Result - Final * Pap Smear (02/15/2024 9:23 AM EST) 02/15/2024 9:23 AM EST 02/15/2024 11:00 AM EST [facility] - 02/18/2024 9:42 AM EST ----- ------- Name: iCndi Murdock ?Age/Sex: 43/F ? : 1980 Unit#: [id number] ?? Attend Dr: Aram Hogan MD ?Re02/15/24 ?Status: DEP REF ? Location: HO.LNP ?Disch: ? ----- ------- SPEC : [id number] ?RECD: 02/15/24 ? STATUS: ??SOUT ? REQ NUM: [id number] ? JOHN: 02/15/24 ? SUBM DR: Aram [...] To: ?? Hayder Alvarez MD ?? [address] ?? [place] [address] ?? [phone] ?? Aram Hogan MD ?? [facility] Women[facility] Services ?? [address] [facility] [address] ?? [place] [address] ?? [phone] ----- ------- Signed (signature on file) RICHARD Zelaya (ASCP) 02/18/24 0942 ? ----- ------- ? END OF REPORT ? us Generic External Data Provider LAB CYTOLOGY NUZHATE YUDITHJOSELUIS Final Result [facility] [address] [place] [address] [phone] * (ABNORMAL) Lipid Panel, Standard (02/17/2023 9:08 AM EST) Triglycerides 56 <150 mg/dL [facility] Comment:Desirable Triglyceri de: less than 150 mg/dLBorderline High Triglyceride 150-199 mg/dLHigh Triglyceride: 200-499 mg/dLVery High Triglyceride: greater than or equal to 5OO mg/dL Cholesterol 188 <200 mg/dL [facility] Comment:Desirable Cholestero l: less than 200 mg/dLBorderline High Cholesterol: 200-239 mg/dLHigh Cholesterol: greater than 239 mg/dL LDL Cholesterol Calculated 122(H) <100 mg/dL [facility] Comment:Desirable LDL: less than 100 mg/dLNear Optimal/Above Optimal LDL: 110- 129 mg/dLBorderline High LDL: 130-159 mg/dLHigh LDL: 160-189 mg/dLVery High LDL: greater than or equal to 190 mg/dL HDL Cholesterol 55 >40 mg/dL [facility] Comment:Desirable HDL: great er than 40 mg/dL Note: This HDL assay may give artificially low results in patients with liver disease. Blood Venous blood specimen / Unknown 02/17/2023 9:08 AM EST 02/17/2023 11:32 AM EST Hayder Alvarez MD LAB BLOOD ORDERABLES Final Resul t [facility] [address] [place] [address] [phone] * (ABNORMAL) Pap Smear (06/17/2021) Pap Negative for intraephithelial lesion or malignancy Negative for intraephithelial lesion or malignancy, Other HPV Detected Comment:HPV mRNA E6/E7 rflx 06/17/2021 Aram Hogan MD HEALTH MAINTENANCE Final Result from Last 3 Months or Most Recently Relevant to Health Maintenance Insurance [facility] Care Teams Stippler Relationship Specialty Start Date End Date Name, MD Hayder [address] [place] [address] PCP - General Family Medicine 09/23/19
--- OUTSIDE RECORDS SUMMARY | 2024-07-06 10:54 | XMS_ITS | Encounter Summary ---
Author Organization [employer] Address [address] [facility] 7t [place] [address] Care Team Providers Care Casino Surveillance Officer Name Role Phone Name, Hayder NOVAK Primary Care Provider [phone] Encounter Details Date Type Department Care Team ([facility] Contact Info) Description 08/25/2022 Abstract [facility] MEDICINE [address] [place], [place] [phone] Name, MD Hayder [address] [place] [address] Social History Tobacco Use Types Packs/Day Years [...] Upcoming Encounters Date Type Department Care Team ([facility] Contact Info) Description 07/19/2024 9:00 AM EDT Office Visit [facility] MED[facility]INE [address] [facility] [place] [address] Name, MD Hayder [facility] [place] [address] documented as of this encounter Procedures Procedure Name Priority Date/Time Associated Diagnosis Comments PAP/HPV Routine 06/17/2021 12:00 AM EDT documented in this encounter Results * Pap Smear (06/17/2021 12:00 AM EDT) Historical Provider HEALTH MAINTENANCE Final Result documented in this encounter Visit Diagnoses Not on filedocumented in this encounter Care Teams Casino Surveillance Officer Relationship Specialty Start Date End Date Name, MD Hayder [facility] [place] [address] PCP - General Family Medicine 09/23/19 documented as of this encounter
--- OUTSIDE RECORDS SUMMARY | 2024-07-06 10:54 | XMS_ITS | Encounter Summary ---
Author Organization [employer] Address [address] [place] [address] 7t [place] [address] Care Team Providers Care Composition Siding Worker Name Role Phone NameHayder MD Primary Care Provider [phone] Reason for Visit * Reason Onset Date Comments Med Refill Too soon for Ambien Refill 04/29/2022 Refil l Due 05/07/22 Encounter Details Date Type Department Care Team ([facility] Contact Info) Description 04/29/2022 Refill [facility] MEDICINE [address] [place] [id number] Hayder Alvarez MD [address] [place] [address] [phone] Social History Tobacco Use Types Packs/Day Years [...] 9:00 AM EDT Office Visit [facility] MEDICINE [address] [place] [phone] NameHayder MD [address] [place] [address] documented as of this encounter Visit Diagnoses Not on filedocumented in this encounter Care Teams Composition Siding Worker Relationship Specialty Start Date End Date Name, MD Hayder [address] [place] [address] PCP - General Family Medicine 09/23/19 documented as of this encounter
== END 2024-07-06 08:30 | disposition home or self-care (01) ==
LOC: HO.LNP 08:29
PROVIDERS: PCP Internal Medicine Geriatric Medicine; Visit Provider Obstetrics & Gynecology
DX: N93.9 Abnormal uterine and vaginal bleeding, unspecified (principal); Z32.02 Encounter for pregnancy test, result negative
CPT/HCPCS: 58100; 81025; 88305

== ENCOUNTER 2024-07-06 08:29 | Outpatient (AMB) | payer OTHER, SELFPAY ==
--- OUTSIDE RECORDS SUMMARY | 2024-07-06 08:49 | XMS_ITS ---
Author Organization [facility] Address [address] [facility] [place] [address] Care Team Providers Care Livestock Farm Manager Name Role Phone Name Hayder NOVAK Primary Care Provider Joan Torrez Unavailable [phone] Allergies Allergen (clinical drug ingredient) Drug/Non Drug [...] 12/15/2023 Encounters Encounter Location Date Provider Diagnosis [facility] [place] [address] [place] [address] 12/15/2023 Joan Grimaldo Equinus contracture of left [...] Reason: Provider Name:Joan grajeda, 12/20/2024 09:00:00 AM, [address] [place] [address], [phone], Progress Notes * Cindi VAIL TDOB:[birth year] (43 yo F)Acc No.[id number]:12/15/2023 Progress Note Patient:?Cindi Vail T Provider:?Joan Grimaldo DPM :1980???Age:43 Y???Sex:Female D ate:12/15/2023 Address:[address] [place] [address] t [phone] Pcp:Hayder Alvarez MD Subjective: * Chief Complaints: [...] status: Completed true * Provider:?Joan Grimaldo DPM Date:?01/2024 Generated for Miladyi theodora/Christiano/Martin on:?07/06/2024 08:49 AM EDT History and Physical Notes * HPI (History [...] joint dorsiflexion ROM, knee extended , LEFT FOOTWEAR EVALUATION: good condition, exh ibit proper fit and accommodation for pedal deformities. [...]
--- OUTSIDE RECORDS SUMMARY | 2024-07-06 08:49 | XMS_ITS | Encounter Summary ---
Author Organization [facility] Address [address] [place] [address] 7t [place] [address] Care Team Providers Care Mba Internship Name Role Phone Name, Hayder NOVAK Primary Care Provider [phone] Encounter Details Date Type Department Care Team ([facility] Contact Info) Description 04/29/2022 Orders Only [facility] [address] [place] [address] [phone] Rosio Morales LPN Social History Tobacco Use [...] Description 07/19/2024 9:00 AM EDT Office Visit [facility] [address] [place] [address] [phone] Hayder Alvarez MD [address] [place] [address] documented as of this encounter Visit Diagnoses Not on filedocumented in this encounter Care Teams Mba Internship Relationship Specialty Start Date End Date Hayder Alvarez MD [address] [place] [address] PCP - General Family Medicine 09/23/19 documented as of this encounter
--- OUTSIDE RECORDS SUMMARY | 2024-07-06 08:49 | XMS_ITS | Encounter Summary ---
Author Organization [employer] Address [address] 7t [place] [address] Care Team Providers Care Circular Gang Saw Operator Name Role Phone Name, Hayder NOVAK Primary Care Provider [phone] Reason for Visit * Reason Comments Med Refill Encounter Details Date Type Department Care Team ([facility] st Contact Info) Description 03/24/2023 Refill [facility] [address] [place], [place] [phone] Name, MD Hayder [address] [place] [address] Social History Tobacco Use Types Packs/Day Years [...] Description 07/19/2024 9:00 AM EDT Office Visit [facility] [address] [place] [address] NameHayder MD [address] [place] [address] documented as of this encounter Visit Diagnoses Not on filedocumented in this encounter Additional Health Concerns Assessment Noted Time PHQ-9 Depression Total Score: 0 08/27/19 23 9:25 AM EDT documented as of this encounter Care Teams Circular Gang Saw Operator Relationship Specialty Start Date End Date Name, MD Hayder [address] [place] [address] PCP - General Family Medicine 09/23/19 documented as of this encounter
--- OUTSIDE RECORDS SUMMARY | 2024-07-06 08:49 | XMS_ITS | Clinical Summary ---
Author Organization [employer] Address [address] [place] [address] 7 [place] [address] Care Team Providers Care Sdet Name Role Phone Name, Hayder NOVAK Primary Care Provider Allergies Active Allergy Reactions Criticality Noted Date [...] intranasal route every day in each nostril 10/11/19 22 Active Vitron-C 65-125 MG tablet Take 1 tablet by mouth at bedtime. 04/08/19 23 Active traMADol (Ultram) 50 MG tablet Take 50 mg by mouth 2 times daily. 04/15/19 23 Active zolpidem (Ambien) 10 MG tablet Take 1 tablet by mouth at bed time. 01/25/20 22 Active zolpidem (Ambien) 10 MG tablet Take 10 mg by mouth at bedtime. 04/08/19 23 Active zolpidem (Ambien) 10 MG tabletIndicatio ns:Insomnia, unspecified type TAKE 1 TABLET BY MOUTH DAILY AT BEDTIME 30 tablet 2 11/15/19 23 Active QUEtiapine (SEROquel) 25 MG tabletIndicatio ns:Anxiety TAKE 1 TABLET BY MOUTH DAILY AT BEDTIME 30 tablet 2 11/15/19 23 Active baclofen (Lioresal) 10 MG tablet Take 1 tablet (10 mg) by mouth 2 times daily. 60 tablet 11 12/29/19 24 Active albuterol (2.5 MG/3ML) 0.083% nebulizer solution INHALE 1 AMPULE USING A NEBULIZER BY MOUTH EVERY 6 HOURS 90 mL 11 01/19/20 24 Active Ventolin HFA 108 (90 Base) MCG/ACT inhalerIndicati ons:Asthma, unspecified asthma severity, unspecified whether complicated, unspecified whether persistent INHALE 2 PUFFS BY MOUTH EVERY 4 TO 6 HOURS NEEDED 18 g 4 02/26/20 24 Active D3-1000 25 MCG (1000 UT) capsuleIndicati ons:Vitamin D deficiency TAKE 1 CAPSULE BY MOUTH EVERY MORNING 90 capsule 03/08/20 24 Active topiramate (Topamax) 25 MG tablet Take 1 tablet (25 mg) by mouth 2 times daily. 60 tablet 11 05/04/19 25 026 Active SUMAtriptan (Imitrex) 25 MG tablet Take 1 tablet (25 mg) by mouth 1 (one) time if needed for migraine for up to 27 doses. May repeat dose once in 2 hours if no relief. Do not exceed 2 doses in 24 hours. 9 tablet 2 05/04/19 25 Active loratadine (Claritin) 10 MG tablet TAKE 1 TABLET BY MOUTH EVERY DAY 90 tablet 07/01/19 25 Active loratadine (Claritin) 10 MG tablet TAKE 1 TABLET BY MOUTH EVERY DAY 30 tablet 3 02/08/20 24 025 Discontinued Diclofenac Sodium 1 % gel Apply 1 inch topically if needed in the morning and at bedtime (pain). 60 g 05/24/19 25 025 Active Problems Problem Noted Date Diagnosed Date [...] Encounters Date Type Department Care Team Description 06/30/2024 Refill [facility] [address] [place] [address] Name, MD Hayder 06/07/2024 Telephone [facility] [address] [place] [address] Name, MD Cedrick Singletary [employer] (Pad, bladder control moderate) 06/02/2024 Telephone [facility] [address] [place] [address] Carolina Layton, JOHNY Results; Plan of care 05/31/2024 Orders Only [facility] [address] [place] [phone] Rosemary Tran MD Spina bifida of thoracolumbar region, unspecified hydrocephalus presence (CMS/HCC) (Primary Dx); Mid back pain on left side 05/24/2024 5:20 PM EST Office Visit [facility] [address] [place] [phone] Rosemary Tran MD Mid back pain on left side (Primary Dx); Viral upper respiratory tract infection 05/09/2024 Telephone [facility] [address] [place] [address] Hayder Alvarez MD Durable Medical Equipment (Incont pad) 05/04/2024 10:30 AM EST Office Visit [address] [address] Hayder Alvarez MD Migraine without aura and without status migrainosus, not intractable (Primary Dx); Chronic neck pain 04/21/2024 Telephone [facility] [address] [place] [address] Kaela Sood RN 04/20/[address] [address] Hayder Alvarez MD Med Refill 04/11/2024 Orders Only [facility] External Provider, [facility] from Last 3 Months Immunizations Name Administration [...] Description 07/19/2024 9:00 AM EDT Office Visit [facility] [address] [place] [address] Name, MD Hayder [address] [place] [address] Health Maintenance Due Date Last Done Comments [...] Procedure Name Priority Date/Time Associated Diagnosis Comments XR THORACIC SPINE 2 VIEWS Routine 05/27/2024 3:18 PM EST Mid back pain on left side BI MAMMOGRAM SCREENING TOMOSYNTHESIS BILATERAL Routine 04/11/2024 [...] Recently Relevant to Health Maintenance Results * XR Thoracic Spine 2 Views (05/27/2024 3:18 PM EST) Anatomical Region Laterality Modality Spine, T-spine Radiographic Beverley ging 05/27/2024 3:1 8 PM EST Narrative 05/31/2024 10:05 AM EST ? [facility] ?[address] ?[place] [address] ?XRay Report ? Signed ? Patient: Cindi Murdock ?MR#: [id number] ?? [id number] ? : 1980 ?Acct:[id number] ? Age/Sex: 43 / F ?ADM Date: 05/27/24 ? Loc: HO.XRAY ? Attending Dr: Rosemary Tran MD ? Ordering Physician: Rosemary Tran MD ?? Date of Service: 05/27/24 ?? Procedure(s): XR thoracic spine 2V ?? Accession Number(s): [id number] ? cc: Rosemary Tran MD; Name,Hayder NOVAK ? EXAMINATION: ?? XR THORACIC SPINE ? CLINICAL INFORMATION: ?? mid back pain on left side ? COMPARISON: ?? No prior x-ray. ?? Correlated to MRI report dated September 03, 2010. ? TECHNIQUE: ?? 3 views of the thoracic spine were obtained. ? FINDINGS: ?? No acute cortical disruption. ?? No gross malalignment. ?? No lytic or blastic lesions. ?? Endplate sclerosis and marginal osteophyte formation in the lower ?? thoracic spine. ?? Vascular clips in the left upper quadrant abdomen. Mild multilevel ?? cervical spondylosis. ? XR/XR thoracic spine 2V ?? IMPRESSION: ?? Mild multilevel lower thoracic spondylosis. No acute fracture or ?? listhesis. ? Electronically signed by: ??Eleazar Deluna MD ??05/31/2024 10:00 AM ?? EST RP ? Dictated By: ?Eleazar New MD ? Signed By: ?<Electronically signed by Eleazar Power MD in OV> ? 05/31/24 1000 ? DD/ 1518 ? TD/TT: 05/27/24 1526 ? Data Acquisition Technician: ? Procedure Note Jn, Da - 05/31/[address] [place] [address] XRay Report Signed Patient: Carleen Murdock#: [id number] : 1980Acct:[id number] Age/Sex: 43 / FADM Date: 05/27/24 Loc: HO.XRAY Attending Dr: Rosemary Tran MD Ordering Physician: Rosemary Tran MD Date of Service: 05/27/24 Procedure(s): XR thoracic spine 2V Accession Number(s): [id number] cc: Rosemary Tran MD; Name,Hayder NOVAK EXAMINATION: XR THORACIC SPINE CLINICAL INFORMATION: mid back pain on left side COMPARISON: No prior x-ray. Correlated to MRI report dated September 03, 2010. TECHNIQUE: 3 views of the thoracic spine were obtained. FINDINGS: No acute cortical disruption. No gross malalignment. No lytic or blastic lesions. Endplate sclerosis and marginal osteophyte formation in the lower thoracic spine. Vascular clips in the left upper quadrant abdomen. Mild multilevel cervical spondylosis. XR/XR thoracic spine 2V IMPRESSION: Mild multilevel lower thoracic spondylosis. No acute fracture or listhesis. Electronically signed by: Eleazar Deluna MD 05/31/2024 10:00 AM EST Dictated By: Eleazar New MD Signed By: <Electronically signed by Eleazar Power MDin OV> 05/31/24 1000 DD/ 1518 TD/TT: 05/27/24 1526 Data Acquisition Technician: Rosemary Tran MD IMG XR PROCEDURES Final Result * BI Mammogram Screening Tomosynthesis Bilateral (04/11/2024 10:45 AM EST) Anatomical Region Laterality Modality Breast Bilateral Mammography 04/11/2024 10:4 5 AM EST Narrative 04/17/2024 6:00 PM EST ? [facility] ? [address] ?[place] [address] ? Mammography Report ? Signed ? Patient: Rajbally,Cindi ?MR#: [id number] ?? [id number] ? : 1980 ?Acct:[id number] ? Age/Sex: 43 / F ?ADM Date: 01/06/25 ? Loc: HO.MAMMO ? Attending Dr: Aram Hogan MD ? Ordering Physician: Aram Hogan MD ?Results: 1Negativ ?? e ? Date of Service: 04/11/24 ?Follow Up: 1 Year From Orig ?? inal Mammogram ? Procedure(s): MM tomosynthesis screening BI ?? Accession Number(s): [id number] ? cc: Hayder Alvarez MD; Aram Hogan [...] DD/ 1045 ? TD/TT: 04/11/24 1108 ? Data Acquisition Technician: ? Procedure Note Donotuseinterpreter, Image - [facility] [address] [place] [address] Mammography Report Signed Patient: Carleen Murdock#: [id number] : 1980Acct:[id number] Age/Sex: 43 / FADM Date: 04/11/24 Loc: HO.MAMMO Attending Dr: Aram Hogan MD Ordering Physician: Aram Hogan MDResults: 1Negativ e Date of Service: 04/11/24Follow Up: 1 Year From Orig inal Mammogram Procedure(s): MM tomosynthesis screening BI Accession Number(s): [id number] cc: Hayder Alvarez MD; Aram Hogan MD [...] by Haleigh Jacob DO in OV> 04/17/24 9247 DD/ 1045 TD/TT: 04/11/24 1108 Data Acquisition Technician: [facility] External Provider IMG BI PROCEDURES Edited Result - Final * Pap Smear (02/15/2024 9:23 AM EST) 02/15/2024 9:23 AM EST 02/15/2024 11:00 AM EST [facility] - 02/18/2024 9:42 AM EST ----- ------- Name: Cindi Murdock ?Age/Sex: 43/F ? : 1980 Unit#: [id number] ?? Attend Dr: Aram Hogan MD ?Re02/15/24 ?Status: DEP REF ? Location: HO.LNP ?Disch: ? ----- ------- SPEC : [id number] ?RECD: 02/15/24 ? STATUS: ??SOUT ? REQ NUM: [id number] ? JOHN: 02/15/24 ? SUBM DR: Aram Hogna MD ? ENTERED: ??02/15/24 ?SP TYPE: Pap [...] Material Received ?? ThinPrep-Cervical Copies To: ?? Hayder Alvarez MD ?? [address] ?? [place] [address] ?? [phone] ?? Aram Hogan MD ?? [facility] ?? [address] [facility] [address] ?? [place] [address] ?? [phone] ----- ------- Signed (signature on file) RICHARD Zelaya (ASCP) 02/18/24 0942 ? ----- ------- ? END OF REPORT ? us Generic External Data Provider LAB CYTOLOGY NUZHATE YUDITHJOSELUIS Final Result [facility] [address] [place] [address] [phone] * (ABNORMAL) Lipid Panel, Standard (02/17/2023 9:08 AM EST) Triglycerides 56 <150 mg/dL [facility] Comment:Desirable Triglyceri de: less than 150 mg/dLBorderline High Triglyceride 150-199 mg/dLHigh Triglyceride: 200-499 mg/dLVery High Triglyceride: greater than or equal to 5OO mg/dL Cholesterol 188 <200 mg/dL [facility] Comment:Desirable Cholestero l: less than 200 mg/dLBorderline High Cholesterol: 200-239 mg/dLHigh Cholesterol: greater than 239 mg/dL LDL Cholesterol Calculated 122(H) <100 mg/dL [facility] Comment:Desirable LDL: less than 100 mg/dLNear Optimal/Above Optimal LDL: 110- 129 mg/dLBorderline High LDL: 130-159 mg/dLHigh LDL: 160-189 mg/dLVery High LDL: greater than or equal to 190 mg/dL HDL Cholesterol 55 >40 mg/dL [facility] Comment:Desirable HDL: great er than 40 mg/dL Note: This HDL assay may give artificially low results in patients with liver disease. Blood Venous blood specimen / Unknown 02/17/2023 9:08 AM EST 02/17/2023 11:32 AM EST Hayder Alvarez MD LAB BLOOD ORDERABLES Final Resul t [facility] [address] [place] [address] [phone] * (ABNORMAL) Pap Smear (06/17/2021) Pap Negative for intraephithelial lesion or malignancy Negative for intraephithelial lesion or malignancy, Other HPV Detected Comment:HPV mRNA E6/E7 rflx 06/17/2021 Aram Hogan MD HEALTH MAINTENANCE Final Result from Last 3 Months or Most Recently Relevant to Health Maintenance Insurance [facility] Care Teams Sdet Relationship Specialty Start Date End Date Name, MD Hayder [address] [place] [phone] PCP - General Family Medicine 09/23/19
--- OUTSIDE RECORDS SUMMARY | 2024-07-06 08:49 | XMS_ITS | Encounter Summary ---
Author Organization [employer] Address [address] [place] [address] 7t [place] [address] Care Team Providers Care Derivatives Trader Name Role Phone Name, Hayder NOVAK Primary Care Provider [phone] Encounter Details Date Type Department Care Team (Late st Contact Info) Description 01/07/2023 Abstract [facility] [address] [place], [place] [phone] Pauline Walton Social History Tobacco Use Types [...] Description 07/19/2024 9:00 AM EDT Office Visit [facility] [address] [place], [place] [phone] Name, MD Hayder [address] [place] [address] documented as of this encounter Visit Diagnoses Not on filedocumented in this encounter Additional Health Concerns Assessment Noted Time PHQ-9 Depression Total Score: 0 08/27/19 23 9:25 AM EDT documented as of this encounter Care Teams Derivatives Trader Relationship Specialty Start Date End Date Name, MD Hayder [address] [place] [address] PCP - General Family Medicine 09/23/19 documented as of this encounter
--- OUTSIDE RECORDS SUMMARY | 2024-07-06 08:49 | XMS_ITS | Encounter Summary ---
Author Organization [employer] Address [address] [place] [address] 7t [place] [address] Care Team Providers Care Paper Rewinder Operator Name Role Phone Name, Hayder NOVAK Primary Care Provider Encounter Details Date Type Department Care Team (Latest Contact Info) Description 01/23/2021 Abstract [facility] CONVERSIONS Dental, Provider, DDS Social History Tobacco [...] Description 07/19/2024 9:00 AM EDT Office Visit [facility] [address] [place] [address] NameHayder MD [address] [place] [address] documented as of this encounter Visit Diagnoses Not on filedocumented in this encounter Care Teams Paper Rewinder Operator Relationship Specialty Start Date End Date Hayder Alvarez MD [address] [place] [address] PCP - General Family Medicine 09/23/19 documented as of this encounter
--- OUTSIDE RECORDS SUMMARY | 2024-07-06 08:49 | XMS_ITS | Encounter Summary ---
Author Organization [employer] Address [address] [place] [address] 7t [place] [address] Care Team Providers Care Paper Cup Machine Operator Name Role Phone NameHayder MD Primary Care Provider [phone] Reason for Visit * Reason Onset Date Comments Med Refill Too soon for Ambien Refill 04/29/2022 Refil l Due 05/07/22 Encounter Details Date Type Department Care Team ([facility] Contact Info) Description 04/29/2022 Refill [facility] [address] [place] [address] Hayder Alvarez MD [address] [place] [address] [phone] Social History Tobacco Use Types Packs/Day Years [...] Description 07/19/2024 9:00 AM EDT Office Visit [facility] [address] [place] [address] NameHayder MD [address] [place] [address] documented as of this encounter Visit Diagnoses Not on filedocumented in this encounter Care Teams Paper Cup Machine Operator Relationship Specialty Start Date End Date Name, MD Hayder [address] [place] [address] PCP - General Family Medicine 09/23/19 documented as of this encounter
--- OUTSIDE RECORDS SUMMARY | 2024-07-06 08:49 | XMS_ITS | Encounter Summary ---
Author Organization [employer] Address [address] [facility] 7t [place] [address] Care Team Providers Care Specialty Cook Name Role Phone Name, Hayder NOVAK Primary Care Provider Reason for Visit * Reason Comments Med Refill Encounter Details Date Type Department Care Team ([facility] st Contact Info) Description 08/11/[address] [facility] [address] [place] [address] Name, MD Hayder [address] [place] [address] Anxiety; Insomnia, unspecified type Social History Tobacco [...] Description 07/19/2024 9:00 AM EDT Office Visit [facility] [address] [place] [address] Name, MD Hayder [address] [place] [address] documented as of this encounter Visit Diagnoses Diagnosis Anxiety Anxiety state, unspecified Insomnia, unspecified type documented in this encounter Care Teams Specialty Cook Relationship Specialty Start Date End Date Name, MD Hayder [address] [place] [address] PCP - General Family Medicine 09/23/19 documented as of this encounter
--- OUTSIDE RECORDS SUMMARY | 2024-07-06 08:49 | XMS_ITS | Patient Health Record ---
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) Active confirmed Problem 162191260 Hammer toe of right foot (M20.41) Active confirmed Problem 127309386 Hammer toe of left foot (M20.42) Active confirmed Problem 33987680 Gait abnormality (R26.9) Active confirmed Problem 157793177 Equinus contracture of left ankle (M24.572) Active confirmed Problem 47648278 Spina bifida, unspecified hydrocephalus presence, unspecified spinal region (Q05.9) Active confirmed Vital Signs Height 5ft1in in 12/15/2023 Weight 175 lbs 12/15/2023 BMI 33.06 kg/m2 12/15/2023 Encounters Encounter Location Date Provider Diagnosis [facility] [place] [address] [place] [address] 12/15/2023 Joan Grimaldo Equinus contracture of left [...] Name:Joan Johann grajeda, 12/20/2024 09:00:00 AM, [address] [place], [address], Insurance Providers Payer Name Payer Address Payer Phone Subscriber Number Group Number Insured Name Patient Relationship to Insured Coverage Start Date Coverage End Date [facility] [employer] Claims [address] [place] [id number] Cindi Murdock Self - patient is the insured Medical (General) History Medical History History ICD Code Anxiety Arthritis asthma Back,Hip,and Knee pain Broken bones covid-19 Macular degeneration Migraines Reflux ( GERD) Seizures Spina bifida uterine bleeding Surgical History Surgery Date(Month/Year) gastric bypass arm
--- OUTSIDE RECORDS SUMMARY | 2024-07-06 08:49 | XMS_ITS | Encounter Summary ---
Author Organization [employer] Address [address] [place] [address] 7t [place] [address] Care Team Providers Care Scheduler Name Role Phone Name, Hayder NOVAK Primary Care Provider [phone] Encounter Details Date Type Department Care Team (Late st Contact Info) Description 08/22/2022 Abstract [facility] MEDICINE [address] [place] [address] NameHayder MD [address] [place] [phone] Social History Tobacco Use Types Packs/Day Years [...] Description 07/19/2024 9:00 AM EDT Office Visit [facility] [address] [place] [address] NameHayder MD [address] [place] [address] [phone] documented as of this encounter Visit Diagnoses Not on filedocumented in this encounter Care Teams Scheduler Relationship Specialty Start Date End Date Name, MD Hayder [address] [place] [address] PCP - General Family Medicine 09/23/19 documented as of this encounter
--- OUTSIDE RECORDS SUMMARY | 2024-07-06 08:49 | XMS_ITS | Encounter Summary ---
Author Organization [employer] Address [address] [facility] 7t [place] [address] Care Team Providers Care Wringer And Setter Name Role Phone Name, Hayder NOVAK Primary Care Provider [phone] Reason for Visit * Reason Comments Med Refill Encounter Details Date Type Department Care Team ([facility] st Contact Info) Description 04/03/2023 Refill [facility] [address] [place], [place] [phone] Name, MD Hayder [address] [place] [address] Asthma, unspecified asthma severity, unspecified whether complicated, [...] Description 07/19/2024 9:00 AM EDT Office Visit [facility] [address] [place] [address] Name, MD Hayder [address] [place] [address] documented as of this encounter Visit Diagnoses Diagnosis Asthma, unspecified asthma severity, unspecified whether complicated, unspecified whether persistent documented in this encounter Additional Health Concerns Assessment Noted Time PHQ-9 Depression Total Score: 0 08/27/19 23 9:25 AM EDT documented as of this encounter Care Teams Wringer And Setter Relationship Specialty Start Date End Date NameHayder MD [address] [place] [address] PCP - General Family Medicine 09/23/19 documented as of this encounter
--- OUTSIDE RECORDS SUMMARY | 2024-07-06 08:49 | XMS_ITS | Encounter Summary ---
Author Organization [employer] Address [address] [place] [address] 7t [place] [address] Care Team Providers Care Occupational Therapy Professor Name Role Phone Name, Hayder NOVAK Primary Care Provider [phone] Encounter Details Date Type Department Care Team (Latest Contact Info) Description 09/10/2018 Abstract [facility] CONVERSIONS Dental, Provider, DDS Social History [...] Description 07/19/2024 9:00 AM EDT Office Visit [facility] [address] [place] [address] NameHyader MD [address] [place] [address] documented as of this encounter Visit Diagnoses Not on filedocumented in this encounter Care Teams Occupational Therapy Professor Relationship Specialty Start Date End Date Hayder Alvarez MD [address] [place] [address] PCP - General Family Medicine 09/23/19 documented as of this encounter
--- OUTSIDE RECORDS SUMMARY | 2024-07-06 08:49 | XMS_ITS | Encounter Summary ---
Author Organization [employer] Address [address] [facility] 7t [place] [address] Care Team Providers Care Applications Tester Name Role Phone Name, Hayder NOVAK Primary Care Provider [phone] Encounter Details Date Type Department Care Team ([facility] Contact Info) Description 08/25/2022 Abstract [facility] MEDICINE [address] [place], [place] [phone] Name, MD Hayder 230 [place] [address] Social History Tobacco Use Types Packs/Day Years [...] Upcoming Encounters Date Type Department Care Team ([facility] Contact Info) Description 07/19/2024 9:00 AM EDT Office Visit [facility] MEDICINE [address] [facility] [place] [address] Name, MD Hayder Sergei [facility] [place] [address] documented as of this encounter Procedures Procedure Name Priority Date/Time Associated Diagnosis Comments PAP/HPV Routine 06/17/2021 12:00 AM EDT documented in this encounter Results * Pap Smear (06/17/2021 12:00 AM EDT) Historical Provider HEALTH MAINTENANCE Final Result documented in this encounter Visit Diagnoses Not on filedocumented in this encounter Care Teams Applications Tester Relationship Specialty Start Date End Date Name, MD Hayder Sergei [facility] [place] [address] PCP - General Family Medicine 09/23/19 documented as of this encounter
--- NOTE | 2024-07-06 09:07 | MHC.OFFVIS ---
Vital Signs 07/06/24 09:11 Height 5 ft 1 in Weight 191 lb BMI 36.1 BP 118/70 Intake Visit Reasons: EMB/DO NOT RS Infusion Pharmacist Required: No Information Interpreted: non-clinical & clinical Retail Sales Teammate: Retail Sales Teammate Present (Emma Shah KYAW) Accompanied by: Self / Same As Patient Allergies iodine [Iodine] Allergy (Severe, Verified 07/06/24 09:13) ANAPHYLAXIS norethandrolone [NORETHANDROLONE] Allergy (Severe, Verified 07/06/24 09:13) TRIGGERS MIGRAINES Penicillins [PENICILLINS] Allergy (Severe, Verified 07/06/24 09:13) SWELLING/RASH cyclobenzaprine [CYCLOBENZAPRINE] Allergy (Intermediate, Verified 07/06/24 09:13) H/A,PALPITATIONS latex [LATEX] Allergy (Intermediate, Verified 07/06/24 09:13) HIVES,ITCHING red dye Allergy (Verified 07/06/24 09:13) rash lactose Adverse Reaction (Verified 07/06/24 09:13) Unknown Pt state s no known food Aller Allergy (Unknown, Uncoded 07/06/24 09:13) Unknown blue dye Allergy (Uncoded 07/06/24 09:13) Rash HPI Comments Details: Presenting for EMB [facility] Medical History HPV (human papilloma virus) infection Dysfunctional uterine bleeding Seizures Spina bifida GERD (gastroesophageal reflux disease) Acute depression Hx of migraines Asthma Surgical History Hx of unilateral oophorectomy History of Lizzy-en-Y gastric bypass History of surgery on arm Family History Father DM (diabetes mellitus) Asthma CVD (cardiovascular disease) Mother HTN (hypertension) DM (diabetes mellitus) Asthma CVD (cardiovascular disease) Brother No problems noted. Brother No problems noted. Sister Uterine cancer Sister No problems noted. Social History Alcohol intake: never Patient Tobacco Use Status: Never used Tobacco Sexual orientation: Straight/Heterosexual Gender identity: Female Female Reproductive History Menstrual Age of Menarche: 9 Review of Systems Const All systems reviewed & are unremarkable except as noted in HPI and below Reports as per HPI and Reports no additional complaints GI Reports no additional complaints Reports no additional complaints Physical Exam Vital Signs: Last Vital Signs BP 118/70 07/06/24 09:11 BMI result Body Mass Index 36.1 Office Procedures Endometrial Biopsy Details: The patient was counseled regarding the indication and benefits of endometrial sampling to rule out endometrial pathology including not limited to endometrial hyperplasia or endometrial cancer and others; The alternatives (Either do nothing vs. hysteroscopy D&C) & the risks were discussed with the patient including but not limited: pain, uterine perforation, bleeding, infection, possible injury to bladder, bowel, ureter, possible need for blood transfusion with all its possible risks. The patient verbalized understanding all questions answered and signed consent. Urine test done in the office was negative The patient was placed into the dorsal lithotomy position; a speculum was inserted in the vagina. Using aseptic technique for the procedure, the cervix was cleansed with Betadine. The anterior lip of the cervix was grasped with a single tooth tenaculum. The uterus was sounded to 7 cm with a 4 mm Pipelle was used, samples from both sides of the uterine cavities right and left worse taken since the patient has an arcuate uterine. Tissues samples were obtained and placed in formalin, in a patient labeled container and sent to the pathology department. At the end of the procedure, there was minimal bleeding noted The patient tolerated the procedure well and was discharged in good condition with the following instructions: Nothing in the vagina until the bleeding stops. No sex until the bleeding stops, to call if any of the following occurs: fever (>100.4), flu-like symptoms, abdominal pain, heavy bleeding, four smelling vaginal discharge. The patient was instructed to schedule a Follow up appointment in 2 weeks to discuss pathology results of the biopsy and treatment options. This note was generated with a voice recognition program. Some errors may have been overlooked during the review of this note. Sometimes these errors may affect the content or meaning of a given sentence. [id number] Biopsy Results AMB Test Urine AMB Test Urine Negative Last Edit by Emma Shah CMA on 07/06/24 09:13 Results Reviewed Results Reviewed: Laboratory Last Values Tst Clinic Negative 07/06/24 09:12 Assessment & Plan Assessment & Plan (1) Abnormal uterine bleeding (AUB): Code(s): N93.9 - Abnormal uterine and vaginal bleeding, unspecified Category: Medical Plan: EMB done, see procedure Orders: Orders AMB HCG Urine Test Today Z32.02 - Encounter for test, result negative AMB Endometrial Biopsy Today N93.9 - Abnormal uterine and vaginal bleeding, unspecified Coding Level of Care Code Procedure Only Diagnoses Abnormal uterine bleeding (AUB) N93.9 CPT Codes Endometrial Biopsy - CPT: 98403-Ppaagxtelrj Biopsy ([id number])
[2024-07-06 09:11] VITALS: BP 118/70; BMI 36.1
== END 2024-07-06 09:24 | disposition home or self-care (01) ==
LOC: HO.HWS 08:29
PROVIDERS: PCP Internal Medicine Geriatric Medicine; Visit Provider Obstetrics & Gynecology
DX: N93.9 Abnormal uterine and vaginal bleeding, unspecified (principal); Z32.02 Encounter for pregnancy test, result negative
CPT/HCPCS: 58100

== ENCOUNTER 2024-07-21 10:46 | Outpatient (AMB) | payer OTHER, SELFPAY ==
--- NOTE | 2024-07-21 10:47 | MHC.OFFVIS ---
Intake Visit Reasons: EMB results Allergies iodine [Iodine] Allergy (Severe, Verified 07/06/24 09:13) ANAPHYLAXIS norethandrolone [NORETHANDROLONE] Allergy (Severe, Verified 07/06/24 09:13) TRIGGERS MIGRAINES Penicillins [PENICILLINS] Allergy (Severe, Verified 07/06/24 09:13) SWELLING/RASH cyclobenzaprine [CYCLOBENZAPRINE] Allergy (Intermediate, Verified 07/06/24 09:13) H/A,PALPITATIONS latex [LATEX] Allergy (Intermediate, Verified 07/06/24 09:13) HIVES,ITCHING red dye Allergy (Verified 07/06/24 09:13) rash lactose Adverse Reaction (Verified 07/06/24 09:13) Unknown Pt state s no known food Aller Allergy (Unknown, Uncoded 07/06/24 09:13) Unknown blue dye Allergy (Uncoded 07/06/24 09:13) Rash HPI Comments Details: The patient scheduled a telehealth visit for follow-up to discuss the results of her abnormal uterine bleeding workup and options of treatment. The following workup was done.: H&H=10.8/34.5 TSH, prolactin, hCG, GC and chlamydia were negative. Endometrial biopsy pathology showed the following: Benign proliferative endometrium and benign endocervical glandular epithelium; no atypia or carcinoma Co testing was done was negative. Mammogram was BI-RADS 1. Pelvic ultrasound showed the following: IMPRESSION: 1. Left ovary not visualized might have been obscured by bowel gas or atrophic. 2. There are 2 endometrial canal in the fundus, consistent with septated versus arcuate uterus. 3. Exam otherwise normal [facility] Medical History HPV (human papilloma virus) infection Dysfunctional uterine bleeding Seizures Spina bifida GERD (gastroesophageal reflux disease) Acute depression Hx of migraines Asthma Surgical History Hx of unilateral oophorectomy History of Lizzy-en-Y gastric bypass History of surgery on arm Family History Father DM (diabetes mellitus) Asthma CVD (cardiovascular disease) Mother HTN (hypertension) DM (diabetes mellitus) Asthma CVD (cardiovascular disease) Brother No problems noted. Brother No problems noted. Sister Uterine cancer Sister No problems noted. Social History Alcohol intake: never Patient Tobacco Use Status: Never used Tobacco Sexual orientation: Straight/Heterosexual Gender identity: Female Female Reproductive History Menstrual Age of Menarche: 9 Review of Systems Const All systems reviewed & are unremarkable except as noted in HPI and below Reports as per HPI and Reports no additional complaints GI Reports no additional complaints Reports no additional complaints Telehealth Telehealth Telehealth Platform: Telephone Location of provider rendering services: practice address Location of patient: address on file Patient Identification confirmed using: Name, : Yes Telehealth method: video Patient verbally consented to treatment: Yes Patient verbally consented to billing insurance company: Yes Patient informed of any privacy concerns related to visit: Yes Assessment & Plan Assessment & Plan (1) Abnormal uterine bleeding (AUB): Code(s): N93.9 - Abnormal uterine and vaginal bleeding, unspecified Category: Medical Plan: Discussed with the patient the results of the work up done and options of treatment including but not limited to BCP's, cyclic Progesterone, Mirena IUD, endometrial ablation and hysterectomy. All pros, cons, risks and benefits of each option were discussed with the patient and the patient decided to go ahead with cyclic Provera, so a more detailed discussion re: Progesterone treatment including mechanism of action, benefits (regular menses, endometrial protection form unopposed estrogen and reduction in the risk of endometrial hyperplasia and/or cancer ...), risks (Thrombosis, mood changes, weight gain, breast soreness, ? increased breast ca, others). Instructions were given to use a back- up method for contraception since this is not a method control, take the medication 1 tablet daily starting day 15-24 and to schedule a 3 months follow-up appointment; patient verbalized understanding and agreed with the plan. Medications: New medroxyprogesterone (Provera) start Provera 1 tablet daily from day 15-24 cyclically every months, day 1 being 1st day of menses 10 mg PO DAILY 10 days 30 tabs 0RF Coding Level of Care Code Est Pt Level 3 (64464) Diagnoses Abnormal uterine bleeding (AUB) N93.9
--- OUTSIDE RECORDS SUMMARY | 2024-07-21 13:03 | XMS_ITS | Encounter Summary ---
Author Organization [employer] Address [address] [facility] 7t [place] [address] Care Team Providers Care Fire Control Mechanic Name Role Phone Name, Hayder NOVAK Primary Care Provider [phone] Reason for Visit * Reason Comments Med Refill Encounter Details Date Type Department Care Team ([facility] st Contact Info) Description 03/24/2023 Refill [facility] MEDICINE [address] [place], [place] [phone] Name, MD Hayder [address] [place] [address] Social History Tobacco Use Types Packs/Day Years [...] as of this encounter Plan of Treatment Not on file documented as of this encounter Visit Diagnoses Not on filedocumented in this encounter Additional Health Concerns Assessment Noted Time PHQ-9 Depression Total Score: 0 08/27/19 23 9:25 AM EDT documented as of this encounter Care Teams Fire Control Mechanic Relationship Specialty Start Date End Date Name, MD Hayder [address] [place] [address] PCP - General Family Medicine 09/23/19 documented as of this encounter
--- OUTSIDE RECORDS SUMMARY | 2024-07-21 13:03 | XMS_ITS | Encounter Summary ---
Author Organization [employer] Address [address] [place] [address] 7t [place] [address] Care Team Providers Care Senior Air Director Name Role Phone Name, Hayder NOVAK Primary Care Provider [phone] Reason for Visit * Reason Onset Date Comments Med Refill Too soon for Ambien Refill 04/29/2022 Refil l Due 05/07/22 Encounter Details Date Type Department Care Team ([facility] Contact Info) Description 04/29/2022 Refill [facility] MEDICINE [address] [place] [address] Name, MD Hayder [address] [place] [address] Social History Tobacco Use Types Packs/Day Years [...] on filedocumented in this encounter Care Teams Senior Air Director Relationship Specialty Start Date End Date Name, MD Hayder [address] [place] [address] PCP - General Family Medicine 09/23/19 documented as of this encounter
--- OUTSIDE RECORDS SUMMARY | 2024-07-21 13:03 | XMS_ITS | Encounter Summary ---
Author Organization [employer] Address [address] [place] [address] 7t [place] [address] Care Team Providers Care Primary Counselor Name Role Phone Name, Hayder NOVAK Primary Care Provider [phone] Encounter Details Date Type Department Care Team (Latest Contact Info) Description 01/23/2021 Abstract [facility], Provider, DDS Social History Tobacco [...] on filedocumented in this encounter Care Teams Primary Counselor Relationship Specialty Start Date End Date Name, MD Hayder [address] [place] [address] PCP - General Family Medicine 09/23/19 documented as of this encounter
--- OUTSIDE RECORDS SUMMARY | 2024-07-21 13:03 | XMS_ITS | Encounter Summary ---
Author Organization [employer] Address [address] [facility] 7t [place] [address] Care Team Providers Care M1A1 Tank Crewman Name Role Phone Name, Hayder NOVAK Primary Care Provider [phone] Encounter Details Date Type Department Care Team (Latest Contact Info) Description 07/19/2024 Travel Social History Tobacco Use Types Packs/Day Years Used Date Smoking Tobacco: Never Passive Smoke Exposure: Never Smokeless Tobacco: Never Alcohol Use Standard [...] not want or need it 05/2023 Comments No Sex and Gender Information Value Date Recorded [...] documented as of this encounter Care Teams M1A1 Tank Crewman Relationship Specialty Start Date End Date Name, MD Hayder [address] [place] [address] PCP - General Family Medicine 09/23/19 documented as of this encounter
--- OUTSIDE RECORDS SUMMARY | 2024-07-21 13:03 | XMS_ITS | Encounter Summary ---
Author Organization [employer] Address [address] [facility] 7t [place] [address] Care Team Providers Care Tissue Rewinder Name Role Phone Name, Hayder NOVAK Primary Care Provider [phone] Reason for Referral * Medications - Closed Specialty Diagnoses / Procedures Referred By [employer] soto Referred To Contact Diagnoses Rib pain NameHayder MD [address] [place] [address] Phone: tel: fax: Referral ID Status Reason Start Date Expiration Date Visits Re quested Visits Authorized [id number] Closed 07/19/2024 07/19/2025 1 1 Encounter Details Date Type Department Care Team ([facility] st Contact Info) Description 07/19/2024 Refill [facility] MEDICINE [address] [place], [place] [phone] Sumaya Roe RN Rib pain Social History Tobacco Use Types Packs/Day [...] encounter Miscellaneous Notes * Telephone Encounter - Sumaya Roe RN - 07/19/2024 10:50 AM EDT [facility] pt insurance will audit them and no pay forthe rx Lidocaine ointment unless the frequency is stated on the script. Mikki also states that a PAwill need to be completed for the pt. Informed Mikki will pend order to the provider for review then send a message to our PA specialist. Mikki expressed understanding and message forwarded to PCP for review. documented in this encounter Plan of Treatment Not on file documented as of this encounter Visit Diagnoses Diagnosis Rib pain Unspecified chest pain documented in this encounter Additional Health Concerns Assessment Noted Time PHQ-9 Depression Total Score: 0 09/22/19 24 11:47 AM EDT documented as of this encounter Care Teams Tissue Rewinder Relationship Specialty Start Date End Date Name, MD Hayder [address] [place] [address] PCP - General Family Medicine 09/23/19 documented as of this encounter
--- OUTSIDE RECORDS SUMMARY | 2024-07-21 13:03 | XMS_ITS | Encounter Summary ---
Author Organization [employer] Address [address] [place] [address] 7t [place] [address] Care Team Providers Care Regional Sales Coordinator Name Role Phone Name, Hayder NOVAK Primary Care Provider [phone] Encounter Details Date Type Department Care Team ([facility] st Contact Info) Description 08/25/2022 Abstract [facility] MEDICINE 230 [place], [place] [phone] Name, MD Hayder [address] [place] [address] Social History Tobacco Use Types Packs/Day Years [...] on file documented as of this encounter Procedures Procedure Name Priority Date/Time Associated Diagnosis Comments HM PAP/HPV Routine 06/17/2021 12:00 AM EDT documented in this encounter Results * Hm Pap Smear (06/17/2021 12:00 AM EDT) us Historical Provider HEALTH MAINTENANCE Final Result documented in this encounter Visit Diagnoses Not on filedocumented in this encounter Care Teams Regional Sales Coordinator Relationship Specialty Start Date End Date Name, MD Hayder [address] [place] [address] PCP - General Family Medicine 09/23/19 documented as of this encounter
--- OUTSIDE RECORDS SUMMARY | 2024-07-21 13:03 | XMS_ITS | Encounter Summary ---
Author Organization [employer] Address [address] [place] [address] 7t [place] [address] Care Team Providers Care Food Products Sales Representative Name Role Phone Name, Hayder NOVAK Primary Care Provider [phone] Encounter Details Date Type Department Care Team ([facility] st Contact Info) Description 04/29/2022 Orders Only [facility] MEDICINE [address] [place] [address] Rosio Morales LPN Social History Tobacco Use [...] on filedocumented in this encounter Care Teams Food Products Sales Representative Relationship Specialty Start Date End Date Name, MD Hayder [address] [place] [address] PCP - General Family Medicine 09/23/19 documented as of this encounter
--- OUTSIDE RECORDS SUMMARY | 2024-07-21 13:03 | XMS_ITS | Encounter Summary ---
Author Organization [employer] Address [address] [place] [address] 7t [place] [address] Care Team Providers Care Tour Agent Name Role Phone Name, Hayder NOVAK Primary Care Provider [phone] Encounter Details Date Type Department Care Team ([facility] st Contact Info) Description 08/22/2022 Abstract [facility] MEDICINE [address] [place] [address] Name, MD Hayder [address] [place] [address] Social History Tobacco Use Types Packs/Day Years [...] on filedocumented in this encounter Care Teams Tour Agent Relationship Specialty Start Date End Date NameHayder MD [address] [place] [phone] PCP - General Family Medicine 09/23/19 documented as of this encounter
--- OUTSIDE RECORDS SUMMARY | 2024-07-21 13:03 | XMS_ITS | Encounter Summary ---
Author Organization [email or web address] Address [address] [facility] 7t [place] [address] Care Team Providers Care Stereotype Caster Name Role Phone Name, Hayder NOVAK Primary Care Provider [phone] Reason for Visit * Reason Comments Med Refill Encounter Details Date Type Department Care Team ([facility] st Contact Info) Description 04/03/2023 Refill [facility] MEDICINE [address] [place], [place] [phone] Name, MD Hayder [address] [place] [address] Asthma, unspecified asthma severity, unspecified whether complicated, [...] documented as of this encounter Care Teams Stereotype Caster Relationship Specialty Start Date End Date Name, MD Hayder [address] [place] [address] PCP - General Family Medicine 09/23/19 documented as of this encounter
--- OUTSIDE RECORDS SUMMARY | 2024-07-21 13:03 | XMS_ITS | Encounter Summary ---
Author Organization [email or web address] Address [address] [facility] 7t [place] [address] Care Team Providers Care Flow Specialist Name Role Phone Name, Hayder NOVAK Primary Care Provider [phone] Reason for Visit * Reason Comments Med Refill Encounter Details Date Type Department Care Team ([facility] st Contact Info) Description 08/11/2022 Refill [facility] MEDICINE [address] [place] [address] Name, MD Hayder [address] [place] [address] Anxiety; Insomnia, unspecified type Social History Tobacco [...] type documented in this encounter Care Teams Flow Specialist Relationship Specialty Start Date End Date Name, MD Hayder [address] [place] [address] PCP - General Family Medicine 09/23/19 documented as of this encounter
--- OUTSIDE RECORDS SUMMARY | 2024-07-21 13:03 | XMS_ITS | Encounter Summary ---
Author Organization [employer] Address [address] [facility] 7t [place] [address] Care Team Providers Care Talcer Name Role Phone Name, Hayder NOVAK Primary Care Provider [phone] Reason for Visit * Reason Comments Follow-up Encounter Details Date Type Department Care Team ([facility] st Contact Info) Description 07/19/2024 9:00 AM EDT Office Visit [facility] MEDICINE [address] [place] [address] Name, MD Hayder [address] [place] [address] Psychosis, unspecified psychosis type (CMS/HCC) (Primary Dx); Anxiety; Insomnia, unspecified type; Migraine without aura and without status migrainosus, not intractable; Seasonal allergies; Rib pain Social History Tobacco Use Types [...] Sign Reading Time Taken Comments Blood Pressure 113/79 07/19/2024 9:07 AM EDT Pulse 85 07/19/2024 9:07 AM EDT Temperature 36.4 ??C (97.5 ??F) 07/19/2024 9:07 AM ED T Respiratory Rate 18 07/19/2024 9:07 AM EDT Oxygen Saturation 98% 07/19/2024 9:07 AM EDT Inhaled Oxygen Concentration - - Weight 87.3 kg (192 lb 6.4 oz) 07/19/2024 9:07 A M EDT Height 154.9 cm (5' 1 ) 07/19/2024 9:07 AM EDT Body Mass Index 36.35 07/19/2024 9:07 AM EDT documented in this encounter Progress Notes * Hayder Alvarez MD - 07/19/2024 9:00 AM EDT Subjective Patient ID: Cindi Murdock is a 43 y.o. female who presents for Follow-up. Patient comes for follow-up visit. The patient has a personal history of depression, anxiety, and history of visual and auditory hallucinations. She has a family history of schizophrenia and bipolar disorder. She is treated with Seroquel and Ambien. At the moment she has a therapist but she does not have a prescribing psychiatric provider. She requested that I refill the medications for her and Iagreed. She described very good response to both medications. She denies any hallucinations since she has been using Seroquel and no problems sleeping. She describes improvement of her migraines with the use of Topamax and I agreed to refill the medication. She has seasonal allergies and requested to refill her Claritin and I agreed. She continues to complain of occasional left lower rib cage pain. She was already seen for these complaints at walk-in clinic. She does not have any swelling or redness, no rash to suggest shingles, no history of trauma. Review of Systems Constitutional: Negative for chills and fever. HENT: Negative for sore throat. Respiratory: Negative for cough, shortness of breath and wheezing. Cardiovascular: Negative for chest pain, palpitations and leg swelling. Gastrointestinal: Negative for abdominal pain. Psychiatric/Behavioral: See HPI Visit Vitals BP 113/79 (BP Location: Left arm, Patient Position: Sitting, BP Cuff Size: Large adult) Pulse 85 Temp 97.5 ??F (36.4 ??C) (Temporal) Resp 18 Ht 5' 1 (1.549 m) Wt 192 lb 6.4 oz (87.3 kg) LMP 06/25/2024 (Exact Date) SpO2 98% BMI 36.35 kg/m?? OB Status Having periods Smoking Status Never BSA 1.94 m?? Objective Physical Exam Constitutional: Appearance: Normal appearance. Cardiovascular: Rate and Rhythm: Normal rate and regular rhythm. Heart sounds: No murmur heard. No gallop. Pulmonary: Effort: Pulmonary effort is normal. No respiratory distress. Breath sounds: Normal breath sounds. No wheezing. Chest: Chest wall: Tenderness present. No mass, deformity or swelling. Musculoskeletal: Right lower leg: No edema. Left lower leg: No edema. Neurological: Mental Status: She is alert. Assessment/Plan Diagnoses and all orders for this visit: Psychosis, unspecified psychosis type (CMS/[facility]) Comments: I agreed to refill patient's psychiatric medications. Continue counseling. She is on a waiting listto see a new psychiatrist Anxiety - QUEtiapine (SEROquel) 25 MG tablet; Take 1 tablet (25 mg) by mouth at bedtime. Insomnia, unspecified type - zolpidem (Ambien) 10 MG tablet; Take 1 tablet (10 mg) by mouth at bedtime. Migraine without aura and without status migrainosus, not intractable Comments: Well-controlled on Topamax and I refilled the medication Seasonal allergies Comments: I refilled her Claritin Rib pain Comments: Musculoskeletal pain. Unremarkable exam and no history of trauma. I recommended topical lidocaine to the affected left lower rib cage Orders: - lidocaine (Xylocaine) 5 % ointment; Apply topically if needed for mild pain or moderate pain. Other orders - topiramate (Topamax) 25 MG tablet; Take 1 tablet (25 mg) by mouth 2 times daily. - loratadine (Claritin) 10 MG tablet; Take 1 tablet (10 mg) by mouth Once per day. documented in this encounter Plan of Treatment Not on file documented as of this encounter Visit Diagnoses Diagnosis Psychosis, unspecified psychosis type (CMS/HCC)- Primary Anxiety Anxiety state, unspecified Insomnia, unspecified type Migraine without aura and without status migrainosus, not intractable Seasonal allergies Allergic rhinitis, cause unspecified Rib pain Unspecified chest pain documented in this encounter Additional Health Concerns Assessment Noted Time PHQ-9 Depression Total Score: 0 09/22/19 24 11:47 AM EDT documented as of this encounter Care Teams Talcer Relationship Specialty Start Date End Date Hayder Alavrez MD [address] [place] [address] PCP - General Family Medicine 09/23/19 documented as of this encounter
--- OUTSIDE RECORDS SUMMARY | 2024-07-21 13:03 | XMS_ITS | Encounter Summary ---
Author Organization [employer] Address [address] [place] [address] 7t [place] [address] Care Team Providers Care Leasing Associate Name Role Phone Name, Hayder NOVAK Primary Care Provider [phone] Encounter Details Date Type Department Care Team ([facility] st Contact Info) Description 01/07/2023 Abstract [facility] MEDICINE 230 [place], [place] [phone] Pauline Walton Social History Tobacco Use Types [...] Time PHQ-9 Depression Total Score: 0 08/27/19 9:25 AM EDT documented as of this encounter Care Teams Leasing Associate Relationship Specialty Start Date End Date Name, MD Hayder [address] [place] [address] PCP - General Family Medicine 09/23/19 documented as of this encounter
--- OUTSIDE RECORDS SUMMARY | 2024-07-21 13:03 | XMS_ITS | Clinical Summary ---
Author Organization [employer] Address [address] [place] [address] 7 [place] [address] Care Team Providers Care Risk Control Director Name Role Phone Name, Hayder NOVAK Primary Care Provider [phone] Allergies Active Allergy Reactions Criticality Noted Date [...] Ca) MG tablet use once a day Active fluticasone (Flonase) 50 MCG/ACT nasal spray spray 1 spray by intranasal route every day in each nostril 10/11/19 22 Active Vitron-C 65-125 MG tablet Take 1 tablet by mouth at bedtime. 04/08/19 23 Active traMADol (Ultram) 50 MG tablet Take 50 mg by mouth 2 times daily. 04/15/19 23 Active baclofen (Lioresal) 10 MG tablet Take 1 tablet (10 mg) by mouth 2 times daily. 60 tablet 11 12/29/19 24 Active albuterol (2.5 MG/3ML) 0.083% nebulizer solution INHALE 1 AMPULE USING A NEBULIZER BY MOUTH EVERY 6 HOURS 90 mL 11 01/19/20 24 Active Ventolin HFA 108 (90 Base) MCG/ACT inhalerIndicat ions:Asthma, unspecified asthma severity, unspecified whether complicated, unspecified whether persistent INHALE 2 PUFFS BY MOUTH EVERY 4 TO 6 HOURS NEEDED 18 g 4 02/26/20 24 Active D3-1000 25 MCG (1000 UT) capsuleIndicat ions:Vitamin D deficiency TAKE 1 CAPSULE BY MOUTH EVERY MORNING 90 capsule 03/08/20 24 Active SUMAtriptan (Imitrex) 25 MG tablet Take 1 tablet (25 mg) by mouth 1 (one) time if needed for migraine for up to 27 doses. May repeat dose once in 2 hours if no relief. Do not exceed 2 doses in 24 hours. 9 tablet 2 05/04/19 25 Active topiramate (Topamax) 25 MG tablet Take 1 tablet (25 mg) by mouth 2 times daily. 60 tablet 11 07/20/19 25 026 Active loratadine (Claritin) 10 MG tablet Take 1 tablet (10 mg) by mouth Once per day. 90 tablet 07/20/19 25 Active QUEtiapine (SEROquel) 25 MG tabletIndicati ons:Anxiety Take 1 tablet (25 mg) by mouth at bedtime. 30 tablet 2 07/20/19 25 Active zolpidem (Ambien) 10 MG tabletIndicati ons:Insomnia, unspecified type Take 1 tablet (10 mg) by mouth at bedtime. 30 tablet 2 07/20/19 25 Active lidocaine (Xylocaine) 5 % ointmentIndica tions:Rib pain Apply topically if needed for mild pain or moderate pain. 50 g 1 07/20/19 25 026 Active zolpidem (Ambien) 10 MG tablet Take 1 tablet by mouth at bed time. 01/25/20 22 025 Discontinued(Du plicate order (will not trigger notification to Pharmacy)) zolpidem (Ambien) 10 MG tablet Take 10 mg by mouth at bedtime. 04/08/19 23 025 Discontinued(Du plicate order (will not trigger notification to Pharmacy)) zolpidem (Ambien) 10 MG tabletIndicati ons:Insomnia, unspecified type TAKE 1 TABLET BY MOUTH DAILY AT BEDTIME 30 tablet 2 11/15/19 23 025 Discontinued(Re order (will not trigger notification to Pharmacy)) QUEtiapine (SEROquel) 25 MG tabletIndicati ons:Anxiety TAKE 1 TABLET BY MOUTH DAILY AT BEDTIME 30 tablet 2 11/15/19 23 025 Discontinued(Re order (will not trigger notification to Pharmacy)) loratadine (Claritin) 10 MG tablet TAKE 1 TABLET BY MOUTH EVERY DAY 30 tablet 3 02/08/20 24 025 Discontinued topiramate (Topamax) 25 MG tablet Take 1 tablet (25 mg) by mouth 2 times daily. 60 tablet 11 05/04/19 25 025 Discontinued(Re order (will not trigger notification to Pharmacy)) Diclofenac Sodium 1 % gel Apply 1 inch topically if needed in the morning and at bedtime (pain). 60 g 05/24/19 25 025 loratadine (Claritin) 10 MG tablet TAKE 1 TABLET BY MOUTH EVERY DAY 90 tablet 07/01/19 25 025 Discontinued(Re order (will not trigger notification to Pharmacy)) lidocaine (Xylocaine) 5 % ointmentIndica tions:Rib pain Apply topically if needed for mild pain or moderate pain. 50 g 1 07/20/19 25 025 Discontinued(Re order (will not trigger notification to Pharmacy)) Active Problems Problem Noted Date Diagnosed Date [...] Encounters Date Type Department Care Team Description 07/19/2024 9:00 AM EDT Office Visit [facility] [address] [place] [address] Hayder Alvarez MD Psychosis, unspecified psychosis type (CMS/HCC) (Primary Dx); Anxiety; Insomnia, unspecified type; Migraine without aura and without status migrainosus, not intractable; Seasonal allergies; Rib pain 07/19/2024 Refill [facility] [address] [place] [address] Sumaya Roe RN Rib pain 07/19/2024 Travel 07/14/2024 Telephone [facility] [address] [place], [place] [phone] Blair Talley MA chart prep 07/06/2024 Orders Only GENERIC EXTERNAL DATA DEPARTMENT Provider, Generic External Data 06/30/2024 Refill [facility] [address] [place] [address] Hayder Alvarez MD 06/07/2024 Telephone [facility] [address] [place], [place] [phone] Hayder Alvarez MD [facility] (Pad, bladder control moderate) 06/02/2024 Telephone [facility] [address] [place] [address] Carolina Layton RN Results; Plan of care 05/31/2024 Orders Only [address] [address] Rosemary Tran MD Spina bifida of thoracolumbar region, unspecified hydrocephalus presence (CMS/HCC) (Primary Dx); Mid back pain on left side 05/24/2024 5:20 PM EST Office Visit [facility] [address] [place] [address] Rosemary Tran MD Mid back pain on left side (Primary Dx); Viral upper respiratory tract infection 05/09/[address] [address] Hayder Alvarez MD Durable Medical Equipment (Incont pad) 05/04/2024 10:30 AM EST Office Visit [address] [address] Hayder Alvarez MD Migraine without aura and without status migrainosus, not intractable (Primary Dx); Chronic neck pain from Last 3 Months Immunizations Name Administration [...] Mass Index 36.35 07/19/2024 9:07 AM EDT Plan of Treatment Health Maintenance Due Date Last Done Comments [...] Mammogram 04/11/2025 04/11/2024, 01/05, 01/27/2023 Tobacco Screening 07/19/2025 07/19/2024 Cervical Cancer Screening 02/14/2027 HPV/Cotest 02/14/2027 06/17/2021, [...] Procedure Name Priority Date/Time Associated Diagnosis Comments HEMATOXYLIN AND EOSIN STAIN Routine 07/06/2024 9:38 AM EDT XR THORACIC SPINE 2 VIEWS Routine 05/27/2024 [...] Recently Relevant to Health Maintenance Results * Hematoxylin and Eosin Stain (07/06/2024 9:38 AM EDT) 07/06/2024 9:38 AM EDT 07/06/2024 1:36 PM EDT [facility] - 07/07/2024 12:50 PM EDT ----- ------- Name: Cindi Murdock ?Age/Sex: 43/F ? : 1980 Unit#: [id number] ?? Attend Dr: Aram Hogan MD ?Re07/06/24 ?Status: DEP REF ? Location: HO.LNP ?Disch: ? ----- ------- SPEC : [id number] ? RECD: 07/06/24 ? STATUS: ??SOUT ? REQ NUM: [id number] ? JOHN: 07/06/24 ? SUBM DR: Aram Hogan MD ? ENTERED: ??07/06/24 ?SP TYPE: Surgical ? OTHR DR: NameHayder MD ? ORDERED: ??HE Stain/2, Gross Micro L4 ? Diagnosis ?? Endometrium, biopsy: ??Benign proliferative endometrium and benign endocervical glandular ?? epithelium; no atypia or carcinoma. ?Clinical History AUB ?Microscopic Description Microscopic sections reviewed. ? Material Received ?? EMB ? Gross Description Received in formalin labeled EMB is a 2.0 x 2.0 x 0.5 cm aggregate of multiple irregular and tubular cast fragments of valadez-pink and red-maroon tissue with a moderate amount of mucus, submitted in toto in a cassette labeled A. CEDS Copies To: ?? Name,Hayder NOVAK ?? [address] [facility] ?? [place] [address] ?? [phone] ?? Aram Hogan MD ?? [facility] ?? [address] [facility] [address] ?? [place] [address] ?? [phone] ----- ------- Signed (signature on file) Yael Gramajo 07/07/24 1250 ? ----- ------- ? END OF REPORT ? us Generic External Data Provider LAB BLOOD ORDERAB LES Final Result [facility] [address] [place] [address] [phone] * XR Thoracic Spine 2 Views (05/27/2024 3:18 PM EST) Anatomical Region Laterality Modality Spine, T-spine Radiographic Beverley ging 05/27/2024 3:18 PM EST Narrative 05/31/2024 10:05 AM EST ? [facility] ?[address] ?[place] [address] ?XRay Report ? Signed ? Patient: Burtony,Cindi ?MR#: [id number] ?? [id number] ? : 1980 ?Acct:[id number] ? Age/Sex: 43 / F ?ADM Date: 05/27/24 ? Loc: HO.XRAY ? Attending Dr: Rosemary Tran MD ? Ordering Physician: Rosemary Tran MD ?? Date of Service: 05/27/24 ?? Procedure(s): XR thoracic spine 2V ?? Accession Number(s): [id number] ? cc: Rosemary Tran MD; Name,Hayder NOVAK [...] DD/ 1518 ? TD/TT: 05/27/24 1526 ? Plastic Worker: ? Procedure Note Donotuseinterpreter, Image - 05/31/2024 [place] [address] XRay Report Signed Patient: Marely MurdockR#: [id number] : 1980Acct:[id number] Age/Sex: 43 / FADM Date: 05/27/24 Loc: [facility] Attending Dr: Rosemary Tran MD Ordering Physician: Rosemary Tran MD Date of Service: 05/27/24 Procedure(s): XR thoracic spine 2V Accession Number(s): [id number] cc: Rosemary Tran MD; Name,Hayder NOVAK EXAMINATION: [...] 05/31/24 1000 DD/ 1518 TD/TT: 05/27/24 1526 Plastic Worker: Rosemary Tran MD IMG XR PROCEDURES Final Result * BI Mammogram Screening Tomosynthesis Bilateral (04/11/2024 10:45 AM EST) Anatomical Region Laterality Modality Breast Bilateral Mammography 04/11/2024 10:4 5 AM EST Narrative 04/17/2024 6:00 PM EST ? [facility] ? [address] ?[place], [place] [address] ? Mammography Report ? Signed ? Patient: Cindi Murdock ?MR#: [id number] ?? [id number] ? : 1980 ?Acct:[id number] ? Age/Sex: 43 / F ?ADM Date: 04/11/24 ? Loc: HO.MAMMO ? Attending Dr: Aram Hogan MD ? Ordering Physician: Aram Hogan MD ?Results: 1Negativ ?? e ? Date of Service: 04/11/24 ?Follow Up: 1 Year From Orig ?? inal Mammogram ? Procedure(s): MM tomosynthesis screening BI ?? Accession Number(s): [id number] ? cc: Hayder Alvarez MD; Aram Hogan [...] ??Haleigh Jacob DO ??04/17/2024 05:57 PM EST ? Dictated By: ?Haleigh Jacob DO ? Signed By: ?<Electronically signed by Haleigh Jacob, DO in OV> ? 04/17/24 1757 ? DD/ 1045 ? TD/TT: 04/11/24 1108 ? Plastic Worker: ? Procedure Note Donariel, Image - 04/17/2024 [place] [facility] [address] [place] [address] Mammography Report Signed Patient: Carleen Murdock#: [id number] : 1980Acct:[id number] Age/Sex: 43 / FADM Date: 04/11/24 Loc: HO.MAMMO Attending Dr: Aram Hogan MD Ordering Physician: Aram Hogan MDResults: 1Negativ e Date of Service: 04/11/24Follow Up: 1 Year From Orig inal Mammogram Procedure(s): MM tomosynthesis screening BI Accession Number(s): [id number] cc: Hayder Alvarez MD; Aram Hogan MD [...] Haleigh Jacob DO 04/17/2024 05:57 PM EST RP Dictated By: Haleigh Jacob DO Signed By: <Electronically signed by Haleigh Jacob DO in OV> 04/17/24 1757 DD/ 1045 TD/TT: 04/11/24 1108 Plastic Worker: [facility] External Provider IMG BI PROCEDURES Edited Result - Final * Pap Smear (02/15/2024 9:23 AM EST) 02/15/2024 9:23 AM EST 02/15/2024 11:00 AM EST [facility] - 02/18/2024 9:42 AM EST ----- ------- Name: Cindi Murdock ?Age/Sex: 43/F ? : 1980 Unit#: [id number] ?? Attend Dr: Aram Hogan MD ?Re02/15/24 ?Status: DEP REF ? Location: HO.LNP ?Disch: ? ----- ------- SPEC : [id number] ?RECD: 02/15/24-1099 ? STATUS: ??SOUT ? REQ NUM: [id number] ? JOHN: 02/15/24 ? SUBM DR: Aram Hogan MD ? ENTERED: ??02/15/24 ?SP TYPE: Pap Smr ?OTHR : Hayder Alvarez MD ? ORDERED: ??Pap Smear ? Interpretation ?? Satisfactory for evaluation. ?? Negative for intraepithelial lesion or malignancy. ?? Scant cellularity. ? HPV High Risk: ??Negative ? HPV Genotyping 16: ??Negative ?? HPV Genotyping 18: ??Negative ?Clinical Information LMP: 02/15/2024 Previous PAP test: 12/19/2022, HPV + ? Material Received ?? ThinPrep-Cervical Copies To: ?? Name,Hayder NOVAK ?? [address] [facility] ?? [place] [address] ?? [phone] ?? Aram Hogan MD ?? [facility] ?? [address] ?? [place] [address] ?? [phone] ----- ------- Signed (signature on file) RICHARD Zelaya (ASCP) 02/18/24 0942 ? ----- ------- ? END OF REPORT ? us Generic External Data Provider LAB CYTOLOGY LALY DAWKINS Final Result [facility] [address] [facility] [place] [address] [phone] * (ABNORMAL) Lipid Panel, Standard (02/17/2023 9:08 AM EST) Triglycerides 56 <150 mg/dL [facility] Comment:Desirable Triglyceri de: less than 150 mg/dLBorderline High Triglyceride 150-199 mg/dLHigh Triglyceride: 200-499 mg/dLVery High Triglyceride: greater than or equal to 5OO mg/dL Cholesterol 188 <200 mg/dL [facility] Comment:Desirable Cholestero l: less than 200 mg/dLBorderline High Cholesterol: 200-239 mg/dLHigh Cholesterol: greater than 239 mg/dL LDL Cholesterol Calculated 122(H) <100 mg/dL [facility] Comment:Desirable LDL: less than 100 mg/dLNear Optimal/Above Optimal LDL: 110- 129 mg/dLBorderline High LDL: 130-159 mg/dLHigh LDL: 160-189 mg/dLVery High LDL: greater than or equal to 190 mg/dL HDL Cholesterol 55 >40 mg/dL [facility] Comment:Desirable HDL: great er than 40 mg/dL Note: This HDL assay may give artificially low results in patients with liver disease. Blood Venous blood specimen / Unknown 02/17/2023 9:08 AM EST 02/17/2023 11:32 AM EST Hayder Alvarez MD LAB BLOOD ORDERABLES Final Resul t [facility] [address] [place], [place] [phone] * (ABNORMAL) Pap Smear (06/17/2021) Pap Negative for intraephithelial lesion or malignancy Negative for intraephithelial lesion or malignancy, Other HPV Detected Comment:HPV mRNA E6/E7 rflx 06/17/2021 Aram Hogan MD HEALTH MAINTENANCE Final Result from Last 3 Months or Most Recently Relevant to Health Maintenance Insurance [facility] [address] [facility] Care Teams Risk Control Director Relationship Specialty Start Date End Date Name, MD Hayder [address] [place] [phone] PCP - General Family Medicine 09/23/19
--- OUTSIDE RECORDS SUMMARY | 2024-07-21 13:03 | XMS_ITS | Encounter Summary ---
Author Organization [employer] Address [address] [place] [address] 7t [place] [address] Care Team Providers Care Branch Manager Trainee Name Role Phone Name, Hayder NOVAK Primary Care Provider [phone] Encounter Details Date Type Department Care Team (Latest Contact Info) Description 09/10/2018 Abstract [facility] CONVERSIONS Dental, Provider, DDS Social [...] on filedocumented in this encounter Care Teams Branch Manager Trainee Relationship Specialty Start Date End Date Name, MD Hayder [address] [place] [address] PCP - General Family Medicine 09/23/19 documented as of this encounter
--- OUTSIDE RECORDS SUMMARY | 2024-07-21 13:04 | XMS_ITS | Patient Health Record ---
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) Active confirmed Problem 505105123 Hammer toe of right foot (M20.41) Active confirmed Problem 496995100 Hammer toe of left foot (M20.42) Active confirmed Problem 25927740 Gait abnormality (R26.9) Active confirmed Problem 083127539 Equinus contracture of left ankle (M24.572) Active confirmed Problem 87504851 Spina bifida, unspecified hydrocephalus presence, unspecified spinal region (Q05.9) Active confirmed Vital Signs Height 5ft1in in 12/15/2023 Weight 175 lbs 12/15/2023 BMI 33.06 kg/m2 12/15/2023 Encounters Encounter Location Date Provider Diagnosis [facility] [place] [address] [place] [address] 12/15/2023 Joan Grimaldo Equinus contracture of left [...] Name:Joan Johann grajeda, 12/20/2024 09:00:00 AM, [address] [place], [address], Insurance Providers Payer Name Payer Address Payer Phone Subscriber Number Group Number Insured Name Patient Relationship to Insured Coverage Start Date Coverage End Date [facility] [employer] Claims [address] [place] [phone] [id number] Cindi Murdock Self - patient is the insured Medical (General) History Medical History History ICD Code Anxiety Arthritis asthma Back,Hip,and Knee pain Broken bones covid-19 Macular degeneration Migraines Reflux ( GERD) Seizures Spina bifida uterine bleeding Surgical History Surgery Date(Month/Year) gastric bypass arm
== END 2024-07-21 11:57 | disposition home or self-care (01) ==
LOC: HO.HWS 10:46
PROVIDERS: PCP Internal Medicine Geriatric Medicine; Visit Provider Obstetrics & Gynecology
DX: N93.9 Abnormal uterine and vaginal bleeding, unspecified (principal)
CPT/HCPCS: 99213

== ENCOUNTER → 2024-07-21 10:46 | Outpatient (BNVA) | payer OTHER, SELFPAY | PROVIDERS: PCP Internal Medicine Geriatric Medicine; Visit Provider Obstetrics & Gynecology | DX: N93.9 Abnormal uterine and vaginal bleeding, unspecified (principal) | CPT/HCPCS: 99212 ==

== ENCOUNTER 2024-09-08 09:56 | Outpatient (REF) | payer OTHER, SELFPAY ==
--- OUTSIDE RECORDS SUMMARY | 2024-09-08 11:26 | XMS_ITS | Encounter Summary ---
Author Organization [email or web address] Address [address] [place] [address] 7t [place] [address] Care Team Providers Care Med Spa Manager Name Role Phone Name, Hayder NOVAK Primary Care Provider [phone] Encounter Details Date Type Department Care Team [...] on filedocumented in this encounter Care Teams Med Spa Manager Relationship Specialty Start Date End Date Name, MD Hayder [address] [place] [address] PCP - General Family Medicine 09/23/19 documented as of this encounter
[2024-09-08 12:08] LABS: Estimated Average Glucose 111 mg/dL; Hemoglobin A1c % 5.5 % (<6.0)
[2024-09-08 12:25] LABS: Alanine Aminotransferase 9 U/L (0-31); Alkaline Phosphatase 63 U/L (39-117); Anion Gap 9 (12-20); Aspartate Amino Transferase 15 U/L (5-31); Bilirubin Direct < 0.2 mg/dL (0.0-0.5); Bilirubin Total 0.2 mg/dL (0.0-1.0); Blood Urea Nitrogen 15 mg/dL (9-16); Carbon Dioxide 25 mmol/L (22-29); Chloride 111 mmol/L (96-108); Cholesterol 173 mg/dL (<200); Estimated Glomerular Filt Rate > 60; Glucose Random 90 mg/dL (60-115); HDL Cholesterol 49 mg/dL (>40); LDL Cholesterol Calculated 116 mg/dL (<100); Potassium 4.1 mmol/L (3.3-5.1); Sodium 141 mmol/L (135-145); Total Protein 6.8 g/dL (6.5-8.0); Triglycerides 42 mg/dL (<150)
[2024-09-08 12:43] LABS: Thyroid Stimulating Hormone 1.21 uIU/mL (0.32-4.0)
== END 2024-09-08 09:57 | disposition home or self-care (01) ==
LOC: HO.HHCL 09:56
PROVIDERS: Visit Provider Dietitian, Registered
DX: F41.0 Panic disorder [episodic paroxysmal anxiety] (principal); F33.41 Major depressive disorder, recurrent, in partial remission
CPT/HCPCS: 36415; 80053; 80061; 82248; 83036; 84443

== ENCOUNTER 2024-10-26 09:25 | Outpatient (AMB) | payer OTHER, SELFPAY ==
--- NOTE | 2024-10-26 09:25 | A.OFFVIS_ITS ---
Vital Signs 10/26/24 09:26 Height 5 ft 1 in Weight 191 lb BMI 36.1 BP 118/72 Intake Visit Reasons: medication follow up Advertising Sales Executive Required: No Information Interpreted: non-clinical & clinical Accompanied by: Mother Allergies iodine (Iodine) Allergy (Severe, Verified 10/26/24 09:30) ANAPHYLAXIS norethandrolone (NORETHANDROLONE) Allergy (Severe, Verified 10/26/24 09:30) TRIGGERS MIGRAINES Penicillins (PENICILLINS) Allergy (Severe, Verified 10/26/24 09:30) SWELLING/RASH cyclobenzaprine (CYCLOBENZAPRINE) Allergy (Intermediate, Verified 10/26/24 09:30) H/A,PALPITATIONS latex (LATEX) Allergy (Intermediate, Verified 10/26/24 09:30) HIVES,ITCHING red dye Allergy (Verified 10/26/24 09:30) rash lactose Adverse Reaction (Verified 10/26/24 09:30) Unknown Pt state s no known food Aller Allergy (Unknown, Uncoded 10/26/24 09:30) Unknown blue dye Allergy (Uncoded 10/26/24 09:30) Rash Post menopausal: Yes HPI Comments Details: Presenting for follow-up after starting Provera 10 mg p.o. q.d. day 15-24 cyclicly her menstrual cycles have been regular and light, the patient is requesting refill. Last mammogram was negative in 04/30 [facility] Medical History HPV (human papilloma virus) infection Dysfunctional uterine bleeding Seizures Spina bifida GERD (gastroesophageal reflux disease) Acute depression Hx of migraines Asthma Surgical History Hx of unilateral oophorectomy History of Lizzy-en-Y gastric bypass History of surgery on arm Family History Father DM (diabetes mellitus) Asthma CVD (cardiovascular disease) Mother HTN (hypertension) DM (diabetes mellitus) Asthma CVD (cardiovascular disease) Brother No problems noted. Brother No problems noted. Sister Uterine cancer Sister No problems noted. Social History Alcohol intake: never Patient Tobacco Use Status: Never used Tobacco Sexual orientation: Straight/Heterosexual Gender identity: Female Female Reproductive History Menstrual Age of Menarche: 9 Duration of menses: 3-5 days Date of last menstrual period: 10/12/24 Review of Systems Const All systems reviewed & are unremarkable except as noted in HPI and below Reports as per HPI and Reports no additional complaints GI Reports no additional complaints Reports no additional complaints Physical Exam Vital Signs: Last Vital Signs BP 118/72 10/26/24 09:26 BMI result Body Mass Index 36.1 Assessment & Plan Assessment & Plan (1) Abnormal uterine bleeding (AUB): Code(s): N93.9 - Abnormal uterine and vaginal bleeding, unspecified Category: Medical Plan: Provera 10 mg p.o. q.d. day 15-25 refill sent to the patient's pharmacy. All questions answered, the patient verbalized understanding Medications: Changed From medroxyprogesterone (Provera) start Provera 1 tablet daily from day 15-24 cyclically every months, day 1 being 1st day of menses 10 mg PO DAILY 10 days 30 tabs 0RF To medroxyprogesterone (Provera) start Provera 1 tablet daily from day 15-24 cyclically every months, day 1 being 1st day of menses 10 mg PO DAILY 30 tabs 3RF 90 days Coding Level of Care Code Est Pt Level 3 (34159) Diagnoses Abnormal uterine bleeding (AUB) N93.9
[2024-10-26 09:26] VITALS: BP 118/72; BMI 36.1
--- OUTSIDE RECORDS SUMMARY | 2024-10-26 09:57 | XMS_ITS | Encounter Summary ---
Author Organization [employer] Address [address] [place] [address] 7t [place] [address] Care Team Providers Care Air Duct Mechanic Name Role Phone Name, Hayder NOVAK Primary Care Provider [phone] Encounter Details Date Type Department Care Team [...] on filedocumented in this encounter Care Teams Air Duct Mechanic Relationship Specialty Start Date End Date Name, MD Hayder [address] [place] [address] PCP - General Family Medicine 09/23/19 documented as of this encounter
--- OUTSIDE RECORDS SUMMARY | 2024-10-26 09:57 | XMS_ITS | Patient Health Record ---
Author Organization [facility] Address [address] [place] [address] Care Team Providers Care Enlisted Advisor Name Role Phone Name Hayder NOVAK Primary Care Provider Joan Torrez Unavailable [phone] Allergies Allergen (clinical drug ingredient) Drug/Non Drug [...] tablet at be dtime Orally Once a day; Duration: 30 day(s) Active traMADol HCl 50 MG 1 tablet as needed Orally Once a day Active Ventolin HFA Active Vitamin A Active Vitamin D3 25 MCG (1000 UT) 1 capsule Orally Once a day; Duration: 30 day(s) Active Vitron-C Active Zolpidem Tartrate 10 MG 1 tablet at bedt joey as needed Orally Once a day Active AFO-fixed . 1 . Wear daily to le ft foot 08/12/2022 Active Dicyclomine HCl 20 MG 1 tablet Orally Th ree times a day; Duration: 30 day(s) Not-Taking Docusate Sodium 100 MG 1 capsule as need ed Orally Once a day; Duration: 30 day(s) Not-Taking Flovent HFA 110 MCG/ACT 2 puffs Inhalati on Twice a day Unknown Iron Combinations - as directed Orally Not-Taking Loratadine 10 MG 1 tablet Orally Once a day; Duration: 30 day(s) Unknown Multi Max Unknown Social [...] Problem Status W/U Status Risk Notes Problem Contracture of joint of left foot (disorder) (48237292527533 7) Contracture, left foot (M24.575) Active confirmed Problem Acquired hammer toe of right foot (26224152046122 05) Hammer toe of right foot (M20.41) Active confirmed Problem Acquired hammer toe of left foot (71796784034103 03) Hammer toe of left foot (M20.42) Active confirmed Problem Gait abnormality (88526972) Gait abnormality (R26.9) Active confirmed Problem Equinus contracture of left ankle (M24.572) Active confirmed Problem Spina bifida (44652157) Spina bifida, unspecified hydrocephalus presence, unspecified spinal region (Q05.9) Active confirmed Vital Signs Height 5ft1in in 12/15/2023 Weight 175 lbs 12/15/2023 BMI 33.06 kg/m2 12/15/2023 Encounters Encounter Location Date Provider Diagnosis [facility] [address] [address] 12/15/2023 Joan Grimaldo Equinus contracture of left [...] 3V 08/12/2022 Next Appt Details Provider Name:Joan grajeda, 12/20/2024 09:00:00 AM, [address] [place] [address], [phone], Insurance Providers Payer Name Payer Address Payer Phone Subscriber Number Group Number Insured Name Patient Relationship to Insured Coverage Start Date Coverage End Date [facility] [employer] Claims [address] [place] [phone] [id number] Cindi Murdock Self - patient is the insured Medical (General) History Medical History History ICD Code Anxiety Arthritis asthma Back,Hip,and Knee pain Broken bones covid-19 Macular degeneration Migraines Reflux ( GERD) Seizures Spina bifida uterine bleeding Surgical History Surgery Date(Month/Year) gastric bypass arm
== END 2024-10-26 09:42 | disposition home or self-care (01) ==
LOC: HO.HWS 09:25
PROVIDERS: PCP Internal Medicine Geriatric Medicine; Visit Provider Obstetrics & Gynecology
DX: N93.9 Abnormal uterine and vaginal bleeding, unspecified (principal)
CPT/HCPCS: 99213

== ENCOUNTER → 2024-10-26 09:25 | Outpatient (BNVA) | payer OTHER, SELFPAY | PROVIDERS: PCP Internal Medicine Geriatric Medicine; Visit Provider Obstetrics & Gynecology | DX: N93.9 Abnormal uterine and vaginal bleeding, unspecified (principal); Z79.899 Other long term (current) drug therapy | CPT/HCPCS: 99212 ==

== ENCOUNTER 2024-10-27 08:40 | Outpatient (AMB) | payer OTHER, SELFPAY ==
--- OUTSIDE RECORDS SUMMARY | 2024-10-27 09:02 | XMS_ITS | Encounter Summary ---
Author Organization [facility] Address [address] [place] [address] [address] [place] [address] Care Team Providers Care Typing Secretary Name Role Phone Name, Hayder NOVAK Primary Care Provider [phone] Encounter Details Date Type Department Care Team [...] on filedocumented in this encounter Care Teams Typing Secretary Relationship Specialty Start Date End Date Name, MD Hayder [address] [place] [address] PCP - General Family Medicine 09/23/19 documented as of this encounter
--- OUTSIDE RECORDS SUMMARY | 2024-10-27 09:02 | XMS_ITS | Patient Health Record ---
Author [facility] Address [address] [place] [address] Care Team Providers Care Special Education Math Teacher Name Role Phone Name Hayder NOVAK Primary Care Provider Joan Torrez Unavailable [phone] Allergies Allergen (clinical drug ingredient) Drug/Non Drug [...] Contracture of joint of left foot (disorder) (69893797916832 7) Contracture, left foot (M24.575) Active confirmed Problem Acquired hammer toe of right foot (31957355987086 05) Hammer toe of right foot (M20.41) Active confirmed Problem Acquired hammer toe of left foot (93184804903218 03) Hammer toe of left foot (M20.42) Active confirmed Problem Gait abnormality (75085912) Gait abnormality (R26.9) Active confirmed Problem Equinus contracture of left ankle (M24.572) Active confirmed Problem Spina bifida (51910495) Spina bifida, unspecified hydrocephalus presence, unspecified spinal region (Q05.9) Active confirmed Vital Signs Height 5ft1in in 12/15/2023 Weight 175 lbs 12/15/2023 BMI 33.06 kg/m2 12/15/2023 Encounters Encounter Location Date Provider Diagnosis [facility] [address] [address] 12/15/2023 Joan Grimaldo Equinus contracture of left [...] Details Provider Name:Joan grajeda, 12/20/2024 09:00:00 AM, [address] [place] [address], [phone], Insurance Providers Payer Name Payer Address Payer Phone Subscriber Number Group Number Insured Name Patient Relationship to Insured Coverage Start Date Coverage End Date [facility] [employer] Claims [address] [place] [phone] [id number] Cindi Murdock Self - patient is the insured Medical (General) History Medical History History ICD Code Anxiety Arthritis asthma Back,Hip,and Knee pain Broken bones covid-19 Macular degeneration Migraines Reflux ( GERD) Seizures Spina bifida uterine bleeding Surgical History Surgery Date(Month/Year) gastric bypass arm
[2024-10-27 09:06] VITALS: BP 120/68; PULSE 60; O2SAT 98; BMI 36.2
--- NOTE | 2024-10-27 09:06 | A.OFFVIS_ITS ---
Vital Signs 10/27/24 09:06 Height 5 ft 1 in Weight 191 lb 9.307 oz BMI 36.2 BP 120/68 Blood Pressure Location Lt brachial Position Sitting Pulse 60 Pulse Source Pulse Oximeter Pulse Oximetry (%) 98 Oxygen Delivery Method Room Air Intake Visit Reasons: FMS/OA Intake Note: Patient last seen by Doctor Mesha Inman on 04/18/24. Presents today for FMS/OA follow up. Allergies iodine (Iodine) Allergy (Severe, Verified 10/27/24 09:08) ANAPHYLAXIS norethandrolone (NORETHANDROLONE) Allergy (Severe, Verified 10/27/24 09:08) TRIGGERS MIGRAINES Penicillins (PENICILLINS) Allergy (Severe, Verified 10/27/24 09:08) SWELLING/RASH cyclobenzaprine (CYCLOBENZAPRINE) Allergy (Intermediate, Verified 10/27/24 09:08) H/A,PALPITATIONS latex (LATEX) Allergy (Intermediate, Verified 10/27/24 09:08) HIVES,ITCHING red dye Allergy (Verified 10/27/24 09:08) rash lactose Adverse Reaction (Verified 10/27/24 09:08) Unknown Pt state s no known food Aller Allergy (Unknown, Uncoded 10/27/24 09:08) Unknown blue dye Allergy (Uncoded 10/27/24 09:08) Rash Medication List - Last Reconciled 10/27/24 by Caity Virk MD albuterol sulfate 90 mcg/actuation (Ventolin HFA) 2 puffs inhalation Q4-6H PRN baclofen 10 mg PO BID cholecalciferol (vitamin D3) 25 mcg PO DAILY [cock up splint Wear on wrists at night. ] dicyclomine 20 mg PO BID docusate sodium (Colace) 100 mg PO DAILY escitalopram oxalate 10 mg PO DAILY ferrous sulfate 325 mg PO DAILY fluticasone propionate 110 mcg/actuation (Flovent HFA) 1 puff inhalation BID iron,carbonyl-vitamin C 65 mg iron- 125 mg (Vitron-C) 1 tab PO BEDTIME loratadine (Allergy Relief (loratadine)) 10 mg PO DAILY medroxyprogesterone (Provera) 10 mg PO DAILY 90 days nsacmqaewres-ufz-aisr-FA-vit K 45 mg iron- 800 mcg-120 mcg (Bariatric Multivitamins) caps PO quetiapine (Seroquel) 25 mg PO DAILY tramadol 50 mg PO BID PRN vitamin A 1 cap PO DAILY zolpidem (Ambien) 10 mg PO BEDTIME PRN HPI Comments Details: Patient is a 43-year-old female with spina bifida, asthma, iron-deficiency anemia, and polyarticular osteoarthritis here today for follow up Interval History: Patient last seen 04/18/[address] Inman - c/o leg cramps - On Tramadol - No new recommendations Today, - Doing the same - Still has back pain Rheumatologic History: Polyarticular OA Current Rheumatology Medication(s): Tramadol 50mg bid PFSH Medical History HPV (human papilloma virus) infection Dysfunctional uterine bleeding Seizures Spina bifida GERD (gastroesophageal reflux disease) Acute depression Hx of migraines Asthma Surgical History Hx of unilateral oophorectomy History of Lizzy-en-Y gastric bypass History of surgery on arm Family History Father DM (diabetes mellitus) Asthma CVD (cardiovascular disease) Mother HTN (hypertension) DM (diabetes mellitus) Asthma CVD (cardiovascular disease) Brother No problems noted. Brother No problems noted. Sister Uterine cancer Sister No problems noted. Social History Alcohol intake: never Patient Tobacco Use Status: Never used Tobacco Sexual orientation: Straight/Heterosexual Gender identity: Female Female Reproductive History Menstrual Age of Menarche: 9 Review of Systems Const Details: Review of Systems Constitutional: Denies fever, chills, weight loss ENT: Denies vision changes, eye pain or eye redness, dental caries, dry mouth GI: Denies nausea, vomiting, diarrhea, abdominal pain, change in BM Pulm: Denies SOB, SRIVASTAVA, hemoptysis, wheezing Cards: Denies chest pain, palpitations Skin: Denies Raynaud's, rash, nail changes, photosensitivity, GREASE MAKER HEAD: Denies headaches, weakness, paresthesias, recurrent falls MSK: as per HPI All other systems reviewed and are unremarkable except noted above Physical Exam Exam Exam: Vital signs reviewed Physical Examination CONSTITUITIONAL Patient alert and cooperative. Well appearing and in no apparent painful distress MSK Hands * Right Hand: Able to make a fist. No swelling or tenderness to palpation of these joints. No deformities noted. * Left Hand: Able to make a fist. No swelling or tenderness to palpation of these joints. No deformities noted. Wrists * Right Wrist: Full ROM. 70 degrees of wrist flexion, 80 degrees of wrist extension. No swelling or TTP * Left Wrist: Full ROM. 70 degrees of wrist flexion, 80 degrees of wrist extension. No swelling or TTP Elbows * Right Elbow: Full ROM. No swelling or TTP. No TTP of the medial and lateral epicondyles * Left Elbow: Full ROM. No swelling or TTP. No TTP of the medial and lateral epicondyles Shoulders * Right shoulder: Full ROM. No swelling noted. No TTP of the AC joint, subacromial bursa or posterior shoulder * Left shoulder: Full ROM. No swelling noted. No TTP of the AC joint, subacromial bursa or posterior shoulder Knees * Right knee: Full ROM. No swelling noted. No TTP of the knee joint lie or pes anserine bursa * Left knee: Full ROM. No swelling noted. No TTP of the knee joint lie or pes anserine bursa. Ankles * Right ankle: Good ankle dorsiflexion and plantar flexion. No swelling. No TTP of the ankle joint * Left ankle: Good ankle dorsiflexion and plantar flexion. No swelling. No TTP of the ankle joint Feet * Right foot: Negative squeeze test * Left foot: Negative squeeze test. Hammer toes Tender points? * No tenderness to palpation of the bilateral trapezius, supraspinatus, anterior costochondral junctions, bilateral suboccipital muscle insertions SKIN No rashes Vital Signs: Last Vital Signs Pulse 60 10/27/24 09:06 BP 120/68 10/27/24 09:06 Pulse Ox 98 10/27/24 09:06 Oxygen Delivery Method Room Air 10/27/24 09:06 BMI result Body Mass Index 36.2 Results Reviewed Results Reviewed: XR T Spine 05/2024 FINDINGS: No acute cortical disruption. No gross malalignment. No lytic or blastic lesions. Endplate sclerosis and marginal osteophyte formation in the lower thoracic spine. Vascular clips in the left upper quadrant abdomen. Mild multilevel cervical spondylosis. IMPRESSION: Mild multilevel lower thoracic spondylosis. No acute fracture or listhesis. Assessment & Plan Assessment & Plan (1) Polyarticular osteoarthritis: Code(s): M15.9 - Polyosteoarthritis, unspecified Plan: #Polyarticular OA Patient is a 43-year-old female with a history of spina bifida complicated by degenerative disease of her spine. Currently on tramadol which helps with her pain. Still complaining of pain so I referring to pain management may be helpful Plan - Pain management referral - Tramdol 50mg tid prn - RTC 1 year Plan I spent 20 minutes reviewing the record and labs, taking a history, examining the patient, discussing the treatment plan, ordering diagnostic work up and documenting in the medical record Orders: Referrals Pain Management Referral M47.812 - Spondylosis without myelopathy or radiculop athy, cervical region, M47.816 - Spondylosis without myelopathy or radiculopathy, lumbar region Coding Level of Care Code Est Pt Level 3 (63689) Diagnoses Polyarticular osteoarthritis M15.9
== END 2024-10-27 09:40 | disposition home or self-care (01) ==
LOC: HO.RHE 08:41
PROVIDERS: PCP Internal Medicine Geriatric Medicine; Visit Provider Student in an Organized Health Care Education/Training Program
DX: M15.9 Polyosteoarthritis, unspecified (principal)
CPT/HCPCS: 99213

== ENCOUNTER → 2024-10-27 08:40 | Outpatient (BNVA) | payer OTHER, SELFPAY | PROVIDERS: PCP Internal Medicine Geriatric Medicine; Visit Provider Student in an Organized Health Care Education/Training Program | DX: M15.9 Polyosteoarthritis, unspecified (principal); Q05.9 Spina bifida, unspecified | CPT/HCPCS: 99212 ==

== ENCOUNTER 2024-11-11 10:24 | Outpatient (AMB) | payer OTHER, SELFPAY ==
--- OUTSIDE RECORDS SUMMARY | 2024-11-11 10:28 | XMS_ITS | Encounter Summary ---
Author Organization [employer] Address [address] [place] [address] [address] [place] [address] Care Team Providers Care Electrifier Operator Name Role Phone Name, Hayder NOVAK Primary Care Provider [phone] Encounter Details Date Type Department Care Team [...] on filedocumented in this encounter Care Teams Electrifier Operator Relationship Specialty Start Date End Date Name, MD Hayder [address] [place] [address] PCP - General Family Medicine 09/23/19 documented as of this encounter
--- OUTSIDE RECORDS SUMMARY | 2024-11-11 10:28 | XMS_ITS | Patient Health Record ---
[facility] Address [address] [place] [address] Care Team Providers Care Security Site Supervisor Name Role Phone Name Hayder NOVAK Primary Care Provider Joan Torrez Unavailable [phone] Allergies Allergen (clinical drug ingredient) Drug/Non Drug [...] Contracture of joint of left foot (disorder) (60885112631054 7) Contracture, left foot (M24.575) Active confirmed Problem Acquired hammer toe of right foot (21556194283617 05) Hammer toe of right foot (M20.41) Active confirmed Problem Acquired hammer toe of left foot (03518303644677 03) Hammer toe of left foot (M20.42) Active confirmed Problem Gait abnormality (60145593) Gait abnormality (R26.9) Active confirmed Problem Equinus contracture of left ankle (M24.572) Active confirmed Problem Spina bifida (94808989) Spina bifida, unspecified hydrocephalus presence, unspecified spinal region (Q05.9) Active confirmed Vital Signs Height 5ft1in in 12/15/2023 Weight 175 lbs 12/15/2023 BMI 33.06 kg/m2 12/15/2023 Encounters Encounter Location Date Provider Diagnosis [facility] [address] [address] 12/15/2023 Joan Grimaldo Equinus contracture of left [...] Provider Name:Joan grajeda, 12/20/2024 09:00:00 AM, [address] [place] [address], [phone], Insurance Providers Payer Name Payer Address Payer Phone Subscriber Number Group Number Insured Name Patient Relationship to Insured Coverage Start Date Coverage End Date [facility] [employer] Claims [address] [place] [phone] [id number] Cindi Murdock Self - patient is the insured Medical (General) History Medical History History ICD Code Anxiety Arthritis asthma Back,Hip,and Knee pain Broken bones covid-19 Macular degeneration Migraines Reflux ( GERD) Seizures Spina bifida uterine bleeding Surgical History Surgery Date(Month/Year) gastric bypass arm
[2024-11-11 10:56] VITALS: BP 117/65; PULSE 61; RESP 16; O2SAT 99; BMI 35.7
--- NOTE | 2024-11-11 10:56 | A.OFFVIS_ITS ---
Vital Signs 11/11/24 10:56 Height 5 ft 1 in Weight 189 lb BMI 35.7 BP 117/65 Blood Pressure Location Lt brachial Position Sitting Respiration 16 Pulse 61 Pulse Source Pulse Oximeter Pulse Oximetry (%) 99 Oxygen Delivery Method Room Air Intake Visit Reasons: Spondylosis without myelopathy or radiculopathy Outside Industrial Sales Representative Required: No Allergies iodine (Iodine) Allergy (Severe, Verified 11/11/24 10:57) ANAPHYLAXIS norethandrolone (NORETHANDROLONE) Allergy (Severe, Verified 11/11/24 10:57) TRIGGERS MIGRAINES Penicillins (PENICILLINS) Allergy (Severe, Verified 11/11/24 10:57) SWELLING/RASH cyclobenzaprine (CYCLOBENZAPRINE) Allergy (Intermediate, Verified 11/11/24 10:57) H/A,PALPITATIONS latex (LATEX) Allergy (Intermediate, Verified 11/11/24 10:57) HIVES,ITCHING red dye Allergy (Verified 11/11/24 10:57) rash lactose Adverse Reaction (Verified 11/11/24 10:57) Unknown Pt state s no known food Aller Allergy (Unknown, Uncoded 11/11/24 10:57) Unknown blue dye Allergy (Uncoded 11/11/24 10:57) Rash Medication List - Last Reconciled 11/11/24 by Juany Stearns LPN albuterol sulfate 90 mcg/actuation (Ventolin HFA) 2 puffs inhalation Q4-6H PRN baclofen 10 mg PO BID cholecalciferol (vitamin D3) 25 mcg PO DAILY [cock up splint Wear on wrists at night. ] docusate sodium (Colace) 100 mg PO DAILY escitalopram oxalate 10 mg PO DAILY fluticasone propionate 110 mcg/actuation (Flovent HFA) 1 puff inhalation BID iron,carbonyl-vitamin C 65 mg iron- 125 mg (Vitron-C) 1 tab PO BEDTIME loratadine (Allergy Relief (loratadine)) 10 mg PO DAILY medroxyprogesterone (Provera) 10 mg PO DAILY 90 days nelvdhcchxxh-mij-vqvu-FA-vit K 45 mg iron- 800 mcg-120 mcg (Bariatric Multivitamins) caps PO quetiapine (Seroquel) 25 mg PO DAILY tramadol 50 mg PO BID PRN vitamin A 1 cap PO DAILY zolpidem (Ambien) 10 mg PO BEDTIME PRN HPI HPI Spondylosis without myelopathy or radiculopathy: Details: History of Present Illness The patient is a 43-year-old female presenting with chronic pain management concerns. She has a history of spina bifida, diagnosed at age 28 after a work- related fall, leading to three months of immobility. The condition causes significant lower back pain, described as pressure and burning, with involuntary movements and cramping at night. Joint pain affects multiple areas, including fingers, toes, and ribs, with muscle pain in the right hand. Back surgery has been avoided due to risks of losing urinary and bowel control. The patient attempts home stretching exercises but finds them painful, limiting her physical activity. She had gastric bypass surgery but gained weight due to reduced exercise capability. Currently, she takes tramadol twice daily, reducing her pain from a 10 to a 6 or 7. A recent MRI of the lower back has not been conducted, though a pelvis MRI was done previously. Pain Description - Onset: Chronic pain associated with spina bifida, diagnosed at age 28 - Quality: Pressure and burning sensation in the lower back, with involuntary movements and cramping at night - Location: Lower back, with joint pain in fingers, toes, and ribs, and muscle pain in the right hand - Exacerbating factors: Physical activity and stretching exercises - Relieving factors: Tramadol reduces pain from a 10 to a 6 or 7 Physical Exam - Lumbar region: Generalized tenderness - Gait: Walks with a cane, antalgic gait, able to walk on toes and heels Results - Previous pelvis MRI conducted, no recent MRI of the lower back Pain Management - Affect: Pain impacts daily activities and limits physical exercise - Analgesia: Tramadol twice daily, reduces pain from 10 to 6 or 7 - Adverse Effects: Pain limits ability to perform physical activities - Activities of Daily Living: Pain interferes with cleaning and exercise routine s - Aberrant Drug Related Behaviors: None reported [facility] Medical History (Updated 11/11/24 @ 11:26 by Tony Sweet MD) HPV (human papilloma virus) infection Dysfunctional uterine bleeding Seizures Spina bifida GERD (gastroesophageal reflux disease) Acute depression Hx of migraines Asthma Surgical History Hx of unilateral oophorectomy History of Lizzy-en-Y gastric bypass History of surgery on arm Family History Father DM (diabetes mellitus) Asthma CVD (cardiovascular disease) Mother HTN (hypertension) DM (diabetes mellitus) Asthma CVD (cardiovascular disease) Brother No problems noted. Brother No problems noted. Sister Uterine cancer Sister No problems noted. Social History Alcohol intake: never Patient Tobacco Use Status: Never used Tobacco Sexual orientation: Straight/Heterosexual Gender identity: Female Female Reproductive History Menstrual Age of Menarche: 9 Physical Exam Vital Signs: Last Vital Signs Pulse 61 11/11/24 10:56 Resp 16 11/11/24 10:56 BP 117/65 11/11/24 10:56 Pulse Ox 99 11/11/24 10:56 Oxygen Delivery Method Room Air 11/11/24 10:56 BMI result Body Mass Index 35.7 Assessment & Plan Assessment & Plan (1) Spina bifida: Code(s): Q05.9 - Spina bifida, unspecified Category: Medical Plan Plan - Order MRI of the lumbar spine to evaluate spina bifida and facet joint condition - Patient is unable to participate in physical therapy due to pain, seeking MRI approval without trial of PT - Follow-up appointment to be scheduled after MRI completion Patient was informed and verbally consented to the use of an ambient scribe for clinic note documentation during this visit. Discussion Notes I discussed with the patient the plan to order an MRI of the lumbar spine to assess the spina bifida and facet joint condition. We talked about the challenges in participating in physical therapy due to pain, and I will document this to seek MRI approval. The patient was advised to schedule a follow-up appointment after the MRI is completed to discuss further management options. Patient Instructions - Schedule an MRI of your lower back as soon as possible - Call the office to schedule a follow-up appointment after the MRI - Continue taking tramadol as prescribed Orders: Orders MR lumbar spine wo con 11/11/24 Q05.9 - Spina bifida, unspecified Coding Level of Care Code New Pt Level 4 (52951) Diagnoses Spina bifida Q05.9
== END 2024-11-11 11:29 | disposition home or self-care (01) ==
LOC: HO.PMC 10:25
PROVIDERS: PCP Internal Medicine Geriatric Medicine; Visit Provider Internal Medicine
DX: Q05.9 Spina bifida, unspecified (principal)
CPT/HCPCS: 99204

== ENCOUNTER → 2024-11-11 10:24 | Outpatient (BNVA) | payer OTHER, SELFPAY | PROVIDERS: PCP Internal Medicine Geriatric Medicine; Visit Provider Internal Medicine | DX: M54.50 Low back pain, unspecified (principal); G89.29 Other chronic pain; Q05.9 Spina bifida, unspecified; M25.50 Pain in unspecified joint | CPT/HCPCS: 99202 ==

== ENCOUNTER 2024-11-17 10:35 | Outpatient (REF) | payer OTHER, SELFPAY ==
--- NOTE | ~2024-11-17 | XR_ITS ---
EXAMINATION: XR CERVICAL SPINE CLINICAL INFORMATION: PAIN IN RIGHT UPPER ARM DECREASED R.O.M. COMPARISON: None available. TECHNIQUE: 3 views of the cervical spine were obtained. FINDINGS: Normal alignment. No compression fracture. Minimal narrowing of the disc space at C5-C6. Odontoid process is well aligned with the lateral masses of C1. Prevertebral soft tissues are unremarkable. XR/XR cervical spine 3V IMPRESSION: No significant degenerative changes. Electronically signed by: Miguel Nino MD 11/17/2024 12:21 PM EDT
--- NOTE | ~2024-11-17 | XR_ITS ---
EXAMINATION: XR ELBOW 3 VIEWS RIGHT HISTORY: R elbow pain, decreased ROM COMPARISON: There are no prior studies available for comparison. FINDINGS: Four views of the right elbow are submitted. Osseous mineralization is normal. There is no fracture or dislocation. The joint spaces are preserved. The soft tissues are unremarkable. There is no joint effusion. XR/XR elbow RT min 3V IMPRESSION: Unremarkable examination of the right elbow. Electronically signed by: Zaid Alejo MD 11/17/2024 12:16 PM EDT
--- OUTSIDE RECORDS SUMMARY | 2024-11-17 11:41 | XMS_ITS | Encounter Summary ---
Author Organization [employer] Address [address] [place] [address] [address] [place] [address] Care Team Providers Care Pin Attacher Name Role Phone Name, Hayder NOVAK Primary Care Provider [phone] Encounter Details Date Type Department Care Team [...] on filedocumented in this encounter Care Teams Pin Attacher Relationship Specialty Start Date End Date Name, MD Hayder [address] [place] [address] PCP - General Family Medicine 09/23/19 documented as of this encounter
== END 2024-11-17 10:36 | disposition home or self-care (01) ==
LOC: HO.HHCX 10:35
PROVIDERS: PCP Internal Medicine Geriatric Medicine; Visit Provider Family Medicine
DX: M79.621 Pain in right upper arm (principal); M25.521 Pain in right elbow
CPT/HCPCS: 72040; 73080

== ENCOUNTER → 2024-11-17 10:49 | Outpatient (BNV) | payer OTHER, SELFPAY | PROVIDERS: PCP Internal Medicine Geriatric Medicine; Visit Provider Radiology Diagnostic Radiology | DX: M50.322 Other cervical disc degeneration at C5-C6 level (principal); M25.521 Pain in right elbow | CPT/HCPCS: 72040; 73080 ==

== ENCOUNTER → 2024-12-22 07:49 | Outpatient (BNV) | payer OTHER, SELFPAY | PROVIDERS: PCP Internal Medicine Geriatric Medicine; Visit Provider Radiology Diagnostic Radiology | DX: M48.062 Spinal stenosis, lumbar region with neurogenic claudication (principal); Q06.8 Other specified congenital malformations of spinal cord | CPT/HCPCS: 72148 ==

== ENCOUNTER 2024-12-22 07:50 | Outpatient (REF) | payer OTHER, SELFPAY ==
--- OUTSIDE RECORDS SUMMARY | 2024-12-20 05:00 | XMS_ITS ---
Author Organization [facility] Address [address] [facility] [place] [address] Care Team Providers Care Cementer Machine Joiner Name Role Phone Name Hayder NOVAK Primary Care Provider Joan Torrez Unavailable [phone] Allergies Allergen (clinical drug ingredient) Drug/Non Drug Allergy documented on EMR Reaction Allergy Type Onset Date Status cyclobenzaprine Cyclobenzaprine Unknown Drug Allergy Active Iodine Unknown Drug Allergy Active Latex Latex Unknown Allergy Active norethindrone Norethindrone Unknown Drug Allergy Active Penicillin Unknown Drug Allergy Active REASON FOR VISIT Painful Toe(s) Medications Medication SIG (Take, Route, Frequency, Duration) Notes Start Date End Date Status Flovent HFA 110 MCG/ACT 2 puffs Inhalati on Twice a day Active Multi Max Active Loratadine 10 MG 1 tablet Orally Once a day; Duration: 30 day(s) Active Iron Combinations - as directed Orally Not-Taking Docusate Sodium 100 MG 1 capsule as need ed Orally Once a day; Duration: 30 day(s) Not-Taking Vitamin D3 25 MCG (1000 UT) 1 capsule Or ally Once a day; Duration: 30 day(s) Active Dicyclomine HCl 20 MG 1 tablet Orally Three times a day; Duration: 30 day(s) Not-Taking AFO-fixed . 1 . Wear daily to left foot 08/12/2022 Active Zolpidem Tartrate 10 MG 1 tablet at bedt joey as needed Orally Once a day Active Vitron-C Active QUEtiapine Fumarate 25 MG 1 tablet at be dtime Orally Once a day; Duration: 30 day(s) Active Albuterol Active Vitamin A Active Ventolin HFA Active traMADol HCl 50 MG 1 tablet as needed Orally Once a day Active Stool Softener Activ e Escitalopram Oxalate 20 MG 1 tablet Oral ly Once a day Active medroxyPROGESTERone Acetate 10 MG 1 tablet with food Orally Once a day Active Baclofen 10 MG 1 tablet as needed Orally Twice a day Active Social History Tobacco Use: Social History Observation Description Date Details (start date - stop date) Never Smoker NA - NA Tobacco use other than smoking: Question Answer Notes Are you an other tobacco user? No Tobacco Control (Standard) Question Answer Notes Tobacco use: Nonsmoker Additional Findings: Tobacco non-user Current no nsmoker AUDIT-C (Standard) Question Answer Notes Did you have a drink containing alcohol in the p ast year? No Points 0 Interpretation Negative Vital Signs Blood pressure systolic 120 mm Hg 12/21/19 25 Blood pressure diastolic 80 mm Hg 025 Height 5ft 1in in 12/20/2024 Weight 180 lbs 12/20/2024 BMI 34.01 kg/m2 12/20/2024 Encounters Encounter Location Date Provider Diagnosis [facility] [place] [address] [place] [address] 12/20/2024 Joan Grimaldo Equinus contracture of left ankle M24.572 ; Contracture, left foot M24.575 ; Spina bifida, unspecified hydrocephalus presence, unspecified spinal region Q05.9 ; Hammer toe of left foot M20.42 and Gait abnormality R26.9 Assessments Encounter Date Diagnosis (ICD Code) Assessment Notes Treatment Notes Treatment Clinical Notes Section Notes 12/20/2024 Equinus contracture of left ankle (ICD-10 - M24.572) 12/20/2024 Contracture, left foot (ICD-10 - M24.575) 12/20/2024 Spina bifida, unspecified hydrocephalus presence, unspecified spinal region (ICD-10 - Q05.9) 12/20/2024 Hammer toe of left foot (ICD-10 - M20.42) 12/20/2024 Gait abnormality (ICD-10 - R26.9) Plan Of Treatment Next Appt Details Follow Up: 1 Year, Reason: Provider Name:Joan grajeda, 12/20/2025 09:00:00 AM, [address] [place], [address], Progress Notes * Cindi VAIL TDOB:[birth year] (44 yo F)Acc No.[id number]:12/20/2024 Progress Note Patient: Cindi MIRELES Provider: Arley Grimaldo DPM :1980 A ge:44 Y S ex:Female Date:12/20/2024 Address:[address] [place] [address] [address], [place], [id number] Pcp:Hayder Alvarez MD Subjective: * Chief Complaints: * P ainful Toe(s) * HPI: T oe pain: Nature: t enderness, contracture, difficulty walking. Location: 2 -5 Left foot. Duration: s darell . Onset/Cause: s chen bifida. Course: p rogressive. Aggravated by: s hoes, any pressure , standing/walking.? Treatments: c hange in shoes, braces as a kid, physical therapy, AFO's to both- pt presents today without them, Baclofen for muscle spasms. * ROS: G eneral/Constitutional: Nausea d enies. V omiting d enies. H mireille Thirst d enies. L oss appetite d enies. C hills d enies. F atigue d enies.?Fever d enies. N ight Sweats d enies. U nexplained weight loss d enies. U nexplained weight gain d enies. H EENTM: Dentures d enies. D izziness d enies. G lasses/contacts a dmits. R etinopathy d enies. B lurred/double vision d enies. T MJ?denies. D ischarge/drainage d enies. I mplants d enies. S ore throat d enies. D ental implants d enies. H forest of hearing d enies. D ifficulty chewing/swallowing/speaking d enies. N ose bleeds d enies. S ore mouth d enies. ? R espiratory: On Oxygen d enies. P neumonia/pleurisy d enies.?Bronchitis d enies. E mphysema d enies. C oughing d enies. C ough blood?denies. S hortness of breath a dmits. W heezing a dmits. C ardiovascular: Pacemaker d enies. M DESIZING PAD OPERATOR d enies. W PW d enies. C HF d enies. H eart attack d enies. S eptal defect d enies. R apid beat d enies. C hest pain d enies. A trial Fib. d enies. M urmur/Palpitations d enies. G astrointestinal: Hemorrhoids d enies. S tomach/Abdominal pain d enies. D ark blood stool d enies. I rritable bowel d enies. C onstipation d enies. D iarrhea d enies. H ematology: Swelling d enies. C lots d enies. V aricose Veins d enies. B ruising d enies. B leeding problem d enies. G enitourinary: Blood urine d enies. F requent/Painfu/urination/bladder control d enies. K idney stones d enies. I nfection (UTI) d enies. N ephropathy d enies. s ex trans dis (STD) d enies. P rostate d enies. M usculoskeletal: Hammertoes d enies. B unions d enies. B ack Pain a dmits. M uscle Cramps/ Resting a dmits. M uscle cramps / walking a dmits.?Generalized aches and pains d enies. W eakness d enies. I nteg.: Florentino d enies. S cars d enies. C orns/calluses?denies. I ngrown nails d enies. P ainful nails d enies. O pen Sores d enies. R ashes d enies. N eurologic: Difficulty sleeping a dmits. B rain disorder d enies. N umbness a dmits. B alance trouble a dmits. C onfusion d enies. F ainting/blackouts a dmits. T ingling d enies. T remors d enies. * Medical History: * Surgical History: g astric bypass arm * Hospitalization/Major Diagno stic Procedure: D enies Past Hospitalization * Family History: M other: alive, asthma, hypertension, cardiovascular, foot problems, diagnosed with Other malignant neoplasm of unspecified site, Diabetic - NIDDM, Unspecified essential hypertension, Other specified conditions influencing health status, Family history of arthritis. F ather: alive, cardiovascular, asthma, foot problems, diagnosed with Diabetic - NIDDM, Unspecified essential hypertension, Other specified conditions influencing health status, Family history of arthritis. * Social History: T obacco Use: T obacco use other than smoking A re you an other tobacco user? N o Tobacco Control (Standard) T obacco use: N onsmoker A dditional Findings: Tobacco non-user C urrent nonsmoker M iscellaneous: C affeine: yes, frequency:, 1-2 cups per day. Children: no. Exercise: yes, walking. Marital status: . Occupation: disabled. D rug/Alcohol: A MATI-C (Standard) D id you have a drink containing alcohol in the past year? N o P oints 0 I nterpretation N egative * Medications: T akingBaclofen 10 MG Tablet 1 tablet as needed Orally Twice a day medroxyPROGESTERone Acetate 10 MG Tablet 1 tablet with food Orally Once a day Escitalopram Oxalate 20 MG Tablet 1 tablet Orally Once a day Stool Softener Albuterol QUEtiapine Fumarate 25 MG Tablet 1 tablet at bedtime Orally Once a day traMADol HCl 50 MG Tablet 1 tablet as needed Orally Once a day Ventolin HFA Vitamin A Vitamin D3 25 MCG (1000 UT) Capsule 1 capsule Orally Once a day Vitron-C Zolpidem Tartrate 10 MG Tablet 1 tablet at bedtime as needed Orally Once a day AFO-fixed . Ankle-Foot Orthotic 1 . Wear daily to left foot Flovent HFA 110 MCG/ACT Aerosol 2 puffs Inhalation Twice a day Loratadine 10 MG Tablet 1 tablet Orally Once a day Multi Max Taking Baclofen 10 MG Tablet 1 tablet as needed Orally Twice a day Taking medroxyPROGESTERone Acetate 10 MG Tablet 1 tablet with food Orally Once a day Taking Escitalopram Oxalate 20 MG Tablet 1 tablet Orally Once a day Taking Stool Softener Taking Albuterol Taking QUEtiapine Fumarate 25 MG Tablet 1 tablet at bedtime Orally Once a day Taking traMADol HCl 50 MG Tablet 1 tablet as needed Orally Once a day Taking Ventolin HFA Taking Vitamin A Taking Vitamin D3 25 MCG (1000 UT) Capsule 1 capsule Orally Once a day Taking Vitron-C Taking Zolpidem Tartrate 10 MG Tablet 1 tablet at bedtime as needed Orally Once a day Taking AFO-fixed . Ankle-Foot Orthotic 1 . Wear daily to left foot Taking Flovent HFA 110 MCG/ACT Aerosol 2 puffs Inhalation Twice a day Taking Loratadine 10 MG Tablet 1 tablet Orally Once a day Taking Multi Max Not-Taking/PRNDicyclomine HCl 20 MG Tablet 1 tablet Orally Three times a day Docusate Sodium 100 MG Capsule 1 capsule as needed Orally Once a day Iron Combinations - Tablet as directed Orally Medication List reviewed and reconciled with the patientNot-Taking/PRN Dicyclomine HCl 20 MG Tablet 1 tablet Orally Three times a day Not-Taking/PRN Docusate Sodium 100 MG Capsule 1 capsule as needed Orally Once a day Not-Taking/PRN Iron Combinations - Tablet as directed Orally Medication List reviewed and reconciled with the patient * Allergies: C yclobenzaprineIodineLatexNorethindronePenicillinyes[Allergies Verified] Objective: * Vitals: H t: 5ft 1in, Wt:180, BMI:34.01, Shoe size: 7-7.5, BP:120/80mm Hg, Ht-cm: 154.94 cm, Wt-k.65 kg. * Examination: G eneral Examination: GENERAL APPEARANCE: R paulinaeals a pleasant, alert, well-nourished, well-developed, well hydrated individual, who demonstrates proper attention to hygiene/body habitus, and is in no acute distress, Pt serves as own h istorian for office visit today. ORIENTED: p erson, place, and time. N eurological: SENSORY: N eurological exam reveals intact sensorium, pain sensation normal, vibration sensation intact, pinprick sensation is normal in the lower extremities, Pt denies, anesthesia, burning, paresthesia, tingling, B/L. V ascular: DP PULSES (B): 3 /4, B/L. PT PULSES (B): 3 /4, B/L. CAPILLARY FILL TIME: i mmediate, all digits, B/L. TROPHIC CONDITION-TEXTURE/ELASTICITY/TURGOR/HAIR GROWTH (B):?normal, B/L. TEMPERTURE GRADIENT (C): w arm to cool, proximal to distal, B/L. PIGMENTATION: n ormal, B/L. EDEMA (C): a bsent, B/L. D ermatologic: SKIN FINDINGS: S kin exam reveals normal texture, elasticity, and turgor. There are no masses. The interspaces are clear. O rthopedic: MUSCLE STRENGTH: D ecreased with DF , Left. GAIT ABNORMALITY: a ntalgic , unstable. FOOT MORPHOLOGY: D ecreased Ankle joint dorsiflexion ROM, knee flexed , Decreased Ankle joint dorsiflexion ROM, knee extended , LEFT. DIGITAL DEFORMITIES: D igital contracture, PIPJ, 2-5 Left , incompl-reducible with WB, or to push-up test, no over, nor underlapping , MPJ Contracture/Dorsal subluxation , 2-5 Left. FOOTWEAR EVALUATION: f lip flops today. ? Assessment: * Assessment: 1. E quinus contracture of left ankle - M24.572 S pecify :Chronic problem, Stable (1=3,2=4) 2 . C ontracture, left foot - M24.575 (Primary) 3 . S chen bifida, unspecified hydrocephalus presence, unspecified spinal region - Q05.9 4 . Hammer toe of left foot - M20.42 S pecify :Chronic problem, Stable (1=3,2=4) 5 . G ait abnormality - R26.9 Plan: * Treatment: * Procedure Codes: * Preventive Medicine: Counseling: D iscussion: - 13: Office or other outpatient visit for the [...] have encouraged the patient to call the office. B ioMech.: I discussed the Pts foot biomechanics with them and how it relates to their problem, Continue AFO brace foot/leg to help with gait and decrease fall; gave pt RX for adjustment to AFO to reduce pressure areas and friction. D igital Treatment: I explained to the patient the possible etiologies [...] success were answered to their verbally confirmed satisfaction. P odiatric Counseling: I explained the etiology of the patient's podiatric pathology and the usual treatment plan. The patient was made aware of the adverse risks and sequelae associated with their medical condition(s) and the treatment necessary to avoid those complications.. * Follow Up: 1 Year * Images: * Sign off status: Completed true * Provider: Arley Grimaldo, BISMARK Date: 0 12/20/2024 Generated for Mindy yip/Christiano/Martin on: 12/22/2024 07:55 AM EDT History and Physical Notes * HPI (History of Present Illness) Category Sub-Category Detail Notes Category Not es Toe pain Nature: tenderness, contracture, dif ficulty walking Location: 2-5 Left foot Duration: since Onset/Cause: spina bifida Course: progressive Aggravated by: shoes, any pressure , standing/walking Treatments: change in shoes, bra lopez as a kid, physical therapy, AFO's to both- pt presents today without them, Baclofen for muscle spasms Examination Category Sub-Category Detail Notes Category Not [...] ROM, knee extended , LEFT FOOTWEAR EVALUATION: flip flops today DIGITAL DEFORMITIES: Digital contracture , PIPJ, 2-5 [...]
--- NOTE | ~2024-12-22 | MR_ITS ---
CLINICAL HISTORY: Q05.9 - Spina bifida, unspecified MR lumbar spine without gadolinium Comparison: None Findings: Transitional lumbosacral vertebra presumed to be S1 for descriptive purposes. Congenital vertebral abnormality seen as partial fusion of the vertebrae at L1/L2 (there is also spina bifida of the posterior vertebral elements at L4 level) and less conspicuously at L3/L4 levels. Low-lying +/-tethered conus medullaris terminating at lower L3 level. Focal central syrinx at T12 level measuring up to 1 x 3 mm in the axial plane and 15 mm in length. 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 L5/S1: Slnm-sa-znmkphmn left neural foraminal disc narrowing. L4/L5: Prominent right-sided facet hypertrophic changes and mild bilateral neural foraminal stenosis. Posterior central vertebral cleft. L2/L3: Up to 4.5 mm (AP dimension) central disc osteophyte without significant central canal compromise. Hvvquclz-hn-qcxypp bilateral neural foraminal stenosis. L1/L2: Fkqt-lh-pkvrkxds bilateral neural foraminal stenosis. IMPRESSION: 1. Low-lying +/-tethered conus medullaris terminating at lower L3 level. Focal central syrinx at T12 level. 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 2. Neural foraminal stenosis most conspicuous and eoychweo-fz-fxetlh at L2/L3 level. 3. No significant central canal compromise. This document has been electronically signed by: Chandrika Dobbs MD on 12/23/2024 10:02:24
--- OUTSIDE RECORDS SUMMARY | 2024-12-22 07:55 | XMS_ITS | Encounter Summary ---
Author Organization [employer] Address [address] [facility] 7t [place] [address] Care Team Providers Care Instructor Military Science Name Role Phone Name, Hayder NOVAK Primary Care Provider [phone] Reason for Visit * Reason Comments Med Refill Encounter Details Date Type Department Care Team ([facility] st Contact Info) Description 08/11/2022 Refill [facility] [address] [place], [place] [phone] Name, MD Hayder [address] [place] [address] Anxiety; Insomnia, unspecified type Social History Tobacco [...] Care Team (Late st Contact Info) Description 02/08/2025 10:30 AM EST Office Visit [facility] [address] [place] [address] Name, [place] [address] documented as of this encounter Visit Diagnoses Diagnosis Anxiety Anxiety state, unspecified Insomnia, unspecified type documented in this encounter Care Teams Instructor Military Science Relationship Specialty Start Date End Date Name, [place] [address] PCP - General Family Medicine 09/23/19 documented as of this encounter
--- OUTSIDE RECORDS SUMMARY | 2024-12-22 07:55 | XMS_ITS | Encounter Summary ---
Author Organization [employer] Address [address] [facility] 7t [place] [address] Care Team Providers Care Tool Room Attendant Name Role Phone Name, Hayder NOVAK Primary Care Provider [phone] Encounter Details Date Type Department Care Team ([facility] st Contact Info) Description 08/02/2024 Orders Only [facility] [address] [place], [place] [phone] Pauline Walton Social History Tobacco Use Types [...] Description 02/08/2025 10:30 AM EST Office Visit [facility] [address] [place] [phone] Name, MD Hayder [address] [place] [phone] documented as of this encounter Procedures Procedure Name Priority Date/Time Associated Diagnosis Comments HPV MRNA E6/E7 REFLEX TO HPV 16, 18/45 Routine 02/15/2024 12:00 AM EST documented in this encounter Results * HPV mRNA E6/E7 w/Reflex to HPV Genotypes 16, 18/45 (02/15/2024 12:00 AM EST) us Historical Provider LAB CYTOLOGY ORDERABLES F inal Result [facility] [address] [place] [phone] documented in this encounter Visit Diagnoses Not on filedocumented in this encounter Additional Health Concerns Assessment Noted Time PHQ-9 Depression Total Score: 0 09/22/19 24 11:47 AM EDT documented as of this encounter Care Teams Tool Room Attendant Relationship Specialty Start Date End Date Name, MD Hayder [address] [place] [phone] PCP - General Family Medicine 09/23/19 documented as of this encounter
--- OUTSIDE RECORDS SUMMARY | 2024-12-22 07:55 | XMS_ITS | Encounter Summary ---
Author Organization [employer] Address [address] [facility] 7t [place] [address] Care Team Providers Care Language Instructor Name Role Phone Name, Hayder NOVAK Primary Care Provider [phone] Encounter Details Date Type Department Care Team ([facility] st Contact Info) Description 08/25/2022 Abstract [facility] MED[facility] [address] [place], [place] [phone] Name, MD Hayder [address] [place] [address] Social History Tobacco Use Types Packs/Day Years [...] AM EDT documented as of this encounter Functional Status * Over the past 2 weeks, how often have you been bothered by any of the following problems? Question Answer Date of Assessment Author Patient Health Questionnaire-2 Score 0 08/05 9:25 AM Amaya Griffin * Over the past 2 weeks, how often have you been bothered by any of the following problems? Question Answer Date of Assessment Author Little interest or pleasure in doing things Not at all 08/26/2022 9:25 AM Meryl Griffin Feeling down, depressed, or hopeless Not at all 08/26/2022 9:25 AM EDT Meryl Del Rio Trouble falling or staying asleep, or sleeping too much Not at all 08/26/2022 9:25 AM EDT Amaya Lundberg Feeling tired or having clint le energy Not at all 08/26/2022 9:25 AM EDT Meryl Del Rio Poor appetite or overeating Not at all 08/26/2022 9: 25 AM Amaya Griffin Feeling bad about yourself - or that you are a failure or have let yourself or your family down Not at all 08/26/2022 9:25 AM EDT Amaya Weinstein Trouble concentrating on thi ngs, such as reading the newspaper or watching television Not at all 08/26/2022 9:25 AM LANDRYT Meryl Del Rio Moving or speaking so slowly that other people could have noticed? Or the opposite - being so fidgety or restless that you have been moving around a lot more than usual. Not at all 08/26/2022 9:25 AM Meryl Griffin Thoughts that you would be better off or hurting yourself in some way Not at all 08/26/2022 9:25 AM Sharee Griffin Patient Health Questionnaire -9 Score 0 08/26/2022 9:25 AM EDMeryl Gallardo documented as of this encounter Plan of Treatment Upcoming Encounters Date Type Department Care Team (Late st Contact Info) Description 02/08/2025 10:30 AM EST Office Visit [facility] MED[facility] [address] [place] [address] [phone] Name, MD Hayder [address] [place] [address] documented as of this encounter Procedures Procedure Name Priority Date/Time Associated Diagnosis Comments HM PAP/HPV Routine 06/17/2021 12:00 AM EDT documented in this encounter Results * Pap Smear (06/17/2021 12:00 AM EDT) Historical Provider HEALTH MAINTENANCE Final Result documented in this encounter Visit Diagnoses Not on filedocumented in this encounter Care Teams Language Instructor Relationship Specialty Start Date End Date Name, MD Hayder [address] [place] [id number] PCP - General Family Medicine 09/23/19 documented as of this encounter
--- OUTSIDE RECORDS SUMMARY | 2024-12-22 07:55 | XMS_ITS | Encounter Summary ---
Author Organization [employer] Address [address] [place] [address] [address] [place] [address] Care Team Providers Care Diesel Tractor Engine Mechanic Name Role Phone Name, Hayder ONVAK Primary Care Provider [phone] Encounter Details Date Type Department Care Team (Late st Contact Info) Description 08/22/2022 Abstract [facility] MED[facility] [address] [place] [address] [phone] NameHayder MD [address] [place] [address] [phone] Social History Tobacco Use Types Packs/Day Years [...] Description 02/08/2025 10:30 AM EST Office Visit [facility] [address] [place] [address] [phone] NameHayder MD [address] [place] [address] [phone] documented as of this encounter Visit Diagnoses Not on filedocumented in this encounter Care Teams Diesel Tractor Engine Mechanic Relationship Specialty Start Date End Date Name, MD Hayder [address] [place] [address] PCP - General Family Medicine 09/23/19 documented as of this encounter
--- OUTSIDE RECORDS SUMMARY | 2024-12-22 07:55 | XMS_ITS | Encounter Summary ---
Author Organization [facility] Address [address] [place] [address] [address] [place] [address] Care Team Providers Care Saw Sharpener Name Role Phone Name, Hayder NOVAK Primary Care Provider [phone] Encounter Details Date Type Department Care Team ([facility] Contact Info) Description 04/29/2022 Orders Only [facility] [address] [place] [address] [phone] Rosio Morales LPN Social History Tobacco Use [...] Description 02/08/2025 10:30 AM EST Office Visit [facility] [address] [place] [address] [phone] Hayder Alvarez MD [address] [place] [address] documented as of this encounter Visit Diagnoses Not on filedocumented in this encounter Care Teams Saw Sharpener Relationship Specialty Start Date End Date NameHayder MD [address] [place] [address] PCP - General Family Medicine 09/23/19 documented as of this encounter
--- OUTSIDE RECORDS SUMMARY | 2024-12-22 07:55 | XMS_ITS | Encounter Summary ---
Author Organization [employer] Address [address] [place] [address] [address] [place] [address] Care Team Providers Care Line Producer Name Role Phone Name, Hayder NOVAK Primary Care Provider [phone] Encounter Details Date Type Department Care Team (Late st Contact Info) Description 01/07/2023 Abstract [facility] [address] [place], [place] [phone] Pauline Walton Social History Tobacco Use Types [...] Description 02/08/2025 10:30 AM EST Office Visit [facility] [address] [place], [place] [phone] Name, MD Hayder [address] [place], [place] [phone] documented as of this encounter Visit Diagnoses Not on filedocumented in this encounter Additional Health Concerns Assessment Noted Time PHQ-9 Depression Total Score: 0 05/23/20 23 9:25 AM EDT documented as of this encounter Care Teams Line Producer Relationship Specialty Start Date End Date Name, MD Hayder [address] [place] [address] PCP - General Family Medicine 09/23/19 documented as of this encounter
--- OUTSIDE RECORDS SUMMARY | 2024-12-22 07:55 | XMS_ITS | Encounter Summary ---
Author Organization [employer] Address [address] [place] [address] [address] [place] [address] Care Team Providers Care Datapower Developer Name Role Phone Name, Hayder NOVAK Primary Care Provider [phone] Encounter Details Date Type Department Care Team (Latest Contact Info) Description 01/23/2021 Abstract [facility] CONVERSIONS Dental, Provider, DDS Social History [...] 10:30 AM EST Office Visit [facility] MEDICINE [address] [place] [address] NameHayder MD [address] [place] [address] documented as of this encounter Visit Diagnoses Not on filedocumented in this encounter Care Teams Datapower Developer Relationship Specialty Start Date End Date Hayder Alvarez MD [address] [place] [address] PCP - General Family Medicine 09/23/19 documented as of this encounter
--- OUTSIDE RECORDS SUMMARY | 2024-12-22 07:55 | XMS_ITS | Encounter Summary ---
Author Organization [employer] Address [address] [place] [address] [address] [place] [address] Care Team Providers Care Advanced Manufacturing Vice President Name Role Phone Name, Hayder NOVAK Primary Care Provider [phone] Reason for Visit * Reason Onset Date Comments Med Refill Too soon for Ambien Refill 04/29/2022 Refil l Due 05/07/22 Encounter Details Date Type Department Care Team ([facility] Contact Info) Description 04/29/[address] [facility] [address] [place] [id number] Hayder Alvarez MD [address] [place] [address] [phone] Social History Tobacco Use Types Packs/Day Years [...] Department Care Team (Late Contact Info) Description 02/08/2025 10:30 AM EST Office Visit [facility] [address] [place] [phone] NameHayder MD [address] [place] [address] documented as of this encounter Visit Diagnoses Not on filedocumented in this encounter Care Teams Advanced Manufacturing Vice President Relationship Specialty Start Date End Date Name, MD Hayder [address] [place] [address] PCP - General Family Medicine 09/23/19 documented as of this encounter
--- OUTSIDE RECORDS SUMMARY | 2024-12-22 07:55 | XMS_ITS | Encounter Summary ---
Author Organization [employer] Address [address] [facility] 7t [place] [address] Care Team Providers Care Associate Web Developer Name Role Phone Name, Hayder NOVAK Primary Care Provider [phone] Reason for Visit * Reason Comments Med Refill Encounter Details Date Type Department Care Team ([facility] st Contact Info) Description 04/03/2023 Refill [facility] [address] [place], [place] [phone] Name, MD Hayder [address] [place] [address] Asthma, unspecified asthma severity, unspecified whether complicated, [...] 10:30 AM EST Office Visit [facility] [address] [place] [address] Name, MD Hayder [address] [place] [address] documented as of this encounter Visit Diagnoses Diagnosis Asthma, unspecified asthma severity, unspecified whether complicated, unspecified whether persistent documented in this encounter Additional Health Concerns Assessment Noted Time PHQ-9 Depression Total Score: 0 08/27/19 23 9:25 AM EDT documented as of this encounter Care Teams Associate Web Developer Relationship Specialty Start Date End Date NameHayder MD [address] [place] [phone] PCP - General Family Medicine 09/23/19 documented as of this encounter
--- OUTSIDE RECORDS SUMMARY | 2024-12-22 07:55 | XMS_ITS | Encounter Summary ---
Author Organization [employer] Address [address] [facility] 7t [place] [address] Care Team Providers Care Cardiovascular Radiologic Technologist Name Role Phone Name, Hayder NOVAK Primary Care Provider [phone] Reason for Visit * Reason Comments Med Refill Encounter Details Date Type Department Care Team ([facility] st Contact Info) Description 03/24/2023 Refill [facility] [address] [place], [place] [phone] Name, MD Hayder [address] [place] [address] Social History Tobacco Use Types Packs/Day Years [...] Description 02/08/2025 10:30 AM EST Office Visit [facility] [address] [place] [address] Name, MD Hayder [address] [place] [address] documented as of this encounter Visit Diagnoses Not on filedocumented in this encounter Additional Health Concerns Assessment Noted Time PHQ-9 Depression Total Score: 0 08/27/19 23 9:25 AM EDT documented as of this encounter Care Teams Cardiovascular Radiologic Technologist Relationship Specialty Start Date End Date Name, MD Hayder [address] [place] [address] PCP - General Family Medicine 09/23/19 documented as of this encounter
--- OUTSIDE RECORDS SUMMARY | 2024-12-22 07:55 | XMS_ITS | Encounter Summary ---
Author Organization [employer] Address [address] [place] [address] [address] [place] [address] Care Team Providers Care Label Operator Name Role Phone Name, Hayder NOVAK Primary Care Provider [phone] Encounter Details Date Type Department Care Team (Latest Contact Info) Description 09/10/2018 Abstract [facility] CONVERSIONS Dental, Provider, DDS Social History Tobacco [...] Description 02/08/2025 10:30 AM EST Office Visit [facility] [address] [place] [address] NameHayder MD [address] [place] [address] documented as of this encounter Visit Diagnoses Not on filedocumented in this encounter Care Teams Label Operator Relationship Specialty Start Date End Date Hayder Alvarez MD [address] [place] [address] PCP - General Family Medicine 09/23/19 documented as of this encounter
--- OUTSIDE RECORDS SUMMARY | 2024-12-22 07:56 | XMS_ITS | Patient Health Record ---
[facility] Address [address] [place] [address] Care Team Providers Care Computer Instructor Name Role Phone Name Hayder NOVAK Primary Care Provider Joan Torrez Unavailable [phone] Allergies Allergen (clinical drug ingredient) Drug/Non Drug Allergy documented on EMR Reaction Allergy Type Onset Date Status cyclobenzaprine Cyclobenzaprine Unknown Drug Allergy Active Iodine Unknown Drug Allergy Active Latex Latex Unknown Allergy Active norethindrone Norethindrone Unknown Drug Allergy Active Penicillin Unknown Drug Allergy Active Reason For Referral No Information Medications Medication SIG (Take, Route, Frequency, Duration) Notes Start Date End Date Status medroxyPROGESTERone Acetate 10 MG 1 tablet with food Orally Once a day Active Baclofen 10 MG 1 tablet as needed Orally Twice a day Active QUEtiapine Fumarate 25 MG 1 tablet at be dtime Orally Once a day; Duration: 30 day(s) Active Flovent HFA 110 MCG/ACT 2 puffs Inhalati on Twice a day Active Albuterol Active Stool Softener Activ e Escitalopram Oxalate 20 MG 1 tablet Oral ly Once a day Active Vitamin D3 25 MCG (1000 UT) 1 capsule Or ally Once a day; Duration: 30 day(s) Active Vitamin A Active Ventolin HFA Active Multi Max Active traMADol HCl 50 MG 1 tablet as needed Orally Once a day Active Loratadine 10 MG 1 tablet Orally Once a day; Duration: 30 day(s) Active Dicyclomine HCl 20 MG 1 tablet Orally Three times a day; Duration: 30 day(s) Not-Taking AFO-fixed . 1 . Wear daily to left foot 08/12/2022 Active Zolpidem Tartrate 10 MG 1 tablet at bedt joey as needed Orally Once a day Active Vitron-C Active Iron Combinations - as directed Orally Not-Taking Docusate Sodium 100 MG 1 capsule as need ed Orally Once a day; Duration: 30 day(s) Not-Taking Social History Tobacco Use: Social History Observation Description Date Details (start date - stop date) Never Smoker NA - NA Alcohol Screen Question Answer Notes Did you [...] ast year? No Points 0 Interpretation Negative Problems Problem Type SNOMED Code ICD Code Onset Dates Problem Status W/U Status Risk Notes Problem Contracture of joint of left foot (disorder) (73987133239592 7) Contracture, left foot (M24.575) Active confirmed Problem Acquired hammer toe of right foot (19945924655502 05) Hammer toe of right foot (M20.41) Active confirmed Problem Acquired hammer toe of left foot (09010684589245 03) Hammer toe of left foot (M20.42) Active confirmed Problem Gait abnormality (58869099) Gait abnormality (R26.9) Active confirmed Problem Equinus contracture of left ankle (M24.572) Active confirmed Problem Spina bifida (84943919) Spina bifida, unspecified hydrocephalus presence, unspecified spinal region (Q05.9) Active confirmed Vital Signs Blood pressure diastolic 80 mm Hg 12/20/2024 Height 5ft 1in in 12/20/2024 Blood pressure systolic 120 mm Hg 12/20/2024 Weight 180 lbs 12/20/2024 BMI 34.01 kg/m2 12/20/2024 Encounters Encounter Location Date Provider Diagnosis [facility] [address] [place] [address] 12/20/2024 Joan Grimaldo Equinus contracture of left [...] 08/12/2022 Next Appt Details Provider Name:Joan grajeda, 12/20/2025 09:00:00 AM, [address] [place] [address], [phone], Insurance Providers Payer Name Payer Address Payer Phone Subscriber Number Group Number Insured Name Patient Relationship to Insured Coverage Start Date Coverage End Date [facility] [employer] Claims [address] [facility] [place] [address] [id number] Cindi Murdock Self - patient is the insured Medical (General) History Medical History History ICD Code Anxiety Arthritis asthma Back,Hip,and Knee pain Broken bones covid-19 Macular degeneration Migraines Reflux ( GERD) Seizures Spina bifida uterine bleeding Surgical History Surgery Date(Month/Year) gastric bypass arm
--- OUTSIDE RECORDS SUMMARY | 2024-12-22 07:56 | XMS_ITS | Clinical Summary ---
Author Organization [employer] Address [address] [place] [address] 7 [place] [address] Care Team Providers Care Oil And Gas Superintendent Name Role Phone Name, Hayder NOVAK Primary Care Provider [phone] Allergies Active Allergy Reactions Criticality Noted Date Comments Blue Dyes (Parenteral) Rash Low 07/29/2022 Cyclobenzaprine High 05/02/2010 Other reaction(s): edema Other reaction(s): H/A,PALPITATIONS, Unknown Iodine Anaphylaxis High 05/02/2010 Other reaction(s): unspecified Other reaction(s): Unknown Lactose 07/29/2022 Other reaction(s): Unknown Latex Rash,Unknown High 03/14/2022 Other reaction(s): HIVES,ITCHING Other reaction(s): [...] by mouth 2 times daily. 3 Active baclofen (Lioresal) 10 MG tablet Take 1 tablet (10 mg) by mouth 2 times daily. 60 tablet 11 4 Active albuterol (2.5 MG/3ML) 0.083% nebulizer solution INHALE 1 AMPULE USING A NEBULIZER BY MOUTH EVERY 6 HOURS 90 mL 11 4 Active D3-1000 25 MCG (1000 UT) capsuleIndicati ons:Vitamin D deficiency TAKE 1 CAPSULE BY MOUTH EVERY MORNING 90 capsule 4 Active SUMAtriptan (Imitrex) 25 MG tablet Take 1 tablet (25 mg) by mouth 1 (one) time if needed for migraine for up to 27 doses. May repeat dose once in 2 hours if no relief. Do not exceed 2 doses in 24 hours. 9 tablet 2 5 Active topiramate (Topamax) 25 MG tablet Take 1 tablet (25 mg) by mouth 2 times daily. 60 tablet 11 5 026 Active loratadine (Claritin) 10 MG tablet Take 1 tablet (10 mg) by mouth Once per day. 90 tablet 5 Active QUEtiapine (SEROquel) 25 MG tabletIndicatio ns:Anxiety Take 1 tablet (25 mg) by mouth at bedtime. 30 tablet 2 5 Active zolpidem (Ambien) 10 MG tabletIndicatio ns:Insomnia, unspecified type Take 1 tablet (10 mg) by mouth at bedtime. 30 tablet 2 5 Active lidocaine (Xylocaine) 5 % ointmentIndicat ions:Rib pain Apply topically if needed for mild pain or moderate pain. 50 g 1 5 026 Active Ventolin HFA 108 (90 Base) MCG/ACT inhalerIndicati ons:Asthma, unspecified asthma severity, unspecified whether complicated, unspecified whether persistent INHALE 2 PUFFS BY MOUTH EVERY 4 TO 6 HOURS NEEDED 18 g 4 5 Active methylPREDNISol one (Medrol Dospak) 4 MG tablets Follow schedule on package instructions 21 tablet 5 Active Diclofenac Sodium 1 % gel Apply 2 g topically if needed in the morning, at noon, in the evening, and at bedtime (pain). 150 g 3 5 Active naproxen (Naprosyn) 500 MG tablet Take 1 tablet (500 mg) by mouth if needed in the morning and at bedtime for mild pain. 40 tablet 1 5 026 Active acetaminophen (Tylenol 8 Hour) 650 MG ER tablet Take 1 tablet (650 mg) by mouth every 8 (eight) hours if needed for mild pain. Do not crush, chew, or split. 40 tablet 1 5 025 Active Problems Problem Noted Date Diagnosed [...] Encounters Date Type Department Care Team Description 11/18/2024 Telephone [facility] [address] [place] [address] Blair Talley MA oct recalls 11/17/2024 10:20 AM EDT Office Visit [facility] [place] [address] Isabel Osorio DO Pain in right upper arm (Primary Dx); Right elbow pain 11/17/2024 Telephone [facility] [place] [address] Hayder Alvarez MD Durable Medical Equipment 11/17/2024 Orders Only [facility] [address] [place] [phone] Isabel Osorio DO 11/17/2024 Travel from Last 3 Months Immunizations Immunization Administration Dates Next Due Influenza injectable quadriv [...] your housing situation today? I have heather keli 09/22/[address] you li [...] Sign Reading Time Taken Comments Blood Pressure 104/60 11/17/2024 10:16 AM EDT Pulse 70 11/17/2024 10:16 AM EDT Temperature 37.1 C (98.8 F) 11/17/2024 10:16 AM EDT Respiratory Rate 20 11/17/2024 10:16 AM EDT Oxygen Saturation 100% 11/17/2024 10:16 AM EDT Inhaled Oxygen Concentration - - Weight 87.1 kg (192 lb) 11/17/2024 10:16 AM EDT Height 154.9 cm (5' 1 ) 11/17/2024 10:16 AM EDT Body Mass Index 36.28 11/17/2024 10:16 AM EDT Plan of Treatment Upcoming Encounters Date Type Department Care Team (Late st Contact Info) Description 02/08/2025 10:30 AM EST Office Visit [facility] [address] [place] [address] Name, MD Hayder [address] [place] [address] Health Maintenance Due Date Last Done Comments Dental X-Ray: Full Mouth 1980 HIV Screening 1980 Alcohol/Substance Use Screening 1992 Family Planning (PISQ) 11/22/1995 HPV Vaccines (1 - 3-dose series) 11/22/1995 Hepatitis C Screening 1998 Hepatitis B Vaccines (1 of 3 - 19+ 3-dose series) 11/22/1999 Pneumococcal Vaccine: Pediatrics (0 to 5 Years) and At-Risk Patients (6 to 49) Years (1 of 2 - PCV) 11/22/1999 Dental Oral Exam 01/11/2023 07/11/2022 Dental Prophylaxis 01/11/2023 07/11/2022 Dental X-Ray: Bitewings 07/13/2023 07/11/2022 Depression Screening 09/21/2024 09/22/2023, 09/22/19 24 SDOH Screening 09/21/2024 09/22/2023 COVID-19 Vaccine ( season) 2024 04/11/2022, 11/14/2021, 05/24/2021, Additional history exists Influenza Vaccine (#1) 2024 5, 12/26/2013, 02/03/2013, Additional history exists Mammogram 04/11/2025 04/11/2024, 01/05, 01/27/2023 Disability Screening 07/19/2025 07/19/2024 Tobacco Screening 11/17/2025 11/17/2024 Cervical Cancer Screening 02/14/2027 HPV/Cotest 02/14/2027 02/15/2024, 06/04, 06/17/2021, Additional history exists Pap Smear 02/14/2027 02/15/2024, 12/05, 08/22/2022, Additional [...] patient's age to complete this topic Meningococcal B Vaccine Aged Out No l onger eligible based on patient's age to complete [...] Name Priority Date/Time Associated Diagnosis Comments XR CERVICAL SPINE 3V Routine 11/17/2024 10:50 AM EDT XR ELBOW 3+ VIEWS RIGHT Routine 11/17/2024 10:12 AM EDT Pain in right upper arm Right elbow pain BI MAMMOGRAM SCREENING TOMOSYNTHESIS BILATERAL Routine 04/11/2024 10:45 AM EST PAP SMEAR Routine 02/15/2024 9:23 AM EST HPV MRNA E6/E7 REFLEX TO HPV 16, 18/45 Routine 02/15/2024 12:00 AM EST LIPID PANEL, STANDARD Routine 02/17/2023 9:08 AM EST Screening for cholesterol level PERIODIC ORAL EVALUATION - ESTABLISHED PATIENT Routine 07/11/2022 10:00 AM EDT PROPHYLAXIS - ADULT Routine 07/11/2022 8 :00 AM EDT Dental calculus Gingival bleeding BITEWINGS - 4 RADIOGRAPHIC IMAGES Routine 07/11/2022 8:00 AM EDT Dental calculus Gingival bleeding from Last 3 Months or Most Recently Relevant to Health Maintenance Results * XR CERVICAL SPINE 3V (11/17/2024 10:50 AM EDT) Anatomical Region Laterality Modality Abdomen Radiographic Beverley ging 11/17/2024 10:5 0 AM EDT Narrative 11/17/2024 12:23 PM EDT [address] [address] XRay Report Signed Patient: Cindi Murdock MR#: [id number] : 1980 Acct:[id number] Age/Sex: 43 / F ADM Date: 11/17/24 Loc: OGX Attending Dr: Isabel Osorio DO Ordering Physician: Isabel Osorio DO Date of Service: 11/17/24 Procedure(s): XR cervical spine 3V Accession Number(s): [id number] cc: Isabel Osorio DO; Name,Hayder NOVAK EXAMINATION: XR CERVICAL SPINE CLINICAL INFORMATION: PAIN IN RIGHT UPPER ARM DECREASED R.O.M. COMPARISON: None available. TECHNIQUE: 3 views of the cervical spine were obtained. FINDINGS: Normal alignment. No compression fracture. Minimal narrowing of the disc space at C5-C6. Odontoid process is well aligned with the lateral masses of C1. Prevertebral soft tissues are unremarkable. XR/XR cervical spine 3V IMPRESSION: No significant degenerative changes. Electronically signed by: Miguel Nino MD 11/17/2024 12:21 PM EDT Dictated By: Miguel Nino MD Signed By: <Electronically signed by Miguel Nino MD in OV> 11/17/24 1221 DD/ 1050 TD/TT: 11/17/24 1100 Military Pay Clerk: Procedure Note Donotuseinterpreter, Image - 11/17/2024 [place] [address] XRay Report Signed Patient: Carleen Murdock#: [id number] : 1980Acct:[id number] Age/Sex: 43 / FADM Date: 11/17/24 Loc: OGX Attending Dr: Isabel Osorio DO Ordering Physician: Isabel Osorio DO Date of Service: 11/17/24 Procedure(s): XR cervical spine 3V Accession Number(s): [id number] cc: Isabel Osorio DO; Hayder Alvarez MD EXAMINATION: XR CERVICAL SPINE CLINICAL INFORMATION: PAIN IN RIGHT UPPER ARM DECREASED R.O.M. COMPARISON: None available. TECHNIQUE: 3 views of the cervical spine were obtained. FINDINGS: Normal alignment. No compression fracture. Minimal narrowing of the disc space at C5-C6. Odontoid process is well aligned with the lateral masses of C1. Prevertebral soft tissues are unremarkable. XR/XR cervical spine 3V IMPRESSION: No significant degenerative changes. Electronically signed by: Miguel Nino MD 11/17/2024 12:21 PM EDT Dictated By: Miguel Nino MD Signed By: <Electronically signed by Miguel Nino MD in OV> 11/17/24 1221 DD/ 1050 TD/TT: 11/17/24 1100 Military Pay Clerk: Isabel Osorio DO IMG XR PROCEDURES Final Resu lt * XR Elbow 3+ Views Right (11/17/2024 10:12 AM EDT) Anatomical Region Laterality Modality Upper Extremities, Elbow Right Radiogr aphic Imaging 11/17/2024 10:1 2 AM EDT Narrative 11/17/2024 12:18 [place] [address] XRay Report Signed Patient: Cindi Murdock MR#: [id number] : 1980 Acct:[id number] Age/Sex: 43 / F ADM Date: 11/17/24 Loc: .HHCX Attending Dr: Isabel Osorio DO Ordering Physician: Isabel Osorio DO Date of Service: 11/17/24 Procedure(s): XR elbow RT min 3V Accession Number(s): [id number] cc: Isabel Osorio DO; Name,Hayder NOVAK EXAMINATION: XR ELBOW 3 VIEWS RIGHT HISTORY: R elbow pain, decreased ROM COMPARISON: There are no prior studies available for comparison. FINDINGS: Four views of the right elbow are submitted. Osseous mineralization is normal. There is no fracture or dislocation. The joint spaces are preserved. The soft tissues are unremarkable. There is no joint effusion. XR/XR elbow RT min 3V IMPRESSION: Unremarkable examination of the right elbow. Electronically signed by: Zaid Alejo MD 11/17/2024 12:16 PM EDT RP Dictated By: Zaid Alejo MD Signed By: <Electronically signed by Zaid Alejo MD in OV> 11/17/24 1216 DD/ 1012 TD/TT: 11/17/24 1020 Military Pay Clerk: Procedure Note Donotuseinterpreter, Image - 11/17/[address] [address] XRay Report Signed Patient: Carleen Murdock#: [id number] : 1980Acct:[id number] Age/Sex: 43 / FADM Date: 11/17/24 Loc: HO.HHCX Attending Dr: Isabel Osorio DO Ordering Physician: Isabel Osorio DO Date of Service: 11/17/24 Procedure(s): XR elbow RT min 3V Accession Number(s): [id number] cc: Isabel Osorio DO; Name,Hayder NOVAK EXAMINATION: XR ELBOW 3 VIEWS RIGHT HISTORY: R elbow pain, decreased ROM COMPARISON: There are no prior studies available for comparison. FINDINGS: Four views of the right elbow are submitted. Osseous mineralization is normal. There is no fracture or dislocation. The joint spaces are preserved. The soft tissues are unremarkable. There is no joint effusion. XR/XR elbow RT min 3V IMPRESSION: Unremarkable examination of the right elbow. Electronically signed by: Zaid Alejo MD 11/17/2024 12:16 PM EDT RP Dictated By: Zaid Alejo MD Signed By: <Electronically signed by Zaid Alejo MD in OV> 11/17/24 1216 DD/ 1012 TD/TT: 11/17/24 1020 Military Pay Clerk: Isabel Osorio DO IMG XR PROCEDURES Final Resu lt * BI Mammogram Screening Tomosynthesis Bilateral (04/11/2024 10:45 AM EST) Anatomical Region Laterality Modality Breast Bilateral Mammography 04/11/2024 10:4 5 AM EST Narrative 04/17/2024 6:00 PM EST [facility] [address] [place] [address] Mammography Report Signed Patient: Cindi Murdock MR#: [id number] : 1980 Acct:[id number] Age/Sex: 43 / F ADM Date: 04/11/24 Loc: HO.MAMMO Attending Dr: Aram Hogan MD Ordering Physician: Aram Hogan MD Results: 1Negativ e Date of Service: 04/11/24 Follow Up: 1 Year From Orig inal Mammogram Procedure(s): MM tomosynthesis screening BI Accession Number(s): [id number] cc: Name,Hayder NOVAK; Aram Hogan MD EXAMINATION: MM SCREENING DIGITAL [...] by Haleigh Jacob DO in OV> 04/17/24 3875 DD/ 1045 TD/TT: 04/11/24 1108 Military Pay Clerk: Procedure Note Donotuseinterpreter, Image - 04/17/2024 [facility] [address] [place] [address] Mammography Report Signed Patient: Carleen Murdock#: [id number] : 1980Acct:[id number] Age/Sex: 43 / FADM Date: 04/11/24 Loc: HO.MAMMO Attending Dr: Aram Hogan MD Ordering Physician: Aram Hogan MDResults: 1Negativ e Date of Service: 04/11/24Follow Up: 1 Year From Orig inal Mammogram Procedure(s): MM tomosynthesis screening BI Accession Number(s): [id number] cc: Name,Hayder NOVAK; Aram Hogan MD EXAMINATION: MM SCREENING DIGITAL [...] 04/17/24 1757 DD/ 1045 TD/TT: 04/11/24 1108 Military Pay Clerk: [facility] External Provider IMG BI PROCEDURES Edited Result - Final * Pap Smear (02/15/2024 9:23 AM EST) 02/15/2024 9:23 AM EST 02/15/2024 11:00 AM EST Ralph [facility] - 02/18/2024 9:42 AM EST ----- ------- Name: Cindi Murdock Age/Sex: 43/F : 1980 Unit#: [id number] Attend Dr: Aram Hogan MD Re02/15/24 Status: DEP [facility] Dis[facility]: ----- ------- SPEC : [id number] RECD: 02/15/24 STATUS: LULA HAYWOOD NUM: [id number] JOHN: 02/15/24 [facility] DR: Aram Hogan MD ENTERED: 02/15/24 SP TYPE: Pap Smr OTHR DR: Hayder Alvarez MD ORDERED: Pap Smear Interpretation Satisfactory for evaluation. Negative for intraepithelial lesion or malignancy. Scant cellularity. HPV High Risk: Negative HPV Genotyping 16: Negative HPV Genotyping 18: Negative Clinical Information LMP: 02/15/2024 Previous PAP test: 12/19/2022, HPV + Material Received ThinPrep-Cervical Copies To: Hayder Alvarez MD [address] [place] [address] Aram Hogan MD [facility] [address] [place] [address] [address] [place] [address] ----- ------- Signed (signature on file) RICHARD Zelaya (ASCP) 02/18/24 0942 ----- ------- END OF REPORT Generic External Data Provider LAB CYTOLOGY ORDE RABLES Final Result Performing Organization Address [facility]/ZIP Co de Phone Number [facility] [address] [place] [address] [phone] * HPV mRNA E6/E7 w/Reflex to HPV Genotypes 16, 18/45 (02/15/2024 12:00 AM EST) Historical Provider MD LAB CYTOLOGY ORDERABLES F inal Result Performing Organization Address [facility] Co de Phone Number [facility] [address] [place] [address] [phone] * (ABNORMAL) Lipid Panel, Standard (02/17/2023 9:08 AM EST) Triglycerides 56 <150 mg/dL [facility] Comment:Desirable Triglyceri de: less than 150 mg/dLBorderline High Triglyceride 150-199 mg/dLHigh Triglyceride: 200-499 mg/dLVery High Triglyceride: greater than or equal to 5OO mg/dL Cholesterol 188 <200 mg/dL [facility] Comment:Desirable Cholestero l: less than 200 mg/dLBorderline High Cholesterol: 200-239 mg/dLHigh Cholesterol: greater than 239 mg/dL LDL Cholesterol Calculated 122(H) <100 mg/dL [facility] Comment:Desirable LDL: less than 100 mg/dLNear Optimal/Above Optimal LDL: 110- 129 mg/dLBorderline High LDL: 130-159 mg/dLHigh LDL: 160-189 mg/dLVery High LDL: greater than or equal to 190 mg/dL HDL Cholesterol 55 >40 mg/dL [facility] Comment:Desirable HDL: great er than 40 mg/dL Note: This HDL assay may give artificially low results in patients with liver disease. Blood Venous blood specimen / Unknown 02/17/2023 9:08 AM EST 02/17/2023 11:32 AM EST us Hayder Alvarez MD LAB BLOOD ORDERABLES Final Resul t [facility] [address] [place] [address] [phone] from Last 3 Months or Most Recently Relevant to Health Maintenance Insurance [facility] CARE < 65 [facility] < 65 [facility] - [facility] Care Teams Oil And Gas Superintendent Relationship Specialty Start Date End Date Name, MD Hayder [address] [place] [id number] PCP - General Family Medicine 09/23/19
== END 2024-12-22 07:51 | disposition home or self-care (01) ==
LOC: HO.MRI 07:50
PROVIDERS: PCP Internal Medicine Geriatric Medicine; Visit Provider Internal Medicine
DX: Q05.9 Spina bifida, unspecified (principal)
CPT/HCPCS: 72148